=== PATIENT | female | born 1930 | race Caucasian/White ===

== ENCOUNTER 2016-09-21 16:58 | Inpatient (IN) | payer MEDICARE ==
[~2016-09-21] VITALS: Ht 154.9 cm; Wt 75.4 kg
[2016-09-21 17:49] VITALS: BP 145/79
[2016-09-21] MEDS ORDERED: DOCU100C5 PO (17:58)
[2016-09-21] MEDS ORDERED: LORA1TAB PO ×2 (17:58→18:05)
[2016-09-21] MEDS ORDERED: DULO30CA2 PO (18:05)
[2016-09-21] MEDS ORDERED: RIVA1PAT3 TD (18:05)
[2016-09-21] MEDS ORDERED: OLAN5TAB9 PO (18:05)
[2016-09-21] MEDS ORDERED: CYCL1DRO EACHEYE (18:30)
[2016-09-21] MEDS ORDERED: POLY1DRO OU (18:30)
[2016-09-21] MEDS ORDERED: TRAM50TA PO (18:30)
[2016-09-21] MEDS ORDERED: BISA10SU2 RC (18:30)
[2016-09-21] MEDS ORDERED: RANI150C PO (18:30)
[2016-09-21] MEDS ORDERED: FLUT9.9S NS (18:30)
[2016-09-21] MEDS ORDERED: SALI10002 PO (18:30)
[2016-09-21] MEDS ORDERED: CALC625T44 PO (18:30)
[2016-09-21] MEDS ORDERED: FURO20TA3 PO (18:30)
[2016-09-21] MEDS ORDERED: IPRA3AMP NEB (18:30)
[2016-09-21] MEDS ORDERED: GUAI100L12 PO (18:30)
[2016-09-21] MEDS ORDERED: ACET500T68 PO (18:30)
[2016-09-21] MEDS ORDERED: NYST1000 PO (18:30)
[2016-09-21] MEDS ORDERED: CELE200C PO (18:30)
[2016-09-21] MEDS ORDERED: POLY17PO3 PO (18:30)
[2016-09-21] MEDS ORDERED: BISA5TAB4 PO (18:30)
[2016-09-21] MEDS ORDERED: MAGNESIUM HYDROXIDE 2,400 MG/30 ML ORAL.SUSP. PO PRN (20:45)
[2016-09-21] MEDS ORDERED: ACETAMINOPHEN 325 MG TABLET PO PRN (20:45)
[2016-09-21] MEDS ORDERED: METHYL SALICYLATE/MENTHOL TOPICAL OINTMENT 29GM TUBE. TP PRN (20:45)
[2016-09-21] MEDS ORDERED: MAG HYDROX/AL HYDROX/SIMETH 30 ML ORAL.SUSP PO PRN (20:45)
[2016-09-21] MEDS ORDERED: LORAZEPAM 1 MG TABLET. PO PRN (20:45)
[2016-09-21] MEDS ORDERED: NYSTATIN 100,000 UNITS/ML ORAL SUSPENSION 60ML BOTTLE. PO SCH (21:00)
[2016-09-21] MEDS: CELECOXIB 200 MG CAPSULE PO SCH (21:00)
[2016-09-21] MEDS: CYCLOSPORINE 0.05% OPTH DROPERETTE. OU SCH (21:00)
[2016-09-21] MEDS ORDERED: TRAMADOL 50 MG TABLET. PO PRN (21:00)
[2016-09-21] MEDS ORDERED: BISACODYL TAB 5 MG TABLET.DR. PO PRN (21:00)
[2016-09-21] MEDS: POLYVINYL ALCOHOL/POVIDONE/PF OPHTH SOLUTION DROPERETTE. OU SCH (21:00)
[2016-09-21] MEDS: DOCUSATE SODIUM 100 MG CAPSULE PO SCH (21:00)
[2016-09-21] MEDS ORDERED: [UNRECOGNIZED DRUG - REMARK] NS SCH (21:00)
[2016-09-21] MEDS ORDERED: BISACODYL 10 MG SUPP.RECT RC PRN (21:00)
[2016-09-21] MEDS ORDERED: GUAIFENESIN 300 MG/15 ML LIQUID. PO PRN (21:00)
[2016-09-21] MEDS ORDERED: NON FORMULARY ITEM (Ranitidine Hcl 150 MG) PO SCH (21:00)
[2016-09-21] MEDS: LORAZEPAM 1 MG TABLET. PO SCH (21:47)
[2016-09-21] MEDS ORDERED: ALBUTEROL SULFATE 2.5 MG/3 ML NEBU. NEB PRN (22:00)
[2016-09-21] MEDS ORDERED: OLAN2.5T5 PO (23:15)
[2016-09-21] MEDS ORDERED: RIVA1PAT5 TD (23:15)
--- NOTE | 2016-09-22 04:12 | EKG ---
[address] [address] Test Date: 2016-09-21 Test Time: 22:20:45 Pat Name: SALBADOR HAQ Department: Room: [facility] 1 Gender: F [employer]: SAM : 1930 Requested By: CRISTINO JI Order Number: [id number] Reading MD: Measurements Intervals [place] Rate: 64 P: 59 [place]: 232 QRS: 2 QRSD: 76 T: 68 QT: 410 QTc: 427 Interpretive Statements SINUS RHYTHM PROLONGED [place] INTERVAL QRS(T) CONTOUR ABNORMALITY CONSISTENT WITH INFERIOR INFARCT PROBABLY OLD T ABNORMALITY IN HIGH LATERAL LEADS RI6.01 Unconfirmed report No previous ECG available for comparison
[2016-09-22 06:27] VITALS: BP 136/73
[2016-09-22 08:21] LABS: BASO % 1 % (0-3); EOS # 0.1 x10^3/uL (0.0-0.7); EOS % 2 % (0-3); HEMATOCRIT 40.4 % (36.0-47.0); HEMOGLOBIN 13.6 g/dL (12.0-15.5); LYMPH # 1.3 x10^3/uL (1.0-4.8); LYMPH % 29 % (24-48); MEAN CORPUSCULAR HEMOGLOBIN 32 pg (25-35); MEAN CORPUSCULAR HGB CONC 34 g/dL (31-37); MEAN CORPUSCULAR VOLUME 94 fL (79-100); MONO # 0.4 x10^3/uL (0.0-1.1); MONO % 9 % (0-9); NEUT # 2.8 x10^3uL (1.8-7.7); NEUT % 60 % (31-73); PLATELET COUNT 233 x10^3/uL (140-400); RED BLOOD COUNT 4.29 x10^6/uL (3.50-5.40); RED CELL DISTRIBUTION WIDTH 13.4 % (11.5-14.5); WHITE BLOOD COUNT 4.6 x10^3/uL (4.0-11.0)
[2016-09-22 08:37] LABS: ALBUMIN 3.9 g/dL (3.4-5.0); ALBUMIN/GLOBULIN RATIO 1.1 (1.0-1.7); CALCIUM 9.4 mg/dL (8.5-10.1); CREATININE 0.8 mg/dL (0.6-1.0); MAGNESIUM 2.1 mg/dL (1.8-2.4); POTASSIUM 3.9 mmol/L (3.5-5.1); TOTAL BILIRUBIN 0.7 mg/dL (0.2-1.0); TOTAL PROTEIN 7.4 g/dL (6.4-8.2)
--- NOTE | 2016-09-22 08:37 | PDOC ---
Exam Rudolph Demential Exam: Rudolph Note: Please also refer to the separate dictated note~for this date of service dictated separately.~Patient seen individually. Discussed the patient with Nursing staff reviewed the chart.~Reviewed interim history and current functioning. Reviewed vital signs,~Labs/ Radiology~and current medications noted below. Continue current treatment with the changes noted in the dictated addendum note Assessment: Vital Signs: Vital Signs Date Time Temp Pulse Resp B/P Pulse Ox O2 Delivery O2 Flow Rate FiO2 09/22/16 06:27 98.2 69 18 136/73 98 I&O Intake and Output 09/22/16 07:00 Intake Total 360 ml Balance 360 ml Intake Oral 360 ml Labs: Laboratory Tests Test 09/22/16 07:58 White Blood Count 4.6x10^3/uL (4.0-11.0) Red Blood Count 4.29x10^6/uL (3.50-5.40) Hemoglobin 13.6g/dL (12.0-15.5) Hematocrit 40.4% (36.0-47.0) Mean Corpuscular Volume 94fL (79-100) Mean Corpuscular Hemoglobin 32pg (25-35) Mean Corpuscular Hemoglobin Concent 34g/dL (31-37) Red Cell Distribution Width 13.4% (11.5-14.5) Platelet Count 233x10^3/uL (140-400) Neutrophils (%) (Auto) 60% (31-73) Lymphocytes (%) (Auto) 29% (24-48) Monocytes (%) (Auto) 9% (0-9) Eosinophils (%) (Auto) 2% (0-3) Basophils (%) (Auto) 1% (0-3) Neutrophils # (Auto) 2.8x10^3uL (1.8-7.7) Lymphocytes # (Auto) 1.3x10^3/uL (1.0-4.8) Monocytes # (Auto) 0.4x10^3/uL (0.0-1.1) Eosinophils # (Auto) 0.1x10^3/uL (0.0-0.7) Basophils # (Auto) 0.0x10^3/uL (0.0-0.2) Current Medications: Meds: Current Medications Acetaminophen (Tylenol) 650 mg PRN Q6HRS PRN PO MILD PAIN / TEMP; Start at 20:45 Multi-Ingredient Ointment (Analgesic [place]) 1 alejandra PRN QID PRN TP MUSCLE PAIN; Start 09/21/16 at 20:45 Al Hydroxide/Mg Hydroxide (Mylanta Plus Xs) 15 ml PRN AFTMEALHC PRN PO DYSPEPSIA; Start 09/21/16 at 20:45 Magnesium Hydroxide (Milk Of Magnesia) 2,400 mg PRN QHS PRN PO CONSTIPATION; Start 09/21/16 at 20:45 Duloxetine HCl (Cymbalta) 30 mg DAILY PO ; Start 09/22/16 at 09:00 Lorazepam (Ativan) 1 mg PRN DAILY PRN PO ANXIETY; Start 09/21/16 at 20:45 Lorazepam (Ativan) 1 mg TID PO Last administered on 09/21/16t 21:47; Start at 21:00 Olanzapine (Zyprexa) 2.5 mg DAILY PO ; Start 09/22/16 at 09:00; Stop 09/22/16 at 09:00; Status DC Rivastigmine (Exelon) 1 patch DAILY TD ; Start 09/22/16 at 09:00; Stop 09/22/16 at 09:00; Status DC Bisacodyl (Dulcolax Tab) 10 mg PRN DAILY PRN PO CONSTIPATION; Start 09/21/16 at 21:00 Bisacodyl (Dulcolax Supp) 10 mg PRN DAILY PRN RC CONSTIPATION; Start 09/21/16 at 21:00 Calcium Polycarbophil (Fibercon) 625 mg DAILY PO ; Start 09/22/16 at 09:00 Celecoxib (Celebrex) 200 mg BID PO ; Start 09/21/16 at 21:00 Cyclosporine (Restasis) 1 drop BID OU ; Start 09/21/16 at 21:00 Docusate Sodium (Colace) 100 mg BID PO ; Start 09/21/16 at 21:00 Furosemide (Lasix) 20 mg Q3DAYS PO ; Start 09/24/16 at 09:00 Guaifenesin (Robitussin) 100 mg PRN Q6HRS PRN PO COUGH; Start 09/21/16 at 21:00 Albuterol Sulfate (Ventolin) 2.5 mg PRN Q4HRS PRN NEB SHORTNESS OF BREATH; Start 09/21/16 at 22:00 Nystatin (Mycostatin) 1 ml TID PO ; Start 09/21/16 at 21:00; Stop 09/21/16 at 23: 18; Status DC Polyethylene Glycol (miraLAX) 17 gm DAILY PO ; Start 09/22/16 at 09:00 Artificial Tears (Refresh Classic) 1 drop BID OU ; Start 09/21/16 at 21:00 Saliva Substitute (Biotene Dry Mouth) 1 alejandra DAILY PO ; Start 09/22/16 at 09:00 Tramadol HCl (Ultram) 50 mg PRN QID PRN PO MODERATE PAIN; Start 09/21/16 at 21: 00; Stop 09/21/16 at 23:18; Status DC Non-Formulary Medication 1 sprays BID NS ; Start 09/21/16 at 21:00; Stop 09/21/16 at 21:48; Status DC Non-Formulary Medication 150 mg BID PO ; Start 09/21/16 at 21:00; Stop 09/21/16 at 21:48; Status DC Fluticasone Propionate (Flonase) 2 spray DAILY NS ; Start 09/22/16 at 09:00 Famotidine (Pepcid) 20 mg BID PO ; Start 09/21/16 at 22:00 Nystatin (Mycostatin) 5 ml TID PO ; Start 09/22/16 at 09:00; Stop 09/26/16 at 08: 59 Olanzapine (Zyprexa) 2.5 mg DAILY PO ; Start 09/22/16 at 09:00 Rivastigmine (Exelon 13.3mg) 1 patch DAILY TD ; Start 09/22/16 at 09:00 Active Scripts Active Reported Olanzapine 2.5 Mg Tablet 2.5 Mg PO DAILY EXELON 13.3mg/24hr (Rivastigmine) 1 Each Patch.td24 1 Patch TD DAILY Nystatin 100,000 Unit/1 Ml Oral.susp 5 Ml PO TID 4 Days Stop Date 09/25/16 Furosemide 20 Mg Tablet 20 Mg PO Q3DAYS Bisacodyl 5 Mg Tablet.dr 10 Mg PO PRN DAILY PRN Tramadol Hcl (Tramadol HCl) 50 Mg Tablet 50 Mg PO PRN BID PRN Biotene (Saliva Substitution Combo No.9) 1,000 Ml Mouthwash 30 Ml PO DAILY Guaifenesin 100 Mg/5 Ml Liquid 100 Mg PO PRN Q6HRS PRN Duoneb 0.5-3(2.5) Mg/3 Ml (Albuterol/Ipratropium) 3 Ml Ampul.neb 3 Ml NEB PRN Q4HRS PRN Ranitidine Hcl 150 Mg Capsule 150 Mg PO BID Refresh Classic Eye Drops (Polyvinyl Alcohol/Povidone/Pf) 1 Each Droperette 1 Drop OU BID Flonase Allergy Relief (Fluticasone Propionate) 9.9 Ml [place].susp 1 Sprays NS BID Celebrex (Celecoxib) 200 Mg Capsule 200 Mg PO BID Bisacodyl 10 Mg Supp.rect 10 Mg RC PRN DAILY PRN Acetaminophen 500 Mg Tablet 500 Mg PO PRN Q4HRS PRN Restasis (Cyclosporine) 1 Each Droperette 1 Drop EACHEYE BID Polyethylene Glycol 3350 17 Gm Powd.pack 17 Gm PO DAILY Fiber-Tabs (Calcium Polycarbophil) 625 Mg Tablet 625 Mg PO DAILY Cymbalta (Duloxetine Hcl) 30 Mg Capsule.dr 30 Mg PO DAILY 14 Days Stop Date 10/05/16 Lorazepam 1 Mg Tablet 1 Mg PO TID 12 Days Stop Date 10/03/16 Lorazepam 1 Mg Tablet 1 Mg PO DAILY PRN Docusate Sodium 100 Mg Capsule 100 Mg PO BID CRISTINO JI MD Sep 22, 2016 08:37
[2016-09-22] MEDS: POLYVINYL ALCOHOL/POVIDONE/PF OPHTH SOLUTION DROPERETTE. OU SCH ×2 (08:49→19:39)
[2016-09-22] MEDS: DOCUSATE SODIUM 100 MG CAPSULE PO SCH ×2 (08:49→19:39)
[2016-09-22] MEDS: CYCLOSPORINE 0.05% OPTH DROPERETTE. OU SCH ×2 (08:49→20:06)
[2016-09-22] MEDS: FAMOTIDINE 20 MG TABLET PO SCH ×2 (08:49→19:39)
[2016-09-22] MEDS: CELECOXIB 200 MG CAPSULE PO SCH ×2 (08:49→19:39)
[2016-09-22] MEDS: LORAZEPAM 1 MG TABLET. PO SCH ×2 (08:50→14:46)
[2016-09-22] MEDS: SALIVA STIMULANT AGENT MOUTHWASH 237ML BOTTLE. PO SCH (08:55)
[2016-09-22] MEDS: FLUTICASONE 50MCG/NASAL SPRAY 16GM BOTTLE. NS SCH (08:55)
[2016-09-22] MEDS: DULOXETINE HCL 30 MG CAPSULE.DR. PO SCH (08:56)
[2016-09-22] MEDS: POLYETHYLENE GLYCOL 3350 17 GM PACKET. PO SCH (08:56)
[2016-09-22] MEDS: OLANZAPINE 2.5 MG TABLET PO SCH (08:56)
[2016-09-22] MEDS: NYSTATIN 100,000 UNITS/ML ORAL SUSPENSION 60ML BOTTLE. PO SCH ×3 (08:56→19:39)
[2016-09-22] MEDS: CALCIUM POLYCARBOPHIL 625 MG TABLET PO SCH (08:56)
[2016-09-22] MEDS: RIVASTIGMINE 13.3MG PATCH. TD SCH (08:56)
[2016-09-22] MEDS ORDERED: RIVASTIGMINE 9.5MG PATCH. TD SCH (09:00)
[2016-09-22] MEDS ORDERED: OLANZAPINE 5 MG TABLET. PO SCH (09:00)
[2016-09-22 10:37] LABS: THYROID STIM HORMONE (TSH) 1.354 uIU/mL (0.358-3.740)
[2016-09-22 10:38] LABS: IRON,SERUM 97 ug/dL (50-170)
[2016-09-22 13:09] LABS: T3 TOTAL 124 ng/dL (71-180); THYROXINE 8.4 ug/dL (4.5-12.0)
[2016-09-22 15:36] VITALS: BP 103/57
[2016-09-22] MEDS: CIPROFLOXACIN HCL 250 MG TABLET PO SCH (20:06)
[2016-09-22] MEDS: LORAZEPAM 0.5 MG TABLET PO SCH (20:06)
[2016-09-22 21:08] LABS: VITAMIN D25(OH)TOTAL 24.4 ng/mL (30.0-100.0)
--- NOTE | 2016-09-22 22:49 | HP ---
ADMIT DATE: 09/21/2016 This is a late entry for 09/21/2016. The patient was seen individually evening of 09/21/2016. Discussed with nursing staff, reviewed current and past records, talked with the nursing staff earlier in the day on 09/21/2016 as well for this assessment. IDENTIFYING DATA: The patient is an 86-year-old female referred to us from [facility] Emergency Room, [place], [place] after she presented there from [facility] on account of increasing agitation, past diagnosis of schizoaffective disorder, bipolar type with worsening confusion, auditory and visual hallucinations, paranoia, not sleeping for about 3 days and then she finally slept. She believes people are trying to kill her and that her designated power of staff attorney is the rooney. She has been threatening to kill people. Symptoms worsening for about 1 week at that facility. Behaviors noted to be dangerous to self and others. Having failed outpatient psychiatric interventions, she is referred for inpatient psychiatric stabilization. CHIEF COMPLAINT: "I didn't say any of those things." HISTORY OF PRESENT ILLNESS: Reportedly, the patient has a history of schizoaffective disorder, bipolar type, though she denies she has ever seen a psychiatrist before this. Cognitively, she is reasonably intact. Behaviors have been worsening for the past 7-10 days with increased psychotic symptoms, dangerous behaviors resulting in this referral. The patient does have a history of mood swings and denies active suicidal or homicidal ideation, but dangerous behaviors as noted above. PAST PSYCHIATRIC HISTORY: As above. PAST MEDICAL HISTORY: The patient was seen at the [facility] Emergency Room prior to admission. There is a questionable history of UTI. Culture is pending and UA was repeated. She has a history of Parkinson's disease, frequent falls, polyosteoarthritis, hypertension, generalized anxiety disorder, hyperlipidemia, insomnia. ALLERGIES: PENICILLIN, SULFA, POLYMYXIN B EYEDROPS. CURRENT PSYCHOTROPICS: Exelon patch 13.3 mg a day, Ativan 1 mg 3 times a day that 09/19/2016, Cymbalta 30 mg a day, Zyprexa 2.5 mg daily. FAMILY HISTORY: Noncontributory. SOCIAL HISTORY: No alcohol, drug abuse, physical, sexual or elder abuse history is noted. She is not known to be a perpetrator. MENTAL STATUS EXAMINATION: The patient was seen individually evening of 09/21/2016. She is reasonably oriented. Ambulation impaired, in a wheelchair. No CV, , pulmonary, eye system symptoms on review. MENTAL STATUS EXAM: Reasonably oriented. Speech coherent, a little pressured at times. Abstraction fair, computation impaired, language function intact, attention span short, mood and affect somewhat grandiose at times. VITAL SIGNS: Temperature 97.5, pulse 71, BP 145/79. IMPRESSION: Schizoaffective disorder, bipolar type, mixed with psychotic features, anxiety disorder, unspecified; impulse control disorder, unspecified. Rest diagnoses as above. PLAN: Admit to the Geropsychiatry Unit at [facility]. I will see the patient daily individually from a psychiatric standpoint. Medical followup with Dr. Andrew/Dr. Vance. We will consider tapering the Ativan. Consider changing Zyprexa to Seroquel post baseline assessment, treating the UTI if this is evident. Further changes will be made after initial baseline assessment. MAN Alexandr JI MD DR: ONEL/sarah JOB#: [id number] / [id number]
[2016-09-23 01:08] LABS: HEMOGLOBIN A1C 5.1 % (4.8-5.6)
[2016-09-23 06:28] VITALS: BP 115/78
--- NOTE | 2016-09-23 07:33 | CONS ---
DATE OF CONSULTATION: 09/22/2016 CONSULT FOR MEDICAL MANAGEMENT HISTORY OF PRESENT ILLNESS: The patient is an 86-year-old female patient, a resident at [facility], who apparently seen was at Emergency Room on the account of being agitated, confused. She has also audio and visual hallucinations, paranoid. She apparently has not slept for 3 days and when she awakens, she thinks that she told that people are trying to kill her, specifically her DPOA, all this in the background of schizophrenia and bipolar disorder. PAST MEDICAL HISTORY: Significant for chronic obstructive pulmonary disease, hypertension, hyperlipidemia, osteoarthritis, and osteoporosis. PAST SURGICAL HISTORY: Significant for bilateral total knee arthroplasty. ALLERGIES: She is allergic to PENICILLIN AND SULFA DRUGS and POLYMYXIN B. MEDICATIONS: She is currently on the following medications: Acetaminophen 500 mg every 4 hours, bisacodyl 10 mg suppositories rectally once a day as needed, bisacodyl 10 mg p.o. daily as needed for constipation, calcium polycarbophil 625 mg tablets once a day for constipation, Celebrex 200 mg p.o. b.i.d., Restasis 1 drop to both eyes twice a day, Colace 100 mg twice a day, duloxetine for Cymbalta 30 mg once a day. She is on Flonase 1 spray to each nostril twice a day, furosemide 20 mg every other day, guaifenesin 100 mg every 6 hours, DuoNeb 3 mL by nebulizer every 4 hours as needed, lorazepam 1 mg 3 times a day for anxiety. She is on nystatin 100,000 units per mL, 5 mL t.i.d. for 4 days for oral thrush, olanzapine 2.5 mg daily, polyethylene glycol 17 grams once a day, polyvinyl alcohol or Refresh 1 drop to both eyes twice a day, ranitidine 150 mg twice a day, rivastigmine 13.3 mg per 24 hour patch topically daily, saliva substitution for Biotene 30 mL p.o. daily and tramadol 50 mg p.o. b.i.d. p.r.n. for pain. FAMILY HISTORY: Unremarkable. SOCIAL HISTORY: She is currently residing at a [facility]. She does not smoke, drink alcohol or use any illicit drugs. Her DPOA is a family friend. PHYSICAL EXAMINATION: GENERAL: On examining her, she looked well and was clearly in no apparent respiratory distress, no pallor, jaundice, cyanosis, or thyromegaly. No jugular venous distension. No lower limb edema. VITAL SIGNS: Her heart rate was 75, blood pressure was 103/57, temperature was 97.3, respiratory rate 20, and oxygen saturation was 95%. The rest of clinical examination is unremarkable walk. She apparently is wheelchair bound. She self propel herself. She is a 2-person transfer from bed to wheelchair and vice versa. LABORATORY DATA: Showed a white cell count 4600, hemoglobin 13.6, hematocrit 40, MCV 94 and platelet count 233,000. Her chemistry showed a serum sodium 136, potassium 3.9, chloride 98, bicarbonate 29, anion gap of 9, BUN 11, creatinine 0.8, estimated GFR was 68 mL per minute. Her glucose was 100, calcium was 9.4, magnesium 2.1. Serum iron was 97, total iron binding capacity was 334 and iron saturation was 29. Her total bilirubin, AST, ALT, alkaline phosphatase were normal. Total protein was 7.4, albumin 3.9. Serum triglycerides were 87, cholesterol was 99, LDL was 111, VLDL was 17, HDL cholesterol was 71 and the ratio of cholesterol to high density lipoprotein ratio was 2. Her TSH was 1.35, total T4 was 8.4. Total T3 was 124. Her RPR titer are still pending at the time of this dictation. IMPRESSION: In summary, this is an 86-year-old female patient who was admitted on the account of agitation, confusion, audio and visual hallucinations, paranoid, severe insomnia. All this in the background of schizophrenic disorder with bipolar type. She is here for inpatient psychiatric stabilization. She has multiple medical problems including COPD, hypertension, hyperlipidemia, osteoarthritis, osteoporosis. She is wheelchair bound. She self propel herself, and she is a 2-person assist. Medically, all her vital signs are stable and all her lab works are all within acceptable range. I reviewed all her medications and seem to be appropriate. I will definitely continue on all these medications. Thank you, Dr. Hernandez for allowing me to participate in the care of this patient. JERRY GARCIA MD DR: MARGARITA/sarah JOB#: [id number] / [id number]
[2016-09-23] MEDS: SALIVA STIMULANT AGENT MOUTHWASH 237ML BOTTLE. PO SCH (09:07)
[2016-09-23] MEDS: NYSTATIN 100,000 UNITS/ML ORAL SUSPENSION 60ML BOTTLE. PO SCH ×3 (09:08→21:55)
[2016-09-23] MEDS: DOCUSATE SODIUM 100 MG CAPSULE PO SCH ×2 (09:09→21:51)
[2016-09-23] MEDS: DULOXETINE HCL 30 MG CAPSULE.DR. PO SCH (09:09)
[2016-09-23] MEDS: CALCIUM POLYCARBOPHIL 625 MG TABLET PO SCH (09:09)
[2016-09-23] MEDS: FAMOTIDINE 20 MG TABLET PO SCH ×2 (09:09→21:51)
[2016-09-23] MEDS: CYCLOSPORINE 0.05% OPTH DROPERETTE. OU SCH ×2 (09:10→21:50)
[2016-09-23] MEDS: CELECOXIB 200 MG CAPSULE PO SCH ×2 (09:10→21:51)
[2016-09-23] MEDS: CIPROFLOXACIN HCL 250 MG TABLET PO SCH ×2 (09:10→21:51)
[2016-09-23] MEDS: RIVASTIGMINE 13.3MG PATCH. TD SCH (09:10)
[2016-09-23] MEDS: POLYETHYLENE GLYCOL 3350 17 GM PACKET. PO SCH (09:10)
[2016-09-23] MEDS: OLANZAPINE 2.5 MG TABLET PO SCH (09:10)
[2016-09-23] MEDS: QUEtiapine 25 MG TABLET. PO SCH ×2 (09:16→14:18)
[2016-09-23] MEDS: LORAZEPAM 0.5 MG TABLET PO SCH ×3 (09:17→21:57)
[2016-09-23] MEDS: POLYVINYL ALCOHOL/POVIDONE/PF OPHTH SOLUTION DROPERETTE. OU SCH ×2 (09:18→21:50)
[2016-09-23] MEDS: FLUTICASONE 50MCG/NASAL SPRAY 16GM BOTTLE. NS SCH (09:18)
--- NOTE | 2016-09-23 09:29 | PN ---
DATE: 09/22/2016 PSYCHIATRIC PROGRESS NOTE SUBJECTIVE: The patient was seen on rounds the evening of 09/22/2016. Discussed the patient with the nursing staff, reviewed the chart. This note covers the elements not covered in my initial note. Overall, the patient's UA showed mixed [place], repeat specimen has been sent to culture. She is well oriented per nursing staff, quite delusional about her DPOA per nursing report. She is paranoid a little suspicious as I met with her at length individually. REVIEW OF SYSTEMS: Ambulation impaired, in a wheelchair. No CV, , pulmonary, eye system symptoms on review. MENTAL STATUS EXAM: Reasonably oriented. Speech coherent, rapid at times. Abstraction fair, computation impaired, language function intact, attention span short. Mood and affect somewhat labile. No active suicidal or homicidal ideation. LABORATORY DATA: Reviewed. IMPRESSION: Schizoaffective disorder, bipolar type, mixed with psychotic features, in partial remission; anxiety disorder, unspecified; impulse control disorder, unspecified; probable urinary tract infection. Rest diagnosis unchanged. PLAN: Currently, Ativan is 1 mg t.i.d. and we will gradually taper it. Continue Exelon patch 13.3 mg a day, Cymbalta 30 mg a day. Change the Zyprexa 2.5 mg daily to Seroquel 12.5 mg twice a day plus Zyprexa p.r.n. Adjust further as clinically indicated. CRISTINO JI MD DR: ONEL/sarah JOB#: [id number] / [id number]
[2016-09-23 16:24] VITALS: BP 111/74
[2016-09-23] MEDS ORDERED: FOSFOMYCIN TROMETHAMINE 3 GM PACKET PO ONE (17:45)
[2016-09-24 03:09] LABS: RPR REFLEX Negative (Non Reactive)
[2016-09-24 05:57] VITALS: BP 145/75
[2016-09-24] MEDS: SALIVA STIMULANT AGENT MOUTHWASH 237ML BOTTLE. PO SCH (08:32)
[2016-09-24] MEDS: FLUTICASONE 50MCG/NASAL SPRAY 16GM BOTTLE. NS SCH (08:32)
[2016-09-24] MEDS: POLYVINYL ALCOHOL/POVIDONE/PF OPHTH SOLUTION DROPERETTE. OU SCH ×2 (08:32→19:30)
[2016-09-24] MEDS: CYCLOSPORINE 0.05% OPTH DROPERETTE. OU SCH ×2 (08:32→19:30)
[2016-09-24] MEDS: CELECOXIB 200 MG CAPSULE PO SCH ×2 (08:32→19:30)
[2016-09-24] MEDS: DOCUSATE SODIUM 100 MG CAPSULE PO SCH ×2 (08:34→19:30)
[2016-09-24] MEDS: QUEtiapine 25 MG TABLET. PO SCH ×2 (08:34→14:20)
[2016-09-24] MEDS: CALCIUM POLYCARBOPHIL 625 MG TABLET PO SCH (08:34)
[2016-09-24] MEDS: POLYETHYLENE GLYCOL 3350 17 GM PACKET. PO SCH (08:35)
[2016-09-24] MEDS: OLANZAPINE 2.5 MG TABLET PO SCH (08:35)
[2016-09-24] MEDS: RIVASTIGMINE 13.3MG PATCH. TD SCH (08:35)
[2016-09-24] MEDS: FAMOTIDINE 20 MG TABLET PO SCH ×2 (08:35→19:30)
[2016-09-24] MEDS: CIPROFLOXACIN HCL 250 MG TABLET PO SCH ×2 (08:35→19:30)
[2016-09-24] MEDS: NYSTATIN 100,000 UNITS/ML ORAL SUSPENSION 60ML BOTTLE. PO SCH ×3 (08:35→19:33)
[2016-09-24] MEDS: LORAZEPAM 0.5 MG TABLET PO SCH ×3 (08:38→19:33)
[2016-09-24] MEDS: FUROSEMIDE 20 MG TABLET PO SCH (08:38)
[2016-09-24] MEDS: DULOXETINE HCL 30 MG CAPSULE.DR. PO SCH (08:39)
[2016-09-24 15:50] VITALS: BP 156/63
[2016-09-25 06:11] VITALS: BP 131/72
--- NOTE | 2016-09-25 07:08 | PN ---
DATE: 09/23/2016 This is a late entry for 09/23/2016, covers elements not covered in my initial note. SUBJECTIVE: Per nursing report, the patient was extremely agitated the previous evening when male staff was trying to help her with the shower. She is labile, screaming, well oriented x 4. On 09/23/2016, she has done well, had a shower with female nursing staff. We will avoid male staff helping her during showers to avoid the above. REVIEW OF SYSTEMS: Ambulation impaired, in her wheelchair. No CV, , pulmonary, eye system symptoms on review. MENTAL STATUS EXAM: Reasonably oriented. Speech coherent, abstraction fair, computation impaired, language function intact, attention span short. Mood and affect, lability is improved. LABORATORY DATA: Reviewed. IMPRESSION: History of schizoaffective disorder, bipolar type, with psychotic features; anxiety disorder, unspecified. PLAN: Continue Exelon patch 13.3 mg a day, Cymbalta 30 mg a day, Seroquel 12.5 b.i.d., Ativan is being tapered. Adjust further as clinically indicated. MAN Alexandr JI MD DR: ONEL/sarah JOB#: [id number] / [id number]
--- NOTE | 2016-09-25 08:03 | PDOC ---
Exam Rudolph Demential Exam: Rudolph Note: Please also refer to the separate dictated note~for this date of service dictated separately.~Patient seen individually. Discussed the patient with Nursing staff reviewed the chart.~Reviewed interim history and current functioning. Reviewed vital signs,~Labs/ Radiology~and current medications noted below. Continue current treatment with the changes noted in the dictated addendum note Assessment: Vital Signs: Vital Signs Date Time Temp Pulse Resp B/P Pulse Ox O2 Delivery O2 Flow Rate FiO2 09/25/16 06:11 97.0 87 22 131/72 95 09/23/16 16:24 Room Air I&O Intake and Output 09/25/16 07:00 Intake Total 840 ml Balance 840 ml Intake Oral 840 ml Current Medications: Meds: Current Medications Acetaminophen (Tylenol) 650 mg PRN Q6HRS PRN PO MILD PAIN / TEMP; Start at 20:45 Multi-Ingredient Ointment (Analgesic [employer]) 1 alejandra PRN QID PRN TP MUSCLE PAIN; Start 09/21/16 at 20:45 Al Hydroxide/Mg Hydroxide (Mylanta Plus Xs) 15 ml PRN AFTMEALHC PRN PO DYSPEPSIA; Start 09/21/16 at 20:45 Magnesium Hydroxide (Milk Of Magnesia) 2,400 mg PRN QHS PRN PO CONSTIPATION Last administered on 09/24/16 14:22; Start 09/21/16 at 20:45 Duloxetine HCl (Cymbalta) 30 mg DAILY PO Last administered on 09/24/16 08:39; Start 09/22/16 at 09:00 Lorazepam (Ativan) 1 mg PRN DAILY PRN PO ANXIETY; Start 09/21/16 at 20:45 Lorazepam (Ativan) 1 mg TID PO Last administered on 09/22/16 14:46; Start at 21:00; Stop 09/22/16 at 18:35; Status DC Olanzapine (Zyprexa) 2.5 mg DAILY PO ; Start 09/22/16 at 09:00; Stop 09/22/16 at 09:00; Status DC Rivastigmine (Exelon) 1 patch DAILY TD ; Start 09/22/16 at 09:00; Stop 09/22/16 at 09:00; Status DC Bisacodyl (Dulcolax Tab) 10 mg PRN DAILY PRN PO CONSTIPATION; Start 09/21/16 at 21:00 Bisacodyl (Dulcolax Supp) 10 mg PRN DAILY PRN RC CONSTIPATION; Start 09/21/16 at 21:00 Calcium Polycarbophil (Fibercon) 625 mg DAILY PO Last administered on 09/24/16 08:34; Start 09/22/16 at 09:00 Celecoxib (Celebrex) 200 mg BID PO Last administered on 09/24/16 19:30; Start 09/21/16 at 21:00 Cyclosporine (Restasis) 1 drop BID OU Last administered on 09/24/16 19:30; Start 09/21/16 at 21:00 Docusate Sodium (Colace) 100 mg BID PO Last administered on 09/24/16 19:30; Start 09/21/16 at 21:00 Furosemide (Lasix) 20 mg Q3DAYS PO Last administered on 09/24/16 08:38; Start 09/24/16 at 09:00 Guaifenesin (Robitussin) 100 mg PRN Q6HRS PRN PO COUGH; Start 09/21/16 at 21:00 Albuterol Sulfate (Ventolin) 2.5 mg PRN Q4HRS PRN NEB SHORTNESS OF BREATH; Start 09/21/16 at 22:00 Nystatin (Mycostatin) 1 ml TID PO ; Start 09/21/16 at 21:00; Stop 09/21/16 at 23: 18; Status DC Polyethylene Glycol (miraLAX) 17 gm DAILY PO Last administered on 09/24/16 08: 35; Start 09/22/16 at 09:00 Artificial Tears (Refresh Classic) 1 drop BID OU Last administered on 09/24/16 19:30; Start 09/21/16 at 21:00 Saliva Substitute (Biotene Dry Mouth) 1 alejandra DAILY PO Last administered on 08:32; Start 09/22/16 at 09:00 Tramadol HCl (Ultram) 50 mg PRN QID PRN PO MODERATE PAIN; Start 09/21/16 at 21: 00; Stop 09/21/16 at 23:18; Status DC Non-Formulary Medication 1 sprays BID NS ; Start 09/21/16 at 21:00; Stop 09/21/16 at 21:48; Status DC Non-Formulary Medication 150 mg BID PO ; Start 09/21/16 at 21:00; Stop 09/21/16 at 21:48; Status DC Fluticasone Propionate (Flonase) 2 spray DAILY NS Last administered on 08:32; Start 09/22/16 at 09:00 Famotidine (Pepcid) 20 mg BID PO Last administered on 09/24/16 19:30; Start 09/21/16 at 22:00 Nystatin (Mycostatin) 5 ml TID PO Last administered on 09/24/16 19:33; Start at 09:00; Stop 09/26/16 at 08:59 Olanzapine (Zyprexa) 2.5 mg DAILY PO Last administered on 09/24/16 08:35; Start 09/22/16 at 09:00 Rivastigmine (Exelon 13.3mg) 1 patch DAILY TD Last administered on 09/24/16 08: 35; Start 09/22/16 at 09:00 Ciprofloxacin (Cipro) 250 mg BID PO Last administered on 09/24/16 19:30; Start 09/22/16 at 21:00 Lorazepam (Ativan) 0.75 mg TID PO Last administered on 09/24/16 19:33; Start at 21:00; Stop 09/27/16 at 21:00 Lorazepam (Ativan) 0.5 mg TID PO ; Start 09/28/16 at 09:00; Stop 10/03/16 at 21: 00 Lorazepam (Ativan) 0.25 mg TID PO ; Start 10/04/16 at 09:00 Quetiapine Fumarate (SEROquel) 12.5 mg BID92 PO Last administered on 09/24/16 14:20; Start 09/23/16 at 09:00 Fosfomycin Tromethamine (Monurol) 3 gm 1X ONCE PO ; Start 09/23/16 at 17:45; Stop 09/23/16 at 18:07; Status DC Active Scripts Active Reported Olanzapine 2.5 Mg Tablet 2.5 Mg PO DAILY EXELON 13.3mg/24hr (Rivastigmine) 1 Each Patch.td24 1 Patch TD DAILY Nystatin 100,000 Unit/1 Ml Oral.susp 5 Ml PO TID 4 Days Stop Date 09/25/16 Furosemide 20 Mg Tablet 20 Mg PO Q3DAYS Bisacodyl 5 Mg Tablet.dr 10 Mg PO PRN DAILY PRN Tramadol Hcl (Tramadol HCl) 50 Mg Tablet 50 Mg PO PRN BID PRN Biotene (Saliva Substitution Combo No.9) 1,000 Ml Mouthwash 30 Ml PO DAILY Guaifenesin 100 Mg/5 Ml Liquid 100 Mg PO PRN Q6HRS PRN Duoneb 0.5-3(2.5) Mg/3 Ml (Albuterol/Ipratropium) 3 Ml Ampul.neb 3 Ml NEB PRN Q4HRS PRN Ranitidine Hcl 150 Mg Capsule 150 Mg PO BID Refresh Classic Eye Drops (Polyvinyl Alcohol/Povidone/Pf) 1 Each Droperette 1 Drop OU BID Flonase Allergy Relief (Fluticasone Propionate) 9.9 Ml [place].susp 1 Sprays NS BID Celebrex (Celecoxib) 200 Mg Capsule 200 Mg PO BID Bisacodyl 10 Mg Supp.rect 10 Mg RC PRN DAILY PRN Acetaminophen 500 Mg Tablet 500 Mg PO PRN Q4HRS PRN Restasis (Cyclosporine) 1 Each Droperette 1 Drop EACHEYE BID Polyethylene Glycol 3350 17 Gm Powd.pack 17 Gm PO DAILY Fiber-Tabs (Calcium Polycarbophil) 625 Mg Tablet 625 Mg PO DAILY Cymbalta (Duloxetine Hcl) 30 Mg Capsule.dr 30 Mg PO DAILY 14 Days Stop Date 10/05/16 Lorazepam 1 Mg Tablet 1 Mg PO TID 12 Days Stop Date 10/03/16 Lorazepam 1 Mg Tablet 1 Mg PO DAILY PRN Docusate Sodium 100 Mg Capsule 100 Mg PO BID Diagnosis: Problems: (1) Anxiety disorder (2) Bipolar affective, mixed, sev w/ psych (3) Impulse control disorder (4) Schizoaffective disorder, chronic condition with acute exacerbation CRISTINO JI MD Sep 25, 2016 08:03
[2016-09-25] MEDS: SALIVA STIMULANT AGENT MOUTHWASH 237ML BOTTLE. PO SCH (08:48)
[2016-09-25] MEDS: FLUTICASONE 50MCG/NASAL SPRAY 16GM BOTTLE. NS SCH (08:48)
[2016-09-25] MEDS: POLYETHYLENE GLYCOL 3350 17 GM PACKET. PO SCH (08:49)
[2016-09-25] MEDS: NYSTATIN 100,000 UNITS/ML ORAL SUSPENSION 60ML BOTTLE. PO SCH ×3 (08:49→20:41)
[2016-09-25] MEDS: RIVASTIGMINE 13.3MG PATCH. TD SCH (08:49)
[2016-09-25] MEDS: CELECOXIB 200 MG CAPSULE PO SCH ×2 (08:50→20:39)
[2016-09-25] MEDS: POLYVINYL ALCOHOL/POVIDONE/PF OPHTH SOLUTION DROPERETTE. OU SCH ×2 (08:50→20:39)
[2016-09-25] MEDS: DOCUSATE SODIUM 100 MG CAPSULE PO SCH ×2 (08:50→20:39)
[2016-09-25] MEDS: CYCLOSPORINE 0.05% OPTH DROPERETTE. OU SCH ×2 (08:50→20:39)
[2016-09-25] MEDS: CIPROFLOXACIN HCL 250 MG TABLET PO SCH ×2 (08:50→20:39)
[2016-09-25] MEDS: CALCIUM POLYCARBOPHIL 625 MG TABLET PO SCH (08:51)
[2016-09-25] MEDS: FAMOTIDINE 20 MG TABLET PO SCH ×2 (08:51→20:39)
[2016-09-25] MEDS: OLANZAPINE 2.5 MG TABLET PO SCH (08:51)
[2016-09-25] MEDS: DULOXETINE HCL 30 MG CAPSULE.DR. PO SCH (08:51)
[2016-09-25] MEDS: QUEtiapine 25 MG TABLET. PO SCH ×2 (08:51→14:09)
[2016-09-25] MEDS: LORAZEPAM 0.5 MG TABLET PO SCH ×3 (08:53→20:39)
[2016-09-25 16:17] VITALS: BP 120/71
--- NOTE | 2016-09-25 21:40 | PN ---
DATE: 09/24/2016 PSYCHIATRIC PROGRESS NOTE This note covers elements not covered in my initial note of 09/24/2016. SUBJECTIVE: Per nursing report, the patient at times has made statements that someone was going to torture her. Nursing staff; however, feel she was watching a television program and a movie where there was some of this as part of the different scenes and the patient seems to incorporate this. On close questioning, she is a little suspicious, but not delusional as above. REVIEW OF SYSTEMS: Ambulation impaired, in her wheelchair. No CV, , pulmonary, eye system symptoms on review. MENTAL STATUS EXAM: Reasonably oriented. Speech coherent, abstraction fair, computation impaired, language function intact, attention span short. Mood and affect, somewhat anxious, at times labile. No suicidal or homicidal ideation. LABORATORY DATA: Reviewed. IMPRESSION: Schizoaffective disorder, bipolar type, with psychotic features versus bipolar 1 disorder, unspecified; psychotic disorder, unspecified; anxiety disorder, unspecified. PLAN: Maintain Exelon patch 13.3 mg a day, Cymbalta 30 mg a day, Ativan is being tapered, Seroquel 12.5 mg b.i.d. If psychotic symptoms are evident, we may change Seroquel to Risperdal or increase the Seroquel. MAN Alexandr JI MD DR: ONEL/sarah JOB#: [id number] / [id number]
[2016-09-26 05:58] VITALS: BP 115/66
[2016-09-26] MEDS: CYCLOSPORINE 0.05% OPTH DROPERETTE. OU SCH ×2 (07:48→19:58)
[2016-09-26] MEDS: POLYVINYL ALCOHOL/POVIDONE/PF OPHTH SOLUTION DROPERETTE. OU SCH ×2 (07:48→19:58)
[2016-09-26] MEDS: RIVASTIGMINE 13.3MG PATCH. TD SCH (07:48)
[2016-09-26] MEDS: DULOXETINE HCL 30 MG CAPSULE.DR. PO SCH (07:48)
[2016-09-26] MEDS: FAMOTIDINE 20 MG TABLET PO SCH ×2 (07:49→19:58)
[2016-09-26] MEDS: CELECOXIB 200 MG CAPSULE PO SCH ×2 (07:49→19:58)
[2016-09-26] MEDS: CIPROFLOXACIN HCL 250 MG TABLET PO SCH ×2 (07:49→19:57)
[2016-09-26] MEDS: OLANZAPINE 2.5 MG TABLET PO SCH (07:49)
[2016-09-26] MEDS: DOCUSATE SODIUM 100 MG CAPSULE PO SCH ×2 (07:49→19:58)
[2016-09-26] MEDS: POLYETHYLENE GLYCOL 3350 17 GM PACKET. PO SCH (07:49)
[2016-09-26] MEDS: QUEtiapine 25 MG TABLET. PO SCH ×4 (07:49→19:58)
[2016-09-26] MEDS: CALCIUM POLYCARBOPHIL 625 MG TABLET PO SCH (07:49)
[2016-09-26] MEDS: SALIVA STIMULANT AGENT MOUTHWASH 237ML BOTTLE. PO SCH (07:50)
[2016-09-26] MEDS: FLUTICASONE 50MCG/NASAL SPRAY 16GM BOTTLE. NS SCH (07:51)
[2016-09-26] MEDS: LORAZEPAM 0.5 MG TABLET PO SCH ×3 (07:56→20:00)
[2016-09-26 16:12] VITALS: BP 118/52
[2016-09-26] MEDS: CHOLECALCIFEROL (VITAMIN D3) 1,000 UNIT TABLET PO SCH (16:35)
--- NOTE | 2016-09-27 05:34 | PN ---
DATE: 09/25/2016 This is a late entry for 09/25/2016 and covers elements not covered in my initial note. SUBJECTIVE: The patient remains somewhat anxious, repetitive about discharge plans and I processed this with her. Per the nursing report, the patient otherwise has been cooperative, somewhat anxious, obsessive. REVIEW OF SYSTEMS: Ambulation impaired, in a wheelchair. No CV, , pulmonary, eye system symptoms on review. MENTAL STATUS EXAM: Oriented reasonably. Speech coherent, abstraction fair, computation impaired, language function intact, attention span short. Mood and affect, intermittently somewhat anxious, labile. DIAGNOSES: Mentioned in my initial note. PLAN: Continue current psychotropics mentioned in my initial note. Adjust further as clinically indicated. MAN Alexandr JI MD DR: ONEL/sarah JOB#: [id number] / [id number]
[2016-09-27 06:31] VITALS: BP 153/78
[2016-09-27] MEDS: RIVASTIGMINE 13.3MG PATCH. TD SCH (07:39)
[2016-09-27] MEDS: CELECOXIB 200 MG CAPSULE PO SCH ×2 (07:40→19:58)
[2016-09-27] MEDS: POLYVINYL ALCOHOL/POVIDONE/PF OPHTH SOLUTION DROPERETTE. OU SCH ×2 (07:40→19:58)
[2016-09-27] MEDS: CALCIUM POLYCARBOPHIL 625 MG TABLET PO SCH (07:40)
[2016-09-27] MEDS: DULOXETINE HCL 30 MG CAPSULE.DR. PO SCH (07:40)
[2016-09-27] MEDS: QUEtiapine 25 MG TABLET. PO SCH ×4 (07:40→19:58)
[2016-09-27] MEDS: FAMOTIDINE 20 MG TABLET PO SCH ×2 (07:40→19:58)
[2016-09-27] MEDS: FUROSEMIDE 20 MG TABLET PO SCH (07:40)
[2016-09-27] MEDS: DOCUSATE SODIUM 100 MG CAPSULE PO SCH ×2 (07:40→19:58)
[2016-09-27] MEDS: CIPROFLOXACIN HCL 250 MG TABLET PO SCH ×2 (07:40→19:58)
[2016-09-27] MEDS: SALIVA STIMULANT AGENT MOUTHWASH 237ML BOTTLE. PO SCH (07:41)
[2016-09-27] MEDS: POLYETHYLENE GLYCOL 3350 17 GM PACKET. PO SCH (07:41)
[2016-09-27] MEDS: FLUTICASONE 50MCG/NASAL SPRAY 16GM BOTTLE. NS SCH (07:41)
[2016-09-27] MEDS: LORAZEPAM 0.5 MG TABLET PO SCH ×3 (07:43→20:02)
[2016-09-27] MEDS: CYCLOSPORINE 0.05% OPTH DROPERETTE. OU SCH ×2 (07:44→19:58)
[2016-09-27 08:22] LABS: BASO % 1 % (0-3); EOS # 0.2 x10^3/uL (0.0-0.7); EOS % 5 % (0-3); HEMATOCRIT 40.5 % (36.0-47.0); HEMOGLOBIN 13.3 g/dL (12.0-15.5); LYMPH # 1.5 x10^3/uL (1.0-4.8); LYMPH % 42 % (24-48); MEAN CORPUSCULAR HEMOGLOBIN 32 pg (25-35); MEAN CORPUSCULAR HGB CONC 33 g/dL (31-37); MEAN CORPUSCULAR VOLUME 97 fL (79-100); MONO # 0.3 x10^3/uL (0.0-1.1); MONO % 9 % (0-9); NEUT # 1.5 x10^3uL (1.8-7.7); NEUT % 43 % (31-73); PLATELET COUNT 203 x10^3/uL (140-400); RED BLOOD COUNT 4.19 x10^6/uL (3.50-5.40); RED CELL DISTRIBUTION WIDTH 13.7 % (11.5-14.5); WHITE BLOOD COUNT 3.5 x10^3/uL (4.0-11.0)
[2016-09-27 08:42] LABS: ALBUMIN 3.4 g/dL (3.4-5.0); CALCIUM 8.9 mg/dL (8.5-10.1); GFR 52.6; MAGNESIUM 2.4 mg/dL (1.8-2.4); POTASSIUM 4.3 mmol/L (3.5-5.1); TOTAL BILIRUBIN 0.3 mg/dL (0.2-1.0); TOTAL PROTEIN 6.8 g/dL (6.4-8.2)
[2016-09-27 15:25] VITALS: BP 102/63
[2016-09-27] MEDS: CHOLECALCIFEROL (VITAMIN D3) 1,000 UNIT TABLET PO SCH (17:03)
--- NOTE | 2016-09-27 20:46 | PDOC ---
Exam Rudolph Demential Exam: Rudolph Note: Please also refer to the separate dictated note~for this date of service dictated separately.~Patient seen individually. Discussed the patient with Nursing staff reviewed the chart.~Reviewed interim history and current functioning. Reviewed vital signs,~Labs/ Radiology~and current medications noted below. Continue current treatment with the changes noted in the dictated addendum note Assessment: Vital Signs: Vital Signs Date Time Temp Pulse Resp B/P Pulse Ox O2 Delivery O2 Flow Rate FiO2 09/27/16 15:25 97.9 77 20 102/63 97 09/27/16 06:31 Room Air I&O Intake and Output 09/27/16 07:00 Intake Total 600 ml Balance 600 ml Intake Oral 600 ml Labs: Laboratory Tests Test 09/27/16 07:45 White Blood Count 3.5x10^3/uL (4.0-11.0) L Red Blood Count 4.19x10^6/uL (3.50-5.40) Hemoglobin 13.3g/dL (12.0-15.5) Hematocrit 40.5% (36.0-47.0) Mean Corpuscular Volume 97fL (79-100) Mean Corpuscular Hemoglobin 32pg (25-35) Mean Corpuscular Hemoglobin Concent 33g/dL (31-37) Red Cell Distribution Width 13.7% (11.5-14.5) Platelet Count 203x10^3/uL (140-400) Neutrophils (%) (Auto) 43% (31-73) Lymphocytes (%) (Auto) 42% (24-48) Monocytes (%) (Auto) 9% (0-9) Eosinophils (%) (Auto) 5% (0-3) H Basophils (%) (Auto) 1% (0-3) Neutrophils # (Auto) 1.5x10^3uL (1.8-7.7) L Lymphocytes # (Auto) 1.5x10^3/uL (1.0-4.8) Monocytes # (Auto) 0.3x10^3/uL (0.0-1.1) Eosinophils # (Auto) 0.2x10^3/uL (0.0-0.7) Basophils # (Auto) 0.0x10^3/uL (0.0-0.2) Sodium Level 144mmol/L (136-145) Potassium Level 4.3mmol/L (3.5-5.1) Chloride Level 105mmol/L (98-107) Carbon Dioxide Level 32mmol/L (21-32) Anion Gap 7 (6-14) Blood Urea Nitrogen 18mg/dL (7-20) Creatinine 1.0mg/dL (0.6-1.0) Estimated GFR (Cockcroft-Gault) 52.6 BUN/Creatinine Ratio 18 (6-20) Glucose Level 97mg/dL (70-99) Calcium Level 8.9mg/dL (8.5-10.1) Magnesium Level 2.4mg/dL (1.8-2.4) Total Bilirubin 0.3mg/dL (0.2-1.0) Aspartate Amino Transferase (AST) 20U/L (15-37) Alanine Aminotransferase (ALT) 19U/L (14-59) Alkaline Phosphatase 92U/L (46-116) Total Protein 6.8g/dL (6.4-8.2) Albumin 3.4g/dL (3.4-5.0) Albumin/Globulin Ratio 1.0 (1.0-1.7) Current Medications: Meds: Current Medications Acetaminophen (Tylenol) 650 mg PRN Q6HRS PRN PO MILD PAIN / TEMP Last administered on 09/26/16 08:20; Start 09/21/16 at 20:45 Multi-Ingredient Ointment (Analgesic [place]) 1 alejandra PRN QID PRN TP MUSCLE PAIN; Start 09/21/16 at 20:45 Al Hydroxide/Mg Hydroxide (Mylanta Plus Xs) 15 ml PRN AFTMEALHC PRN PO DYSPEPSIA; Start 09/21/16 at 20:45 Magnesium Hydroxide (Milk Of Magnesia) 2,400 mg PRN QHS PRN PO CONSTIPATION Last administered on 09/24/16 14:22; Start 09/21/16 at 20:45 Duloxetine HCl (Cymbalta) 30 mg DAILY PO Last administered on 09/27/16 07:40; Start 09/22/16 at 09:00 Lorazepam (Ativan) 1 mg PRN DAILY PRN PO ANXIETY; Start 09/21/16 at 20:45 Lorazepam (Ativan) 1 mg TID PO Last administered on 09/22/16 14:46; Start at 21:00; Stop 09/22/16 at 18:35; Status DC Olanzapine (Zyprexa) 2.5 mg DAILY PO ; Start 09/22/16 at 09:00; Stop 09/22/16 at 09:00; Status DC Rivastigmine (Exelon) 1 patch DAILY TD ; Start 09/22/16 at 09:00; Stop 09/22/16 at 09:00; Status DC Bisacodyl (Dulcolax Tab) 10 mg PRN DAILY PRN PO CONSTIPATION; Start 09/21/16 at 21:00 Bisacodyl (Dulcolax Supp) 10 mg PRN DAILY PRN RC CONSTIPATION; Start 09/21/16 at 21:00 Calcium Polycarbophil (Fibercon) 625 mg DAILY PO Last administered on 07:40; Start 09/22/16 at 09:00 Celecoxib (Celebrex) 200 mg BID PO Last administered on 09/27/16 19:58; Start 09/21/16 at 21:00 Cyclosporine (Restasis) 1 drop BID OU Last administered on 09/27/16 19:58; Start 09/21/16 at 21:00 Docusate Sodium (Colace) 100 mg BID PO Last administered on 09/27/16 19:58; Start 09/21/16 at 21:00 Furosemide (Lasix) 20 mg Q3DAYS PO Last administered on 09/27/16 07:40; Start 09/24/16 at 09:00 Guaifenesin (Robitussin) 100 mg PRN Q6HRS PRN PO COUGH; Start 09/21/16 at 21:00 Albuterol Sulfate (Ventolin) 2.5 mg PRN Q4HRS PRN NEB SHORTNESS OF BREATH; Start 09/21/16 at 22:00 Nystatin (Mycostatin) 1 ml TID PO ; Start 09/21/16 at 21:00; Stop 09/21/16 at 23: 18; Status DC Polyethylene Glycol (miraLAX) 17 gm DAILY PO Last administered on 09/27/16 07: 41; Start 09/22/16 at 09:00 Artificial Tears (Refresh Classic) 1 drop BID OU Last administered on 19:58; Start 09/21/16 at 21:00 Saliva Substitute (Biotene Dry Mouth) 1 alejandra DAILY PO Last administered on 07:41; Start 09/22/16 at 09:00 Tramadol HCl (Ultram) 50 mg PRN QID PRN PO MODERATE PAIN; Start 09/21/16 at 21: 00; Stop 09/21/16 at 23:18; Status DC Non-Formulary Medication 1 sprays BID NS ; Start 09/21/16 at 21:00; Stop 09/21/16 at 21:48; Status DC Non-Formulary Medication 150 mg BID PO ; Start 09/21/16 at 21:00; Stop 09/21/16 at 21:48; Status DC Fluticasone Propionate (Flonase) 2 spray DAILY NS Last administered on 07:41; Start 09/22/16 at 09:00 Famotidine (Pepcid) 20 mg BID PO Last administered on 09/27/16 19:58; Start at 22:00 Nystatin (Mycostatin) 5 ml TID PO Last administered on 09/25/16 20:41; Start at 09:00; Stop 09/26/16 at 08:59; Status DC Olanzapine (Zyprexa) 2.5 mg DAILY PO Last administered on 09/26/16 07:49; Start 09/22/16 at 09:00; Stop 09/26/16 at 10:15; Status DC Rivastigmine (Exelon 13.3mg) 1 patch DAILY TD Last administered on 09/27/16 07 :39; Start 09/22/16 at 09:00 Ciprofloxacin (Cipro) 250 mg BID PO Last administered on 09/27/16 19:58; Start 09/22/16 at 21:00 Lorazepam (Ativan) 0.75 mg TID PO Last administered on 09/27/16 20:02; Start 09/22/16 at 21:00; Stop 09/27/16 at 21:00 Lorazepam (Ativan) 0.5 mg TID PO ; Start 09/28/16 at 09:00; Stop 10/03/16 at 21: 00 Lorazepam (Ativan) 0.25 mg TID PO ; Start 10/04/16 at 09:00 Quetiapine Fumarate (SEROquel) 12.5 mg BID92 PO Last administered on 09/26/16 07:49; Start 09/23/16 at 09:00; Stop 09/26/16 at 10:15; Status DC Fosfomycin Tromethamine (Monurol) 3 gm 1X ONCE PO ; Start 09/23/16 at 17:45; Stop 09/23/16 at 18:07; Status DC Quetiapine Fumarate (SEROquel) 12.5 mg QID PO Last administered on 09/27/16 19 :58; Start 09/26/16 at 13:00 Vitamin D (Vitamin D3) 2,000 unit DAILYBFRSUP PO Last administered on 17:03; Start 09/26/16 at 17:00 Active Scripts Active Reported Olanzapine 2.5 Mg Tablet 2.5 Mg PO DAILY EXELON 13.3mg/24hr (Rivastigmine) 1 Each Patch.td24 1 Patch TD DAILY Nystatin 100,000 Unit/1 Ml Oral.susp 5 Ml PO TID 4 Days Stop Date 09/25/16 Furosemide 20 Mg Tablet 20 Mg PO Q3DAYS Bisacodyl 5 Mg Tablet.dr 10 Mg PO PRN DAILY PRN Tramadol Hcl (Tramadol HCl) 50 Mg Tablet 50 Mg PO PRN BID PRN Biotene (Saliva Substitution Combo No.9) 1,000 Ml Mouthwash 30 Ml PO DAILY Guaifenesin 100 Mg/5 Ml Liquid 100 Mg PO PRN Q6HRS PRN Duoneb 0.5-3(2.5) Mg/3 Ml (Albuterol/Ipratropium) 3 Ml Ampul.neb 3 Ml NEB PRN Q4HRS PRN Ranitidine Hcl 150 Mg Capsule 150 Mg PO BID Refresh Classic Eye Drops (Polyvinyl Alcohol/Povidone/Pf) 1 Each Droperette 1 Drop OU BID Flonase Allergy Relief (Fluticasone Propionate) 9.9 Ml [place].susp 1 Sprays NS BID Celebrex (Celecoxib) 200 Mg Capsule 200 Mg PO BID Bisacodyl 10 Mg Supp.rect 10 Mg RC PRN DAILY PRN Acetaminophen 500 Mg Tablet 500 Mg PO PRN Q4HRS PRN Restasis (Cyclosporine) 1 Each Droperette 1 Drop EACHEYE BID Polyethylene Glycol 3350 17 Gm Powd.pack 17 Gm PO DAILY Fiber-Tabs (Calcium Polycarbophil) 625 Mg Tablet 625 Mg PO DAILY Cymbalta (Duloxetine Hcl) 30 Mg Capsule.dr 30 Mg PO DAILY 14 Days Stop Date 10/05/16 Lorazepam 1 Mg Tablet 1 Mg PO TID 12 Days Stop Date 10/03/16 Lorazepam 1 Mg Tablet 1 Mg PO DAILY PRN Docusate Sodium 100 Mg Capsule 100 Mg PO BID Diagnosis: Problems: (1) Schizoaffective disorder, chronic condition with acute exacerbation (2) Impulse control disorder (3) Bipolar affective, mixed, sev w/ psych (4) Anxiety disorder CRISTINO JI MD Sep 27, 2016 20:46
[2016-09-28 05:44] VITALS: BP 136/76
[2016-09-28] MEDS: DOCUSATE SODIUM 100 MG CAPSULE PO SCH ×2 (08:18→19:24)
[2016-09-28] MEDS: POLYETHYLENE GLYCOL 3350 17 GM PACKET. PO SCH (08:18)
[2016-09-28] MEDS: DULOXETINE HCL 30 MG CAPSULE.DR. PO SCH (08:18)
[2016-09-28] MEDS: CELECOXIB 200 MG CAPSULE PO SCH ×2 (08:18→19:24)
[2016-09-28] MEDS: RIVASTIGMINE 13.3MG PATCH. TD SCH (08:18)
[2016-09-28] MEDS: CIPROFLOXACIN HCL 250 MG TABLET PO SCH ×2 (08:18→19:25)
[2016-09-28] MEDS: POLYVINYL ALCOHOL/POVIDONE/PF OPHTH SOLUTION DROPERETTE. OU SCH ×2 (08:18→19:25)
[2016-09-28] MEDS: FAMOTIDINE 20 MG TABLET PO SCH ×2 (08:18→19:24)
[2016-09-28] MEDS: SALIVA STIMULANT AGENT MOUTHWASH 237ML BOTTLE. PO SCH (08:18)
[2016-09-28] MEDS: CYCLOSPORINE 0.05% OPTH DROPERETTE. OU SCH ×2 (08:18→19:25)
[2016-09-28] MEDS: CALCIUM POLYCARBOPHIL 625 MG TABLET PO SCH (08:18)
[2016-09-28] MEDS: QUEtiapine 25 MG TABLET. PO SCH ×4 (08:18→19:25)
[2016-09-28] MEDS: FLUTICASONE 50MCG/NASAL SPRAY 16GM BOTTLE. NS SCH (08:19)
[2016-09-28] MEDS: LORAZEPAM 0.5 MG TABLET PO SCH ×3 (08:24→19:24)
[2016-09-28 15:15] VITALS: BP 106/65
[2016-09-28] MEDS: CHOLECALCIFEROL (VITAMIN D3) 1,000 UNIT TABLET PO SCH (17:27)
--- NOTE | 2016-09-28 17:37 | PN ---
DATE: 09/26/2016 PSYCHIATRIC PROGRESS NOTE This is a late entry 09/26/2016. SUBJECTIVE: Temperature 97.7, BP 115/66, pulse 75. The patient was staffed at lengthy treatment team meeting with the entire team and the patient's friend who is her DPOA and the friend's attended the conference. Reportedly, the friend's is the vocational rehabilitation administrator of the [facility] the patient resides at and patient . We reviewed carefully her past history, but this is not evident for bipolar disorder. The patient is obsessive, repetitive wanting to get back to [facility]. No clear family history of bipolar disorder. Her primary care physician, Dr. Parry has been treating her on Ativan and her DPOA indicated Dr. Parry felt the patient may have bipolar disorder. The patient gets confused, thinks she is here for rehab. Vitamin D was started. REVIEW OF SYSTEMS: Ambulation impaired in a wheelchair. No CV, , pulmonary, eye system symptoms on review. MENTAL STATUS EXAM: Reasonably oriented. Speech coherent, abstraction fair, computation impaired, language function intact. Mood and affect, lability is improved. LABORATORY DATA: Reviewed. 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 PLAN: Stop Zyprexa 2.5 mg daily, increase Seroquel from 12.5 mg twice a day to 12.5 mg 4 times a day. Continue Cymbalta 30 mg a day, Exelon patch 13.3 mg a day, Ativan is being tapered. Adjust further as clinically indicated. MAN Alexandr JI MD DR: ONEL/sarah JOB#: [id number] / [id number]
--- NOTE | 2016-09-28 18:19 | PDOC ---
Exam Rudolph Demential Exam: Rudolph Note: Please also refer to the separate dictated note~for this date of service dictated separately.~Patient seen individually. Discussed the patient with Nursing staff reviewed the chart.~Reviewed interim history and current functioning. Reviewed vital signs,~Labs/ Radiology~and current medications noted below. Continue current treatment with the changes noted in the dictated addendum note Assessment: Vital Signs: Vital Signs Date Time Temp Pulse Resp B/P Pulse Ox O2 Delivery O2 Flow Rate FiO2 09/28/16 15:15 97.6 82 20 106/65 94 Room Air I&O Intake and Output 09/28/16 07:00 Intake Total 1080 ml Balance 1080 ml Intake Oral 1080 ml Current Medications: Meds: Current Medications Acetaminophen (Tylenol) 650 mg PRN Q6HRS PRN PO MILD PAIN / TEMP Last administered on 09/26/16 08:20; Start 09/21/16 at 20:45 Multi-Ingredient Ointment (Analgesic [place]) 1 alejandra PRN QID PRN TP MUSCLE PAIN; Start 09/21/16 at 20:45 Al Hydroxide/Mg Hydroxide (Mylanta Plus Xs) 15 ml PRN AFTMEALHC PRN PO DYSPEPSIA; Start 09/21/16 at 20:45 Magnesium Hydroxide (Milk Of Magnesia) 2,400 mg PRN QHS PRN PO CONSTIPATION Last administered on 09/24/16 14:22; Start 09/21/16 at 20:45 Duloxetine HCl (Cymbalta) 30 mg DAILY PO Last administered on 09/28/16 08:18; Start 09/22/16 at 09:00 Lorazepam (Ativan) 1 mg PRN DAILY PRN PO ANXIETY; Start 09/21/16 at 20:45 Lorazepam (Ativan) 1 mg TID PO Last administered on 09/22/16 14:46; Start at 21:00; Stop 09/22/16 at 18:35; Status DC Olanzapine (Zyprexa) 2.5 mg DAILY PO ; Start 09/22/16 at 09:00; Stop 09/22/16 at 09:00; Status DC Rivastigmine (Exelon) 1 patch DAILY TD ; Start 09/22/16 at 09:00; Stop 09/22/16 at 09:00; Status DC Bisacodyl (Dulcolax Tab) 10 mg PRN DAILY PRN PO CONSTIPATION; Start 09/21/16 at 21:00 Bisacodyl (Dulcolax Supp) 10 mg PRN DAILY PRN RC CONSTIPATION; Start 09/21/16 at 21:00 Calcium Polycarbophil (Fibercon) 625 mg DAILY PO Last administered on 08:18; Start 09/22/16 at 09:00 Celecoxib (Celebrex) 200 mg BID PO Last administered on 09/28/16 08:18; Start 09/21/16 at 21:00 Cyclosporine (Restasis) 1 drop BID OU Last administered on 09/28/16 08:18; Start 09/21/16 at 21:00 Docusate Sodium (Colace) 100 mg BID PO Last administered on 09/28/16 08:18; Start 09/21/16 at 21:00 Furosemide (Lasix) 20 mg Q3DAYS PO Last administered on 09/27/16 07:40; Start 09/24/16 at 09:00 Guaifenesin (Robitussin) 100 mg PRN Q6HRS PRN PO COUGH; Start 09/21/16 at 21:00 Albuterol Sulfate (Ventolin) 2.5 mg PRN Q4HRS PRN NEB SHORTNESS OF BREATH; Start 09/21/16 at 22:00 Nystatin (Mycostatin) 1 ml TID PO ; Start 09/21/16 at 21:00; Stop 09/21/16 at 23: 18; Status DC Polyethylene Glycol (miraLAX) 17 gm DAILY PO Last administered on 09/28/16 08: 18; Start 09/22/16 at 09:00 Artificial Tears (Refresh Classic) 1 drop BID OU Last administered on 08:18; Start 09/21/16 at 21:00 Saliva Substitute (Biotene Dry Mouth) 1 alejandra DAILY PO Last administered on 08:18; Start 09/22/16 at 09:00 Tramadol HCl (Ultram) 50 mg PRN QID PRN PO MODERATE PAIN; Start 09/21/16 at 21: 00; Stop 09/21/16 at 23:18; Status DC Non-Formulary Medication 1 sprays BID NS ; Start 09/21/16 at 21:00; Stop 09/21/16 at 21:48; Status DC Non-Formulary Medication 150 mg BID PO ; Start 09/21/16 at 21:00; Stop 09/21/16 at 21:48; Status DC Fluticasone Propionate (Flonase) 2 spray DAILY NS Last administered on 08:19; Start 09/22/16 at 09:00 Famotidine (Pepcid) 20 mg BID PO Last administered on 09/28/16 08:18; Start at 22:00 Nystatin (Mycostatin) 5 ml TID PO Last administered on 09/25/16 20:41; Start at 09:00; Stop 09/26/16 at 08:59; Status DC Olanzapine (Zyprexa) 2.5 mg DAILY PO Last administered on 09/26/16 07:49; Start 09/22/16 at 09:00; Stop 09/26/16 at 10:15; Status DC Rivastigmine (Exelon 13.3mg) 1 patch DAILY TD Last administered on 09/28/16 08 :18; Start 09/22/16 at 09:00 Ciprofloxacin (Cipro) 250 mg BID PO Last administered on 09/28/16 08:18; Start 09/22/16 at 21:00 Lorazepam (Ativan) 0.75 mg TID PO Last administered on 09/27/16 20:02; Start 09/22/16 at 21:00; Stop 09/27/16 at 21:00; Status DC Lorazepam (Ativan) 0.5 mg TID PO Last administered on 09/28/16 13:34; Start at 09:00; Stop 10/03/16 at 21:00 Lorazepam (Ativan) 0.25 mg TID PO ; Start 10/04/16 at 09:00 Quetiapine Fumarate (SEROquel) 12.5 mg BID92 PO Last administered on 09/26/16 07:49; Start 09/23/16 at 09:00; Stop 09/26/16 at 10:15; Status DC Fosfomycin Tromethamine (Monurol) 3 gm 1X ONCE PO ; Start 09/23/16 at 17:45; Stop 09/23/16 at 18:07; Status DC Quetiapine Fumarate (SEROquel) 12.5 mg QID PO Last administered on 09/28/16t 17 :27; Start 09/26/16 at 13:00 Vitamin D (Vitamin D3) 2,000 unit DAILYBFRSUP PO Last administered on t 17:27; Start 09/26/16 at 17:00 Active Scripts Active Reported Olanzapine 2.5 Mg Tablet 2.5 Mg PO DAILY EXELON 13.3mg/24hr (Rivastigmine) 1 Each Patch.td24 1 Patch TD DAILY Nystatin 100,000 Unit/1 Ml Oral.susp 5 Ml PO TID 4 Days Stop Date 09/25/16 Furosemide 20 Mg Tablet 20 Mg PO Q3DAYS Bisacodyl 5 Mg Tablet.dr 10 Mg PO PRN DAILY PRN Tramadol Hcl (Tramadol HCl) 50 Mg Tablet 50 Mg PO PRN BID PRN Biotene (Saliva Substitution Combo No.9) 1,000 Ml Mouthwash 30 Ml PO DAILY Guaifenesin 100 Mg/5 Ml Liquid 100 Mg PO PRN Q6HRS PRN Duoneb 0.5-3(2.5) Mg/3 Ml (Albuterol/Ipratropium) 3 Ml Ampul.neb 3 Ml NEB PRN Q4HRS PRN Ranitidine Hcl 150 Mg Capsule 150 Mg PO BID Refresh Classic Eye Drops (Polyvinyl Alcohol/Povidone/Pf) 1 Each Droperette 1 Drop OU BID Flonase Allergy Relief (Fluticasone Propionate) 9.9 Ml [place].susp 1 Sprays NS BID Celebrex (Celecoxib) 200 Mg Capsule 200 Mg PO BID Bisacodyl 10 Mg Supp.rect 10 Mg RC PRN DAILY PRN Acetaminophen 500 Mg Tablet 500 Mg PO PRN Q4HRS PRN Restasis (Cyclosporine) 1 Each Droperette 1 Drop EACHEYE BID Polyethylene Glycol 3350 17 Gm Powd.pack 17 Gm PO DAILY Fiber-Tabs (Calcium Polycarbophil) 625 Mg Tablet 625 Mg PO DAILY Cymbalta (Duloxetine Hcl) 30 Mg Capsule.dr 30 Mg PO DAILY 14 Days Stop Date 10/05/16 Lorazepam 1 Mg Tablet 1 Mg PO TID 12 Days Stop Date 10/03/16 Lorazepam 1 Mg Tablet 1 Mg PO DAILY PRN Docusate Sodium 100 Mg Capsule 100 Mg PO BID Diagnosis: Problems: (1) Schizoaffective disorder, chronic condition with acute exacerbation (2) Impulse control disorder (3) Bipolar affective, mixed, sev w/ psych (4) Anxiety disorder CRISTINO JI MD Sep 28, 2016 18:19
[2016-09-29 05:48] VITALS: BP 150/73
[2016-09-29] MEDS: QUEtiapine 25 MG TABLET. PO SCH ×4 (07:38→20:10)
[2016-09-29] MEDS: POLYETHYLENE GLYCOL 3350 17 GM PACKET. PO SCH (07:38)
[2016-09-29] MEDS: SALIVA STIMULANT AGENT MOUTHWASH 237ML BOTTLE. PO SCH (07:38)
[2016-09-29] MEDS: FLUTICASONE 50MCG/NASAL SPRAY 16GM BOTTLE. NS SCH (07:38)
[2016-09-29] MEDS: RIVASTIGMINE 13.3MG PATCH. TD SCH (07:38)
[2016-09-29] MEDS: DOCUSATE SODIUM 100 MG CAPSULE PO SCH ×2 (07:39→20:10)
[2016-09-29] MEDS: CIPROFLOXACIN HCL 250 MG TABLET PO SCH ×2 (07:39→20:10)
[2016-09-29] MEDS: CYCLOSPORINE 0.05% OPTH DROPERETTE. OU SCH ×2 (07:39→20:09)
[2016-09-29] MEDS: POLYVINYL ALCOHOL/POVIDONE/PF OPHTH SOLUTION DROPERETTE. OU SCH ×2 (07:39→20:10)
[2016-09-29] MEDS: FAMOTIDINE 20 MG TABLET PO SCH ×2 (07:39→20:13)
[2016-09-29] MEDS: DULOXETINE HCL 30 MG CAPSULE.DR. PO SCH (07:39)
[2016-09-29] MEDS: CALCIUM POLYCARBOPHIL 625 MG TABLET PO SCH (07:39)
[2016-09-29] MEDS: CELECOXIB 200 MG CAPSULE PO SCH ×2 (07:39→20:13)
[2016-09-29] MEDS: LORAZEPAM 0.5 MG TABLET PO SCH ×3 (07:40→20:10)
--- NOTE | 2016-09-29 09:35 | PDOC ---
Exam Rudolph Demential Exam: Rudolph Note: Please also refer to the separate dictated note~for this date of service dictated separately.~Patient seen individually. Discussed the patient with Nursing staff reviewed the chart.~Reviewed interim history and current functioning. Reviewed vital signs,~Labs/ Radiology~and current medications noted below. Continue current treatment with the changes noted in the dictated addendum note Assessment: Vital Signs: Vital Signs Date Time Temp Pulse Resp B/P Pulse Ox O2 Delivery O2 Flow Rate FiO2 09/29/16 05:48 98.4 82 22 150/73 96 09/28/16 15:15 Room Air I&O Intake and Output 09/29/16 07:00 Intake Total 1200 ml Balance 1200 ml Intake Oral 1200 ml # Voids 2 # Bowel Movements 2 Current Medications: Meds: Current Medications Acetaminophen (Tylenol) 650 mg PRN Q6HRS PRN PO MILD PAIN / TEMP Last administered on 09/26/16 08:20; Start 09/21/16 at 20:45 Multi-Ingredient Ointment (Analgesic [place]) 1 alejandra PRN QID PRN TP MUSCLE PAIN; Start 09/21/16 at 20:45 Al Hydroxide/Mg Hydroxide (Mylanta Plus Xs) 15 ml PRN AFTMEALHC PRN PO DYSPEPSIA; Start 09/21/16 at 20:45 Magnesium Hydroxide (Milk Of Magnesia) 2,400 mg PRN QHS PRN PO CONSTIPATION Last administered on 09/24/16 14:22; Start 09/21/16 at 20:45 Duloxetine HCl (Cymbalta) 30 mg DAILY PO Last administered on 09/29/16 07:39; Start 09/22/16 at 09:00 Lorazepam (Ativan) 1 mg PRN DAILY PRN PO ANXIETY; Start 09/21/16 at 20:45 Lorazepam (Ativan) 1 mg TID PO Last administered on 09/22/16 14:46; Start at 21:00; Stop 09/22/16 at 18:35; Status DC Olanzapine (Zyprexa) 2.5 mg DAILY PO ; Start 09/22/16 at 09:00; Stop 09/22/16 at 09:00; Status DC Rivastigmine (Exelon) 1 patch DAILY TD ; Start 09/22/16 at 09:00; Stop 09/22/16 at 09:00; Status DC Bisacodyl (Dulcolax Tab) 10 mg PRN DAILY PRN PO CONSTIPATION; Start 09/21/16 at 21:00 Bisacodyl (Dulcolax Supp) 10 mg PRN DAILY PRN RC CONSTIPATION; Start 09/21/16 at 21:00 Calcium Polycarbophil (Fibercon) 625 mg DAILY PO Last administered on 07:39; Start 09/22/16 at 09:00 Celecoxib (Celebrex) 200 mg BID PO Last administered on 09/29/16 07:39; Start 09/21/16 at 21:00 Cyclosporine (Restasis) 1 drop BID OU Last administered on 09/29/16 07:39; Start 09/21/16 at 21:00 Docusate Sodium (Colace) 100 mg BID PO Last administered on 09/29/16 07:39; Start 09/21/16 at 21:00 Furosemide (Lasix) 20 mg Q3DAYS PO Last administered on 09/27/16 07:40; Start 09/24/16 at 09:00 Guaifenesin (Robitussin) 100 mg PRN Q6HRS PRN PO COUGH; Start 09/21/16 at 21:00 Albuterol Sulfate (Ventolin) 2.5 mg PRN Q4HRS PRN NEB SHORTNESS OF BREATH; Start 09/21/16 at 22:00 Nystatin (Mycostatin) 1 ml TID PO ; Start 09/21/16 at 21:00; Stop 09/21/16 at 23: 18; Status DC Polyethylene Glycol (miraLAX) 17 gm DAILY PO Last administered on 09/29/16 07: 38; Start 09/22/16 at 09:00 Artificial Tears (Refresh Classic) 1 drop BID OU Last administered on 07:39; Start 09/21/16 at 21:00 Saliva Substitute (Biotene Dry Mouth) 1 alejandra DAILY PO Last administered on 07:38; Start 09/22/16 at 09:00 Tramadol HCl (Ultram) 50 mg PRN QID PRN PO MODERATE PAIN; Start 09/21/16 at 21: 00; Stop 09/21/16 at 23:18; Status DC Non-Formulary Medication 1 sprays BID NS ; Start 09/21/16 at 21:00; Stop 09/21/16 at 21:48; Status DC Non-Formulary Medication 150 mg BID PO ; Start 09/21/16 at 21:00; Stop 09/21/16 at 21:48; Status DC Fluticasone Propionate (Flonase) 2 spray DAILY NS Last administered on 07:38; Start 09/22/16 at 09:00 Famotidine (Pepcid) 20 mg BID PO Last administered on 09/29/16 07:39; Start at 22:00 Nystatin (Mycostatin) 5 ml TID PO Last administered on 09/25/16 20:41; Start at 09:00; Stop 09/26/16 at 08:59; Status DC Olanzapine (Zyprexa) 2.5 mg DAILY PO Last administered on 09/26/16 07:49; Start 09/22/16 at 09:00; Stop 09/26/16 at 10:15; Status DC Rivastigmine (Exelon 13.3mg) 1 patch DAILY TD Last administered on 09/29/16 07 :38; Start 09/22/16 at 09:00 Ciprofloxacin (Cipro) 250 mg BID PO Last administered on 09/29/16 07:39; Start 09/22/16 at 21:00 Lorazepam (Ativan) 0.75 mg TID PO Last administered on 09/27/16 20:02; Start 09/22/16 at 21:00; Stop 09/27/16 at 21:00; Status DC Lorazepam (Ativan) 0.5 mg TID PO Last administered on 09/29/16 07:40; Start at 09:00; Stop 10/03/16 at 21:00 Lorazepam (Ativan) 0.25 mg TID PO ; Start 10/04/16 at 09:00 Quetiapine Fumarate (SEROquel) 12.5 mg BID92 PO Last administered on 09/26/16 07:49; Start 09/23/16 at 09:00; Stop 09/26/16 at 10:15; Status DC Fosfomycin Tromethamine (Monurol) 3 gm 1X ONCE PO ; Start 09/23/16 at 17:45; Stop 09/23/16 at 18:07; Status DC Quetiapine Fumarate (SEROquel) 12.5 mg QID PO Last administered on 09/29/16 07 :38; Start 09/26/16 at 13:00 Vitamin D (Vitamin D3) 2,000 unit DAILYBFRSUP PO Last administered on 17:27; Start 09/26/16 at 17:00 Active Scripts Active Reported Olanzapine 2.5 Mg Tablet 2.5 Mg PO DAILY EXELON 13.3mg/24hr (Rivastigmine) 1 Each Patch.td24 1 Patch TD DAILY Nystatin 100,000 Unit/1 Ml Oral.susp 5 Ml PO TID 4 Days Stop Date 09/25/16 Furosemide 20 Mg Tablet 20 Mg PO Q3DAYS Bisacodyl 5 Mg Tablet.dr 10 Mg PO PRN DAILY PRN Tramadol Hcl (Tramadol HCl) 50 Mg Tablet 50 Mg PO PRN BID PRN Biotene (Saliva Substitution Combo No.9) 1,000 Ml Mouthwash 30 Ml PO DAILY Guaifenesin 100 Mg/5 Ml Liquid 100 Mg PO PRN Q6HRS PRN Duoneb 0.5-3(2.5) Mg/3 Ml (Albuterol/Ipratropium) 3 Ml Ampul.neb 3 Ml NEB PRN Q4HRS PRN Ranitidine Hcl 150 Mg Capsule 150 Mg PO BID Refresh Classic Eye Drops (Polyvinyl Alcohol/Povidone/Pf) 1 Each [place]perette 1 Drop OU BID Flonase Allergy Relief (Fluticasone Propionate) 9.9 Ml [place].susp 1 Sprays NS BID Celebrex (Celecoxib) 200 Mg Capsule 200 Mg PO BID Bisacodyl 10 Mg Supp.rect 10 Mg RC PRN DAILY PRN Acetaminophen 500 Mg Tablet 500 Mg PO PRN Q4HRS PRN Restasis (Cyclosporine) 1 Each [place] 1 Drop EACHEYE BID Polyethylene Glycol 3350 17 Gm Powd.pack 17 Gm PO DAILY Fiber-Tabs (Calcium Polycarbophil) 625 Mg Tablet 625 Mg PO DAILY Cymbalta (Duloxetine Hcl) 30 Mg Capsule.dr 30 Mg PO DAILY 14 Days Stop Date 10/05/16 Lorazepam 1 Mg Tablet 1 Mg PO TID 12 Days Stop Date 3/16/17 Lorazepam 1 Mg Tablet 1 Mg PO DAILY PRN Docusate Sodium 100 Mg Capsule 100 Mg PO BID Diagnosis: Problems: (1) Anxiety disorder (2) Bipolar affective, mixed, sev w/ psych (3) Impulse control disorder (4) Schizoaffective disorder, chronic condition with acute exacerbation CRISTINO JI MD Sep 29, 2016 09:35
--- NOTE | 2016-09-29 09:49 | PN ---
DATE: 09/27/2016 This is a late entry for 09/27/2016, covers elements not covered in my initial note. SUBJECTIVE: Per nursing report, the patient was tired in the morning, somewhat drowsy, was cooperative with therapy, was delusional the previous night that someone was stealing things from her. REVIEW OF SYSTEMS: Ambulation impaired, in her wheelchair. No CV, , pulmonary, eye system symptoms on review. MENTAL STATUS EXAM: Reasonably oriented. Speech coherent, abstraction fair, computation impaired, language function intact. Mood and affect showing improvement. LABORATORY DATA: Reviewed. IMPRESSION: Bipolar 1, mixed with psychotic features; anxiety disorder, unspecified; cognitive disorder, unspecified. PLAN: Continue current psychotropics. Adjust further as clinically indicated. MAN Alexandr JI MD DR: ONEL/sarah JOB#: [id number] / [id number]
--- NOTE | 2016-09-29 09:50 | PN ---
DATE: 09/28/2016 SUBJECTIVE: The patient was seen on rounds the evening of 09/28/2016. This note covers elements not covered in my initial note. Per nursing report, the patient has been more cooperative on the unit. Mood is improved, less agitated, and less paranoid. REVIEW OF SYSTEMS: Ambulation impaired, in a wheelchair. No CV, , pulmonary, eye system symptoms on review. MENTAL STATUS EXAM: Reasonably oriented. Speech coherent, abstraction fair, computation impaired, language function intact. Mood and affect, lability is improved. IMPRESSION: Unchanged from initial note. PLAN: Continue Exelon patch, Cymbalta, together with Ativan, which is being tapered; Seroquel 12.5 four times a day. Adjust further as clinically indicated. MAN Alexandr JI MD DR: ONEL/sarah JOB#: [id number] / [id number]
[2016-09-29 16:21] VITALS: BP 114/68
[2016-09-29] MEDS: CHOLECALCIFEROL (VITAMIN D3) 1,000 UNIT TABLET PO SCH (17:22)
[2016-09-30] MEDS: OLANZAPINE ZYDIS 5 MG TAB.RAPDIS PO PRN (05:51)
[2016-09-30 06:51] VITALS: BP 115/75
[2016-09-30] MEDS: SALIVA STIMULANT AGENT MOUTHWASH 237ML BOTTLE. PO SCH (09:00)
[2016-09-30] MEDS: FLUTICASONE 50MCG/NASAL SPRAY 16GM BOTTLE. NS SCH (09:00)
[2016-09-30] MEDS: CYCLOSPORINE 0.05% OPTH DROPERETTE. OU SCH ×2 (10:37→19:50)
[2016-09-30] MEDS: POLYVINYL ALCOHOL/POVIDONE/PF OPHTH SOLUTION DROPERETTE. OU SCH ×2 (10:37→19:50)
[2016-09-30] MEDS: CALCIUM POLYCARBOPHIL 625 MG TABLET PO SCH (10:37)
[2016-09-30] MEDS: RIVASTIGMINE 13.3MG PATCH. TD SCH (10:37)
[2016-09-30] MEDS: CELECOXIB 200 MG CAPSULE PO SCH ×2 (10:37→19:50)
[2016-09-30] MEDS: POLYETHYLENE GLYCOL 3350 17 GM PACKET. PO SCH (10:37)
[2016-09-30] MEDS: DOCUSATE SODIUM 100 MG CAPSULE PO SCH ×2 (10:38→19:50)
[2016-09-30] MEDS: LORAZEPAM 0.5 MG TABLET PO SCH ×3 (10:38→19:51)
[2016-09-30] MEDS: CIPROFLOXACIN HCL 250 MG TABLET PO SCH (10:38)
[2016-09-30] MEDS: FAMOTIDINE 20 MG TABLET PO SCH ×2 (10:39→19:50)
[2016-09-30] MEDS: DULOXETINE HCL 30 MG CAPSULE.DR. PO SCH (10:39)
[2016-09-30] MEDS: FUROSEMIDE 20 MG TABLET PO SCH (10:39)
[2016-09-30] MEDS: QUEtiapine 25 MG TABLET. PO SCH ×4 (10:39→19:50)
[2016-09-30 16:38] VITALS: BP 109/72
[2016-09-30] MEDS: CHOLECALCIFEROL (VITAMIN D3) 1,000 UNIT TABLET PO SCH (17:00)
--- NOTE | 2016-09-30 21:23 | PDOC ---
Exam Rudolph Demential Exam: Rudolph Note: Please also refer to the separate dictated note~for this date of service dictated separately.~Patient seen individually. Discussed the patient with Nursing staff reviewed the chart.~Reviewed interim history and current functioning. Reviewed vital signs,~Labs/ Radiology~and current medications noted below. Continue current treatment with the changes noted in the dictated addendum note Assessment: Vital Signs: Vital Signs Date Time Temp Pulse Resp B/P Pulse Ox O2 Delivery O2 Flow Rate FiO2 09/30/16 16:38 97.8 76 18 109/72 95 Room Air I&O Intake and Output 09/30/16 07:00 Intake Total 1205 ml Balance 1205 ml Intake Oral 1205 ml # Voids 1 # Bowel Movements 1 Current Medications: Meds: Current Medications Acetaminophen (Tylenol) 650 mg PRN Q6HRS PRN PO MILD PAIN / TEMP Last administered on 09/26/16 08:20; Start 09/21/16 at 20:45 Multi-Ingredient Ointment (Analgesic [place]) 1 alejandra PRN QID PRN TP MUSCLE PAIN; Start 09/21/16 at 20:45 Al Hydroxide/Mg Hydroxide (Mylanta Plus Xs) 15 ml PRN AFTMEALHC PRN PO DYSPEPSIA; Start 09/21/16 at 20:45 Magnesium Hydroxide (Milk Of Magnesia) 2,400 mg PRN QHS PRN PO CONSTIPATION Last administered on 09/24/16 14:22; Start 09/21/16 at 20:45 Duloxetine HCl (Cymbalta) 30 mg DAILY PO Last administered on 09/30/16 10:39; Start 09/22/16 at 09:00 Lorazepam (Ativan) 1 mg PRN DAILY PRN PO ANXIETY Last administered on 23:20; Start 09/21/16 at 20:45 Lorazepam (Ativan) 1 mg TID PO Last administered on 09/22/16 14:46; Start at 21:00; Stop 09/22/16 at 18:35; Status DC Olanzapine (Zyprexa) 2.5 mg DAILY PO ; Start 09/22/16 at 09:00; Stop 09/22/16 at 09:00; Status DC Rivastigmine (Exelon) 1 patch DAILY TD ; Start 09/22/16 at 09:00; Stop 09/22/16 at 09:00; Status DC Bisacodyl (Dulcolax Tab) 10 mg PRN DAILY PRN PO CONSTIPATION; Start 09/21/16 at 21:00 Bisacodyl (Dulcolax Supp) 10 mg PRN DAILY PRN RC CONSTIPATION; Start 09/21/16 at 21:00 Calcium Polycarbophil (Fibercon) 625 mg DAILY PO Last administered on 10:37; Start 09/22/16 at 09:00 Celecoxib (Celebrex) 200 mg BID PO Last administered on 09/30/16 19:50; Start 09/21/16 at 21:00 Cyclosporine (Restasis) 1 drop BID OU Last administered on 09/30/16 19:50; Start 09/21/16 at 21:00 Docusate Sodium (Colace) 100 mg BID PO Last administered on 09/30/16 19:50; Start 09/21/16 at 21:00 Furosemide (Lasix) 20 mg Q3DAYS PO Last administered on 09/30/16 10:39; Start 09/24/16 at 09:00 Guaifenesin (Robitussin) 100 mg PRN Q6HRS PRN PO COUGH; Start 09/21/16 at 21:00 Albuterol Sulfate (Ventolin) 2.5 mg PRN Q4HRS PRN NEB SHORTNESS OF BREATH; Start 09/21/16 at 22:00 Nystatin (Mycostatin) 1 ml TID PO ; Start 09/21/16 at 21:00; Stop 09/21/16 at 23: 18; Status DC Polyethylene Glycol (miraLAX) 17 gm DAILY PO Last administered on 09/30/16 10: 37; Start 09/22/16 at 09:00 Artificial Tears (Refresh Classic) 1 drop BID OU Last administered on 19:50; Start 09/21/16 at 21:00 Saliva Substitute (Biotene Dry Mouth) 1 alejandra DAILY PO Last administered on 09:00; Start 09/22/16 at 09:00 Tramadol HCl (Ultram) 50 mg PRN QID PRN PO MODERATE PAIN; Start 09/21/16 at 21: 00; Stop 09/21/16 at 23:18; Status DC Non-Formulary Medication 1 sprays BID NS ; Start 09/21/16 at 21:00; Stop 09/21/16 at 21:48; Status DC Non-Formulary Medication 150 mg BID PO ; Start 09/21/16 at 21:00; Stop 09/21/16 at 21:48; Status DC Fluticasone Propionate (Flonase) 2 spray DAILY NS Last administered on 09:00; Start 09/22/16 at 09:00 Famotidine (Pepcid) 20 mg BID PO Last administered on 09/30/16 19:50; Start at 22:00 Nystatin (Mycostatin) 5 ml TID PO Last administered on 09/25/16 20:41; Start at 09:00; Stop 09/26/16 at 08:59; Status DC Olanzapine (Zyprexa) 2.5 mg DAILY PO Last administered on 09/26/16 07:49; Start 09/22/16 at 09:00; Stop 09/26/16 at 10:15; Status DC Rivastigmine (Exelon 13.3mg) 1 patch DAILY TD Last administered on 09/30/16 10 :37; Start 09/22/16 at 09:00 Ciprofloxacin (Cipro) 250 mg BID PO Last administered on 09/30/16 10:38; Start 09/22/16 at 21:00; Stop 09/30/16 at 14:45; Status DC Lorazepam (Ativan) 0.75 mg TID PO Last administered on 09/27/16 20:02; Start 09/22/16 at 21:00; Stop 09/27/16 at 21:00; Status DC Lorazepam (Ativan) 0.5 mg TID PO Last administered on 09/30/16 19:51; Start at 09:00; Stop 10/03/16 at 21:00 Lorazepam (Ativan) 0.25 mg TID PO ; Start 10/04/16 at 09:00 Quetiapine Fumarate (SEROquel) 12.5 mg BID92 PO Last administered on 09/26/16 07:49; Start 09/23/16 at 09:00; Stop 09/26/16 at 10:15; Status DC Fosfomycin Tromethamine (Monurol) 3 gm 1X ONCE PO ; Start 09/23/16 at 17:45; Stop 09/23/16 at 18:07; Status DC Quetiapine Fumarate (SEROquel) 12.5 mg QID PO Last administered on 09/30/16 19 :50; Start 09/26/16 at 13:00 Vitamin D (Vitamin D3) 2,000 unit DAILYBFRSUP PO Last administered on 17:00; Start 09/26/16 at 17:00 Olanzapine (Zyprexa Zydis) 2.5 mg PRN Q2HR PRN PO AGITATION Last administered on 09/30/16 05:51; Start 09/30/16 at 05:45 Active Scripts Active Reported Olanzapine 2.5 Mg Tablet 2.5 Mg PO DAILY EXELON 13.3mg/24hr (Rivastigmine) 1 Each Patch.td24 1 Patch TD DAILY Nystatin 100,000 Unit/1 Ml Oral.susp 5 Ml PO TID 4 Days Stop Date 09/25/16 Furosemide 20 Mg Tablet 20 Mg PO Q3DAYS Bisacodyl 5 Mg Tablet.dr 10 Mg PO PRN DAILY PRN Tramadol Hcl (Tramadol HCl) 50 Mg Tablet 50 Mg PO PRN BID PRN Biotene (Saliva Substitution Combo No.9) 1,000 Ml Mouthwash 30 Ml PO DAILY Guaifenesin 100 Mg/5 Ml Liquid 100 Mg PO PRN Q6HRS PRN Duoneb 0.5-3(2.5) Mg/3 Ml (Albuterol/Ipratropium) 3 Ml Ampul.neb 3 Ml NEB PRN Q4HRS PRN Ranitidine Hcl 150 Mg Capsule 150 Mg PO BID Refresh Classic Eye Drops (Polyvinyl Alcohol/Povidone/Pf) 1 Each Droperette 1 Drop OU BID Flonase Allergy Relief (Fluticasone Propionate) 9.9 Ml [place].susp 1 Sprays NS BID Celebrex (Celecoxib) 200 Mg Capsule 200 Mg PO BID Bisacodyl 10 Mg Supp.rect 10 Mg RC PRN DAILY PRN Acetaminophen 500 Mg Tablet 500 Mg PO PRN Q4HRS PRN Restasis (Cyclosporine) 1 Each Droperette 1 Drop EACHEYE BID Polyethylene Glycol 3350 17 Gm Powd.pack 17 Gm PO DAILY Fiber-Tabs (Calcium Polycarbophil) 625 Mg Tablet 625 Mg PO DAILY Cymbalta (Duloxetine Hcl) 30 Mg Capsule.dr 30 Mg PO DAILY 14 Days Stop Date 10/05/16 Lorazepam 1 Mg Tablet 1 Mg PO TID 12 Days Stop Date 10/03/16 Lorazepam 1 Mg Tablet 1 Mg PO DAILY PRN Docusate Sodium 100 Mg Capsule 100 Mg PO BID Diagnosis: Problems: (1) Anxiety disorder (2) Bipolar affective, mixed, sev w/ psych (3) Impulse control disorder (4) Schizoaffective disorder, chronic condition with acute exacerbation CRISTINO JI MD Sep 30, 2016 21:23
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
[2016-10-01 05:49] VITALS: BP 103/59
[2016-10-01] MEDS: POLYVINYL ALCOHOL/POVIDONE/PF OPHTH SOLUTION DROPERETTE. OU SCH ×2 (09:00→19:28)
[2016-10-01] MEDS: RIVASTIGMINE 13.3MG PATCH. TD SCH (09:08)
[2016-10-01] MEDS: DULOXETINE HCL 30 MG CAPSULE.DR. PO SCH (09:08)
[2016-10-01] MEDS: QUEtiapine 25 MG TABLET. PO SCH ×4 (09:09→19:29)
[2016-10-01] MEDS: FAMOTIDINE 20 MG TABLET PO SCH ×2 (09:09→19:29)
[2016-10-01] MEDS: CELECOXIB 200 MG CAPSULE PO SCH ×2 (09:09→19:28)
[2016-10-01] MEDS: CALCIUM POLYCARBOPHIL 625 MG TABLET PO SCH (09:09)
[2016-10-01] MEDS: DOCUSATE SODIUM 100 MG CAPSULE PO SCH ×2 (09:10→19:28)
[2016-10-01] MEDS: LORAZEPAM 0.5 MG TABLET PO SCH ×3 (09:10→19:34)
[2016-10-01] MEDS: POLYETHYLENE GLYCOL 3350 17 GM PACKET. PO SCH (09:11)
[2016-10-01] MEDS: CYCLOSPORINE 0.05% OPTH DROPERETTE. OU SCH ×2 (09:11→19:35)
[2016-10-01] MEDS: FLUTICASONE 50MCG/NASAL SPRAY 16GM BOTTLE. NS SCH (09:12)
[2016-10-01] MEDS: SALIVA STIMULANT AGENT MOUTHWASH 237ML BOTTLE. PO SCH (09:12)
[2016-10-01 15:49] VITALS: BP 112/72
[2016-10-01] MEDS: CHOLECALCIFEROL (VITAMIN D3) 1,000 UNIT TABLET PO SCH (16:38)
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
--- NOTE | 2016-10-01 21:09 | PDOC ---
Exam Rudolph Demential Exam: Rudolph Note: Please also refer to the separate dictated note~for this date of service dictated separately.~Patient seen individually. Discussed the patient with Nursing staff reviewed the chart.~Reviewed interim history and current functioning. Reviewed vital signs,~Labs/ Radiology~and current medications noted below. Continue current treatment with the changes noted in the dictated addendum note Assessment: Vital Signs: Vital Signs Date Time Temp Pulse Resp B/P Pulse Ox O2 Delivery O2 Flow Rate FiO2 10/01/16 15:49 97.8 68 20 112/72 98 10/01/16 05:49 Nasal Cannula 2.0 I&O Intake and Output 10/01/16 07:00 Intake Total 1020 ml Balance 1020 ml Intake Oral 1020 ml # Bowel Movements 1 Current Medications: Meds: Current Medications Acetaminophen (Tylenol) 650 mg PRN Q6HRS PRN PO MILD PAIN / TEMP Last administered on 09/26/16 08:20; Start 09/21/16 at 20:45 Multi-Ingredient Ointment (Analgesic [place]) 1 alejandra PRN QID PRN TP MUSCLE PAIN; Start 09/21/16 at 20:45 Al Hydroxide/Mg Hydroxide (Mylanta Plus Xs) 15 ml PRN AFTMEALHC PRN PO DYSPEPSIA; Start 09/21/16 at 20:45 Magnesium Hydroxide (Milk Of Magnesia) 2,400 mg PRN QHS PRN PO CONSTIPATION Last administered on 09/24/16 14:22; Start 09/21/16 at 20:45 Duloxetine HCl (Cymbalta) 30 mg DAILY PO Last administered on 10/01/16 09:08; Start 09/22/16 at 09:00 Lorazepam (Ativan) 1 mg PRN DAILY PRN PO ANXIETY Last administered on 23:20; Start 09/21/16 at 20:45 Lorazepam (Ativan) 1 mg TID PO Last administered on 09/22/16 14:46; Start at 21:00; Stop 09/22/16 at 18:35; Status DC Olanzapine (Zyprexa) 2.5 mg DAILY PO ; Start 09/22/16 at 09:00; Stop 09/22/16 at 09:00; Status DC Rivastigmine (Exelon) 1 patch DAILY TD ; Start 09/22/16 at 09:00; Stop 09/22/16 at 09:00; Status DC Bisacodyl (Dulcolax Tab) 10 mg PRN DAILY PRN PO CONSTIPATION; Start 09/21/16 at 21:00 Bisacodyl (Dulcolax Supp) 10 mg PRN DAILY PRN RC CONSTIPATION; Start 09/21/16 at 21:00 Calcium Polycarbophil (Fibercon) 625 mg DAILY PO Last administered on 09:09; Start 09/22/16 at 09:00 Celecoxib (Celebrex) 200 mg BID PO Last administered on 10/01/16 19:28; Start 09/21/16 at 21:00 Cyclosporine (Restasis) 1 drop BID OU Last administered on 10/01/16 19:35; Start 09/21/16 at 21:00 Docusate Sodium (Colace) 100 mg BID PO Last administered on 10/01/16 19:28; Start 09/21/16 at 21:00 Furosemide (Lasix) 20 mg Q3DAYS PO Last administered on 09/30/16 10:39; Start 09/24/16 at 09:00 Guaifenesin (Robitussin) 100 mg PRN Q6HRS PRN PO COUGH; Start 09/21/16 at 21:00 Albuterol Sulfate (Ventolin) 2.5 mg PRN Q4HRS PRN NEB SHORTNESS OF BREATH; Start 09/21/16 at 22:00 Nystatin (Mycostatin) 1 ml TID PO ; Start 09/21/16 at 21:00; Stop 09/21/16 at 23: 18; Status DC Polyethylene Glycol (miraLAX) 17 gm DAILY PO Last administered on 10/01/16 09: 11; Start 09/22/16 at 09:00 Artificial Tears (Refresh Classic) 1 drop BID OU Last administered on 19:28; Start 09/21/16 at 21:00 Saliva Substitute (Biotene Dry Mouth) 1 alejandra DAILY PO Last administered on 09:12; Start 09/22/16 at 09:00 Tramadol HCl (Ultram) 50 mg PRN QID PRN PO MODERATE PAIN; Start 09/21/16 at 21: 00; Stop 09/21/16 at 23:18; Status DC Non-Formulary Medication 1 sprays BID NS ; Start 09/21/16 at 21:00; Stop 09/21/16 at 21:48; Status DC Non-Formulary Medication 150 mg BID PO ; Start 09/21/16 at 21:00; Stop 09/21/16 at 21:48; Status DC Fluticasone Propionate (Flonase) 2 spray DAILY NS Last administered on 09:12; Start 09/22/16 at 09:00 Famotidine (Pepcid) 20 mg BID PO Last administered on 10/01/16 19:29; Start at 22:00 Nystatin (Mycostatin) 5 ml TID PO Last administered on 09/25/16 20:41; Start at 09:00; Stop 09/26/16 at 08:59; Status DC Olanzapine (Zyprexa) 2.5 mg DAILY PO Last administered on 09/26/16 07:49; Start 09/22/16 at 09:00; Stop 09/26/16 at 10:15; Status DC Rivastigmine (Exelon 13.3mg) 1 patch DAILY TD Last administered on 10/01/16 09 :08; Start 09/22/16 at 09:00 Ciprofloxacin (Cipro) 250 mg BID PO Last administered on 09/30/16 10:38; Start 09/22/16 at 21:00; Stop 09/30/16 at 14:45; Status DC Lorazepam (Ativan) 0.75 mg TID PO Last administered on 09/27/16 20:02; Start 09/22/16 at 21:00; Stop 09/27/16 at 21:00; Status DC Lorazepam (Ativan) 0.5 mg TID PO Last administered on 10/01/16 19:34; Start at 09:00; Stop 10/03/16 at 21:00 Lorazepam (Ativan) 0.25 mg TID PO ; Start 10/04/16 at 09:00 Quetiapine Fumarate (SEROquel) 12.5 mg BID92 PO Last administered on 09/26/16 07:49; Start 09/23/16 at 09:00; Stop 09/26/16 at 10:15; Status DC Fosfomycin Tromethamine (Monurol) 3 gm 1X ONCE PO ; Start 09/23/16 at 17:45; Stop 09/23/16 at 18:07; Status DC Quetiapine Fumarate (SEROquel) 12.5 mg QID PO Last administered on 10/01/16 19 :29; Start 09/26/16 at 13:00 Vitamin D (Vitamin D3) 2,000 unit DAILYBFRSUP PO Last administered on 16:38; Start 09/26/16 at 17:00 Olanzapine (Zyprexa Zydis) 2.5 mg PRN Q2HR PRN PO AGITATION Last administered on 09/30/16 05:51; Start 09/30/16 at 05:45 Active Scripts Active Reported Olanzapine 2.5 Mg Tablet 2.5 Mg PO DAILY EXELON 13.3mg/24hr (Rivastigmine) 1 Each Patch.td24 1 Patch TD DAILY Nystatin 100,000 Unit/1 Ml Oral.susp 5 Ml PO TID 4 Days Stop Date 09/25/16 Furosemide 20 Mg Tablet 20 Mg PO Q3DAYS Bisacodyl 5 Mg Tablet.dr 10 Mg PO PRN DAILY PRN Tramadol Hcl (Tramadol HCl) 50 Mg Tablet 50 Mg PO PRN BID PRN Biotene (Saliva Substitution Combo No.9) 1,000 Ml Mouthwash 30 Ml PO DAILY Guaifenesin 100 Mg/5 Ml Liquid 100 Mg PO PRN Q6HRS PRN Duoneb 0.5-3(2.5) Mg/3 Ml (Albuterol/Ipratropium) 3 Ml Ampul.neb 3 Ml NEB PRN Q4HRS PRN Ranitidine Hcl 150 Mg Capsule 150 Mg PO BID Refresh Classic Eye Drops (Polyvinyl Alcohol/Povidone/Pf) 1 Each Droperette 1 Drop OU BID Flonase Allergy Relief (Fluticasone Propionate) 9.9 Ml [place].susp 1 Sprays NS BID Celebrex (Celecoxib) 200 Mg Capsule 200 Mg PO BID Bisacodyl 10 Mg Supp.rect 10 Mg RC PRN DAILY PRN Acetaminophen 500 Mg Tablet 500 Mg PO PRN Q4HRS PRN Restasis (Cyclosporine) 1 Each Droperette 1 Drop EACHEYE BID Polyethylene Glycol 3350 17 Gm Powd.pack 17 Gm PO DAILY Fiber-Tabs (Calcium Polycarbophil) 625 Mg Tablet 625 Mg PO DAILY Cymbalta (Duloxetine Hcl) 30 Mg Capsule.dr 30 Mg PO DAILY 14 Days Stop Date 10/05/16 Lorazepam 1 Mg Tablet 1 Mg PO TID 12 Days Stop Date 10/03/16 Lorazepam 1 Mg Tablet 1 Mg PO DAILY PRN Docusate Sodium 100 Mg Capsule 100 Mg PO BID Diagnosis: Problems: (1) Anxiety disorder (2) Bipolar affective, mixed, sev w/ psych (3) Impulse control disorder (4) Schizoaffective disorder, chronic condition with acute exacerbation CRISTINO JI MD Oct 01, 2016 21:09
[2016-10-02 05:54] VITALS: BP 105/65
[2016-10-02] MEDS: POLYETHYLENE GLYCOL 3350 17 GM PACKET. PO SCH (09:52)
[2016-10-02] MEDS: FLUTICASONE 50MCG/NASAL SPRAY 16GM BOTTLE. NS SCH (09:52)
[2016-10-02] MEDS: POLYVINYL ALCOHOL/POVIDONE/PF OPHTH SOLUTION DROPERETTE. OU SCH ×2 (09:52→19:40)
[2016-10-02] MEDS: CYCLOSPORINE 0.05% OPTH DROPERETTE. OU SCH ×2 (09:52→19:40)
[2016-10-02] MEDS: DOCUSATE SODIUM 100 MG CAPSULE PO SCH ×2 (09:53→19:39)
[2016-10-02] MEDS: CALCIUM POLYCARBOPHIL 625 MG TABLET PO SCH (09:53)
[2016-10-02] MEDS: QUEtiapine 25 MG TABLET. PO SCH ×4 (09:53→19:39)
[2016-10-02] MEDS: RIVASTIGMINE 13.3MG PATCH. TD SCH (09:53)
[2016-10-02] MEDS: FAMOTIDINE 20 MG TABLET PO SCH ×2 (09:53→19:40)
[2016-10-02] MEDS: DULOXETINE HCL 30 MG CAPSULE.DR. PO SCH (09:54)
[2016-10-02] MEDS: LORAZEPAM 0.5 MG TABLET PO SCH ×3 (09:54→19:42)
[2016-10-02] MEDS: SALIVA STIMULANT AGENT MOUTHWASH 237ML BOTTLE. PO SCH (09:55)
[2016-10-02] MEDS: CELECOXIB 200 MG CAPSULE PO SCH ×2 (09:55→19:39)
[2016-10-02 15:43] VITALS: BP 117/71
[2016-10-02] MEDS: CHOLECALCIFEROL (VITAMIN D3) 1,000 UNIT TABLET PO SCH (17:05)
--- NOTE | 2016-10-02 22:03 | PDOC ---
Exam Rudolph Demential Exam: Rudolph Note: Please also refer to the separate dictated note~for this date of service dictated separately.~Patient seen individually. Discussed the patient with Nursing staff reviewed the chart.~Reviewed interim history and current functioning. Reviewed vital signs,~Labs/ Radiology~and current medications noted below. Continue current treatment with the changes noted in the dictated addendum note Assessment: Vital Signs: Vital Signs Date Time Temp Pulse Resp B/P Pulse Ox O2 Delivery O2 Flow Rate FiO2 10/02/16 15:43 97.3 73 20 117/71 97 Room Air 10/01/16 05:49 2.0 I&O Intake and Output 10/02/16 07:00 Intake Total 960 ml Balance 960 ml Intake Oral 960 ml # Bowel Movements 2 Current Medications: Meds: Current Medications Acetaminophen (Tylenol) 650 mg PRN Q6HRS PRN PO MILD PAIN / TEMP Last administered on 09/26/16 08:20; Start 09/21/16 at 20:45 Multi-Ingredient Ointment (Analgesic [place]) 1 alejandra PRN QID PRN TP MUSCLE PAIN; Start 09/21/16 at 20:45 Al Hydroxide/Mg Hydroxide (Mylanta Plus Xs) 15 ml PRN AFTMEALHC PRN PO DYSPEPSIA; Start 09/21/16 at 20:45 Magnesium Hydroxide (Milk Of Magnesia) 2,400 mg PRN QHS PRN PO CONSTIPATION Last administered on 09/24/16 14:22; Start 09/21/16 at 20:45 Duloxetine HCl (Cymbalta) 30 mg DAILY PO Last administered on 10/02/16 09:54; Start 09/22/16 at 09:00 Lorazepam (Ativan) 1 mg PRN DAILY PRN PO ANXIETY Last administered on 23:20; Start 09/21/16 at 20:45 Lorazepam (Ativan) 1 mg TID PO Last administered on 09/22/16 14:46; Start at 21:00; Stop 09/22/16 at 18:35; Status DC Olanzapine (Zyprexa) 2.5 mg DAILY PO ; Start 09/22/16 at 09:00; Stop 09/22/16 at 09:00; Status DC Rivastigmine (Exelon) 1 patch DAILY TD ; Start 09/22/16 at 09:00; Stop 09/22/16 at 09:00; Status DC Bisacodyl (Dulcolax Tab) 10 mg PRN DAILY PRN PO CONSTIPATION; Start 09/21/16 at 21:00 Bisacodyl (Dulcolax Supp) 10 mg PRN DAILY PRN RC CONSTIPATION; Start 09/21/16 at 21:00 Calcium Polycarbophil (Fibercon) 625 mg DAILY PO Last administered on 09:53; Start 09/22/16 at 09:00 Celecoxib (Celebrex) 200 mg BID PO Last administered on 10/02/16 19:39; Start 09/21/16 at 21:00 Cyclosporine (Restasis) 1 drop BID OU Last administered on 10/02/16 19:40; Start 09/21/16 at 21:00 Docusate Sodium (Colace) 100 mg BID PO Last administered on 10/02/16 19:39; Start 09/21/16 at 21:00 Furosemide (Lasix) 20 mg Q3DAYS PO Last administered on 09/30/16 10:39; Start 09/24/16 at 09:00 Guaifenesin (Robitussin) 100 mg PRN Q6HRS PRN PO COUGH; Start 09/21/16 at 21:00 Albuterol Sulfate (Ventolin) 2.5 mg PRN Q4HRS PRN NEB SHORTNESS OF BREATH; Start 09/21/16 at 22:00 Nystatin (Mycostatin) 1 ml TID PO ; Start 09/21/16 at 21:00; Stop 09/21/16 at 23: 18; Status DC Polyethylene Glycol (miraLAX) 17 gm DAILY PO Last administered on 10/02/16 09: 52; Start 09/22/16 at 09:00 Artificial Tears (Refresh Classic) 1 drop BID OU Last administered on 19:40; Start 09/21/16 at 21:00 Saliva Substitute (Biotene Dry Mouth) 1 alejandra DAILY PO Last administered on 09:55; Start 09/22/16 at 09:00 Tramadol HCl (Ultram) 50 mg PRN QID PRN PO MODERATE PAIN; Start 09/21/16 at 21: 00; Stop 09/21/16 at 23:18; Status DC Non-Formulary Medication 1 sprays BID NS ; Start 09/21/16 at 21:00; Stop 09/21/16 at 21:48; Status DC Non-Formulary Medication 150 mg BID PO ; Start 09/21/16 at 21:00; Stop 09/21/16 at 21:48; Status DC Fluticasone Propionate (Flonase) 2 spray DAILY NS Last administered on 09:52; Start 09/22/16 at 09:00 Famotidine (Pepcid) 20 mg BID PO Last administered on 10/02/16 19:40; Start at 22:00 Nystatin (Mycostatin) 5 ml TID PO Last administered on 09/25/16 20:41; Start at 09:00; Stop 09/26/16 at 08:59; Status DC Olanzapine (Zyprexa) 2.5 mg DAILY PO Last administered on 09/26/16 07:49; Start 09/22/16 at 09:00; Stop 09/26/16 at 10:15; Status DC Rivastigmine (Exelon 13.3mg) 1 patch DAILY TD Last administered on 10/02/16 09 :53; Start 09/22/16 at 09:00 Ciprofloxacin (Cipro) 250 mg BID PO Last administered on 09/30/16 10:38; Start 09/22/16 at 21:00; Stop 09/30/16 at 14:45; Status DC Lorazepam (Ativan) 0.75 mg TID PO Last administered on 09/27/16 20:02; Start 09/22/16 at 21:00; Stop 09/27/16 at 21:00; Status DC Lorazepam (Ativan) 0.5 mg TID PO Last administered on 10/02/16 19:42; Start at 09:00; Stop 10/03/16 at 21:00 Lorazepam (Ativan) 0.25 mg TID PO ; Start 10/04/16 at 09:00 Quetiapine Fumarate (SEROquel) 12.5 mg BID92 PO Last administered on 09/26/16 07:49; Start 09/23/16 at 09:00; Stop 09/26/16 at 10:15; Status DC Fosfomycin Tromethamine (Monurol) 3 gm 1X ONCE PO ; Start 09/23/16 at 17:45; Stop 09/23/16 at 18:07; Status DC Quetiapine Fumarate (SEROquel) 12.5 mg QID PO Last administered on 10/02/16 19 :39; Start 09/26/16 at 13:00 Vitamin D (Vitamin D3) 2,000 unit DAILYBFRSUP PO Last administered on 17:05; Start 09/26/16 at 17:00 Olanzapine (Zyprexa Zydis) 2.5 mg PRN Q2HR PRN PO AGITATION Last administered on 09/30/16 05:51; Start 09/30/16 at 05:45 Active Scripts Active Reported Olanzapine 2.5 Mg Tablet 2.5 Mg PO DAILY EXELON 13.3mg/24hr (Rivastigmine) 1 Each Patch.td24 1 Patch TD DAILY Nystatin 100,000 Unit/1 Ml Oral.susp 5 Ml PO TID 4 Days Stop Date 09/25/16 Furosemide 20 Mg Tablet 20 Mg PO Q3DAYS Bisacodyl 5 Mg Tablet.dr 10 Mg PO PRN DAILY PRN Tramadol Hcl (Tramadol HCl) 50 Mg Tablet 50 Mg PO PRN BID PRN Biotene (Saliva Substitution Combo No.9) 1,000 Ml Mouthwash 30 Ml PO DAILY Guaifenesin 100 Mg/5 Ml Liquid 100 Mg PO PRN Q6HRS PRN Duoneb 0.5-3(2.5) Mg/3 Ml (Albuterol/Ipratropium) 3 Ml Ampul.neb 3 Ml NEB PRN Q4HRS PRN Ranitidine Hcl 150 Mg Capsule 150 Mg PO BID Refresh Classic Eye Drops (Polyvinyl Alcohol/Povidone/Pf) 1 Each Droperette 1 Drop OU BID Flonase Allergy Relief (Fluticasone Propionate) 9.9 Ml [place].susp 1 Sprays NS BID Celebrex (Celecoxib) 200 Mg Capsule 200 Mg PO BID Bisacodyl 10 Mg Supp.rect 10 Mg RC PRN DAILY PRN Acetaminophen 500 Mg Tablet 500 Mg PO PRN Q4HRS PRN Restasis (Cyclosporine) 1 Each Droperette 1 Drop EACHEYE BID Polyethylene Glycol 3350 17 Gm Powd.pack 17 Gm PO DAILY Fiber-Tabs (Calcium Polycarbophil) 625 Mg Tablet 625 Mg PO DAILY Cymbalta (Duloxetine Hcl) 30 Mg Capsule.dr 30 Mg PO DAILY 14 Days Stop Date 10/05/16 Lorazepam 1 Mg Tablet 1 Mg PO TID 12 Days Stop Date 10/03/16 Lorazepam 1 Mg Tablet 1 Mg PO DAILY PRN Docusate Sodium 100 Mg Capsule 100 Mg PO BID Diagnosis: Problems: (1) Schizoaffective disorder, chronic condition with acute exacerbation (2) Impulse control disorder (3) Bipolar affective, mixed, sev w/ psych (4) Anxiety disorder CRISTINO JI MD Oct 02, 2016 22:03
--- NOTE | 2016-10-02 23:11 | PN ---
DATE: 10/01/2016 This late entry 10/01/2016 covers elements not covered in my initial note. SUBJECTIVE: Per nursing report, the patient has done better during the day on 10/01/2016. She remains somewhat anxious, a little labile, but redirectable. REVIEW OF SYSTEMS: Ambulation impaired, in a wheelchair. No CV, , pulmonary, eye system symptoms on review. MENTAL STATUS EXAM: Oriented to herself and situation. Speech coherent, little pressured at times. Abstraction fair, computation impaired, language function intact. Mood and affect, lability is improved. LABORATORY DATA: Reviewed. IMPRESSION: Schizoaffective disorder, bipolar type versus bipolar 1 disorder, unspecified; anxiety disorder, unspecified. History of major depressive disorder with psychotic features. PLAN: Continue current psychotropics mentioned in my initial note. May need to increase Seroquel if mood lability resurfaces. MAN Alexandr JI MD DR: ONEL/sarah JOB#: [id number] / [id number]
[2016-10-03 05:39] VITALS: BP 128/90
[2016-10-03] MEDS: CALCIUM POLYCARBOPHIL 625 MG TABLET PO SCH (08:27)
[2016-10-03] MEDS: CYCLOSPORINE 0.05% OPTH DROPERETTE. OU SCH ×2 (08:27→19:35)
[2016-10-03] MEDS: FAMOTIDINE 20 MG TABLET PO SCH ×2 (08:27→19:35)
[2016-10-03] MEDS: FUROSEMIDE 20 MG TABLET PO SCH (08:27)
[2016-10-03] MEDS: POLYVINYL ALCOHOL/POVIDONE/PF OPHTH SOLUTION DROPERETTE. OU SCH ×2 (08:27→19:35)
[2016-10-03] MEDS: CELECOXIB 200 MG CAPSULE PO SCH ×2 (08:27→19:35)
[2016-10-03] MEDS: DOCUSATE SODIUM 100 MG CAPSULE PO SCH ×2 (08:27→19:35)
[2016-10-03] MEDS: POLYETHYLENE GLYCOL 3350 17 GM PACKET. PO SCH (08:27)
[2016-10-03] MEDS: DULOXETINE HCL 30 MG CAPSULE.DR. PO SCH (08:27)
[2016-10-03] MEDS: FLUTICASONE 50MCG/NASAL SPRAY 16GM BOTTLE. NS SCH (08:28)
[2016-10-03] MEDS: RIVASTIGMINE 13.3MG PATCH. TD SCH (08:28)
[2016-10-03] MEDS: SALIVA STIMULANT AGENT MOUTHWASH 237ML BOTTLE. PO SCH (08:30)
[2016-10-03] MEDS: LORAZEPAM 0.5 MG TABLET PO SCH ×3 (08:30→19:35)
[2016-10-03] MEDS: QUEtiapine 25 MG TABLET. PO SCH ×4 (08:30→19:35)
[2016-10-03 15:37] VITALS: BP 117/74
[2016-10-03] MEDS: CHOLECALCIFEROL (VITAMIN D3) 1,000 UNIT TABLET PO SCH (17:39)
--- NOTE | 2016-10-03 21:09 | PDOC ---
Exam Rudolph Demential Exam: Rudolph Note: Please also refer to the separate dictated note~for this date of service dictated separately.~Patient seen individually. Discussed the patient with Nursing staff reviewed the chart.~Reviewed interim history and current functioning. Reviewed vital signs,~Labs/ Radiology~and current medications noted below. Continue current treatment with the changes noted in the dictated addendum note Assessment: Vital Signs: Vital Signs Date Time Temp Pulse Resp B/P Pulse Ox O2 Delivery O2 Flow Rate FiO2 10/03/16 15:37 97.9 78 20 117/74 94 10/02/16 15:43 Room Air 10/01/16 05:49 2.0 I&O Intake and Output 10/03/16 07:00 Intake Total 1080 ml Balance 1080 ml Intake Oral 1080 ml # Bowel Movements 1 Current Medications: Meds: Current Medications Acetaminophen (Tylenol) 650 mg PRN Q6HRS PRN PO MILD PAIN / TEMP Last administered on 09/26/16 08:20; Start 09/21/16 at 20:45 Multi-Ingredient Ointment (Analgesic [place]) 1 alejandra PRN QID PRN TP MUSCLE PAIN; Start 09/21/16 at 20:45 Al Hydroxide/Mg Hydroxide (Mylanta Plus Xs) 15 ml PRN AFTMEALHC PRN PO DYSPEPSIA; Start 09/21/16 at 20:45 Magnesium Hydroxide (Milk Of Magnesia) 2,400 mg PRN QHS PRN PO CONSTIPATION Last administered on 09/24/16 14:22; Start 09/21/16 at 20:45 Duloxetine HCl (Cymbalta) 30 mg DAILY PO Last administered on 10/03/16 08:27; Start 09/22/16 at 09:00 Lorazepam (Ativan) 1 mg PRN DAILY PRN PO ANXIETY Last administered on 23:20; Start 09/21/16 at 20:45 Lorazepam (Ativan) 1 mg TID PO Last administered on 09/22/16 14:46; Start at 21:00; Stop 09/22/16 at 18:35; Status DC Olanzapine (Zyprexa) 2.5 mg DAILY PO ; Start 09/22/16 at 09:00; Stop 09/22/16 at 09:00; Status DC Rivastigmine (Exelon) 1 patch DAILY TD ; Start 09/22/16 at 09:00; Stop 09/22/16 at 09:00; Status DC Bisacodyl (Dulcolax Tab) 10 mg PRN DAILY PRN PO CONSTIPATION; Start 09/21/16 at 21:00 Bisacodyl (Dulcolax Supp) 10 mg PRN DAILY PRN RC CONSTIPATION; Start 09/21/16 at 21:00 Calcium Polycarbophil (Fibercon) 625 mg DAILY PO Last administered on 08:27; Start 09/22/16 at 09:00 Celecoxib (Celebrex) 200 mg BID PO Last administered on 10/03/16 19:35; Start 09/21/16 at 21:00 Cyclosporine (Restasis) 1 drop BID OU Last administered on 10/03/16 19:35; Start 09/21/16 at 21:00 Docusate Sodium (Colace) 100 mg BID PO Last administered on 10/03/16 19:35; Start 09/21/16 at 21:00 Furosemide (Lasix) 20 mg Q3DAYS PO Last administered on 10/03/16 08:27; Start 09/24/16 at 09:00 Guaifenesin (Robitussin) 100 mg PRN Q6HRS PRN PO COUGH; Start 09/21/16 at 21:00 Albuterol Sulfate (Ventolin) 2.5 mg PRN Q4HRS PRN NEB SHORTNESS OF BREATH; Start 09/21/16 at 22:00 Nystatin (Mycostatin) 1 ml TID PO ; Start 09/21/16 at 21:00; Stop 09/21/16 at 23: 18; Status DC Polyethylene Glycol (miraLAX) 17 gm DAILY PO Last administered on 10/03/16 08: 27; Start 09/22/16 at 09:00 Artificial Tears (Refresh Classic) 1 drop BID OU Last administered on 19:35; Start 09/21/16 at 21:00 Saliva Substitute (Biotene Dry Mouth) 1 alejandra DAILY PO Last administered on 08:30; Start 09/22/16 at 09:00 Tramadol HCl (Ultram) 50 mg PRN QID PRN PO MODERATE PAIN; Start 09/21/16 at 21: 00; Stop 09/21/16 at 23:18; Status DC Non-Formulary Medication 1 sprays BID NS ; Start 09/21/16 at 21:00; Stop 09/21/16 at 21:48; Status DC Non-Formulary Medication 150 mg BID PO ; Start 09/21/16 at 21:00; Stop 09/21/16 at 21:48; Status DC Fluticasone Propionate (Flonase) 2 spray DAILY NS Last administered on 08:28; Start 09/22/16 at 09:00 Famotidine (Pepcid) 20 mg BID PO Last administered on 10/03/16 19:35; Start at 22:00 Nystatin (Mycostatin) 5 ml TID PO Last administered on 09/25/16 20:41; Start at 09:00; Stop 09/26/16 at 08:59; Status DC Olanzapine (Zyprexa) 2.5 mg DAILY PO Last administered on 09/26/16 07:49; Start 09/22/16 at 09:00; Stop 09/26/16 at 10:15; Status DC Rivastigmine (Exelon 13.3mg) 1 patch DAILY TD Last administered on 10/03/16 08 :28; Start 09/22/16 at 09:00 Ciprofloxacin (Cipro) 250 mg BID PO Last administered on 09/30/16 10:38; Start 09/22/16 at 21:00; Stop 09/30/16 at 14:45; Status DC Lorazepam (Ativan) 0.75 mg TID PO Last administered on 09/27/16 20:02; Start 09/22/16 at 21:00; Stop 09/27/16 at 21:00; Status DC Lorazepam (Ativan) 0.5 mg TID PO Last administered on 10/03/16 19:35; Start at 09:00; Stop 10/03/16 at 21:00; Status DC Lorazepam (Ativan) 0.25 mg TID PO ; Start 10/04/16 at 09:00 Quetiapine Fumarate (SEROquel) 12.5 mg BID92 PO Last administered on 09/26/16 07:49; Start 09/23/16 at 09:00; Stop 09/26/16 at 10:15; Status DC Fosfomycin Tromethamine (Monurol) 3 gm 1X ONCE PO ; Start 09/23/16 at 17:45; Stop 09/23/16 at 18:07; Status DC Quetiapine Fumarate (SEROquel) 12.5 mg QID PO Last administered on 10/03/16 19 :35; Start 09/26/16 at 13:00 Vitamin D (Vitamin D3) 2,000 unit DAILYBFRSUP PO Last administered on 17:39; Start 09/26/16 at 17:00 Olanzapine (Zyprexa Zydis) 2.5 mg PRN Q2HR PRN PO AGITATION Last administered on 09/30/16 05:51; Start 09/30/16 at 05:45 Active Scripts Active Reported Olanzapine 2.5 Mg Tablet 2.5 Mg PO DAILY EXELON 13.3mg/24hr (Rivastigmine) 1 Each Patch.td24 1 Patch TD DAILY Nystatin 100,000 Unit/1 Ml Oral.susp 5 Ml PO TID 4 Days Stop Date 09/25/16 Furosemide 20 Mg Tablet 20 Mg PO Q3DAYS Bisacodyl 5 Mg Tablet.dr 10 Mg PO PRN DAILY PRN Tramadol Hcl (Tramadol HCl) 50 Mg Tablet 50 Mg PO PRN BID PRN Biotene (Saliva Substitution Combo No.9) 1,000 Ml Mouthwash 30 Ml PO DAILY Guaifenesin 100 Mg/5 Ml Liquid 100 Mg PO PRN Q6HRS PRN Duoneb 0.5-3(2.5) Mg/3 Ml (Albuterol/Ipratropium) 3 Ml Ampul.neb 3 Ml NEB PRN Q4HRS PRN Ranitidine Hcl 150 Mg Capsule 150 Mg PO BID Refresh Classic Eye Drops (Polyvinyl Alcohol/Povidone/Pf) 1 Each Droperette 1 Drop OU BID Flonase Allergy Relief (Fluticasone Propionate) 9.9 Ml [place].susp 1 Sprays NS BID Celebrex (Celecoxib) 200 Mg Capsule 200 Mg PO BID Bisacodyl 10 Mg Supp.rect 10 Mg RC PRN DAILY PRN Acetaminophen 500 Mg Tablet 500 Mg PO PRN Q4HRS PRN Restasis (Cyclosporine) 1 Each Droperette 1 Drop EACHEYE BID Polyethylene Glycol 3350 17 Gm Powd.pack 17 Gm PO DAILY Fiber-Tabs (Calcium Polycarbophil) 625 Mg Tablet 625 Mg PO DAILY Cymbalta (Duloxetine Hcl) 30 Mg Capsule.dr 30 Mg PO DAILY 14 Days Stop Date 10/05/16 Lorazepam 1 Mg Tablet 1 Mg PO TID 12 Days Stop Date 10/03/16 Lorazepam 1 Mg Tablet 1 Mg PO DAILY PRN Docusate Sodium 100 Mg Capsule 100 Mg PO BID Diagnosis: Problems: (1) Anxiety disorder (2) Bipolar affective, mixed, sev w/ psych (3) Impulse control disorder (4) Schizoaffective disorder, chronic condition with acute exacerbation CRISTINO JI MD Oct 03, 2016 21:09
[2016-10-04 06:04] VITALS: BP 115/71
[2016-10-04 07:10] LABS: BASO % 1 % (0-3); EOS # 0.1 x10^3/uL (0.0-0.7); EOS % 4 % (0-3); HEMATOCRIT 37.2 % (36.0-47.0); HEMOGLOBIN 13.1 g/dL (12.0-15.5); LYMPH # 1.5 x10^3/uL (1.0-4.8); LYMPH % 39 % (24-48); MEAN CORPUSCULAR HEMOGLOBIN 34 pg (25-35); MEAN CORPUSCULAR HGB CONC 35 g/dL (31-37); MEAN CORPUSCULAR VOLUME 96 fL (79-100); MONO # 0.4 x10^3/uL (0.0-1.1); MONO % 9 % (0-9); NEUT # 1.9 x10^3uL (1.8-7.7); NEUT % 48 % (31-73); PLATELET COUNT 207 x10^3/uL (140-400); RED CELL DISTRIBUTION WIDTH 13.5 % (11.5-14.5); WHITE BLOOD COUNT 3.9 x10^3/uL (4.0-11.0)
[2016-10-04 07:17] LABS: ALBUMIN 3.4 g/dL (3.4-5.0); ALBUMIN/GLOBULIN RATIO 1.1 (1.0-1.7); GFR 52.6; MAGNESIUM 2.2 mg/dL (1.8-2.4); POTASSIUM 3.9 mmol/L (3.5-5.1); TOTAL BILIRUBIN 0.4 mg/dL (0.2-1.0); TOTAL PROTEIN 6.6 g/dL (6.4-8.2)
[2016-10-04] MEDS: DOCUSATE SODIUM 100 MG CAPSULE PO SCH ×2 (09:02→20:26)
[2016-10-04] MEDS: RIVASTIGMINE 13.3MG PATCH. TD SCH (09:02)
[2016-10-04] MEDS: DULOXETINE HCL 30 MG CAPSULE.DR. PO SCH (09:02)
[2016-10-04] MEDS: POLYVINYL ALCOHOL/POVIDONE/PF OPHTH SOLUTION DROPERETTE. OU SCH ×2 (09:02→20:27)
[2016-10-04] MEDS: CYCLOSPORINE 0.05% OPTH DROPERETTE. OU SCH ×2 (09:02→20:28)
[2016-10-04] MEDS: CALCIUM POLYCARBOPHIL 625 MG TABLET PO SCH (09:02)
[2016-10-04] MEDS: POLYETHYLENE GLYCOL 3350 17 GM PACKET. PO SCH (09:02)
[2016-10-04] MEDS: LORAZEPAM 0.5 MG TABLET PO SCH ×3 (09:03→20:28)
[2016-10-04] MEDS: CELECOXIB 200 MG CAPSULE PO SCH ×2 (09:03→20:27)
[2016-10-04] MEDS: FAMOTIDINE 20 MG TABLET PO SCH ×2 (09:03→20:26)
[2016-10-04] MEDS: QUEtiapine 25 MG TABLET. PO SCH ×4 (09:04→20:26)
[2016-10-04] MEDS: FLUTICASONE 50MCG/NASAL SPRAY 16GM BOTTLE. NS SCH (09:04)
[2016-10-04] MEDS: SALIVA STIMULANT AGENT MOUTHWASH 237ML BOTTLE. PO SCH (09:07)
--- NOTE | 2016-10-04 10:12 | PN ---
DATE: 10/02/2016 PSYCHIATRIC PROGRESS NOTE This is a late entry of 10/02/2016 covers elements not covered in my initial note. SUBJECTIVE: Per nursing report, the patient is oriented to herself and to the hospital. She at times, demanding compliant, but pleasant. REVIEW OF SYSTEMS: Ambulation impaired in her wheelchair. No CV, , pulmonary, eye system symptoms on review. She is somewhat obsessive about discharge plans wanting to be home and states she will find home help to help her. No CV, , pulmonary, eye system symptoms on review. MENTAL STATUS EXAM: Oriented to herself and situation. Speech coherent. She has a rather folksy mannerism to her speech, very pleasant. Abstraction fair, computation impaired, language function intact, attention span short, mood and affect, lability is improved. LABORATORY DATA: Reviewed. IMPRESSION: Schizoaffective disorder bipolar type, mixed with psychotic features, bipolar 1 disorder mixed with psychotic features; cognitive disorder, unspecified; anxiety disorder, unspecified. PLAN: Continue current psychotropics mentioned in my initial note. Adjust further as clinically indicated. MAN Alexandr JI MD DR: ONEL/sarah JOB#: [id number] / [id number]
--- NOTE | 2016-10-04 10:14 | PN ---
DATE: 10/03/2016 PSYCHIATRIC PROGRESS NOTE This is a late entry 10/03/2016, covers elements not covered in my initial note. SUBJECTIVE: Met with the patient at length evening of 10/03/2016 and staffed at treatment team meeting with the entire team morning of 10/03/2016 with Sidney, her DPOA attending. Reviewed the patient's history, possibility of her needing a level 2 placement competed appropriate state forms for this. She is sleeping about 5 to 6 hours a night. REVIEW OF SYSTEMS: Ambulation impaired, in a wheelchair. No CV, , pulmonary, eye system symptoms on review. MENTAL STATUS EXAM: Oriented to herself and situation. Speech is coherent . Abstraction fair, computation impaired, language function intact, attention span short. Mood and affect anxious, but improved. LABORATORY DATA: Reviewed. IMPRESSION: Bipolar 1 disorder, mixed with psychotic features, in partial remission. Cognitive disorder, unspecified. PLAN: Continue current psychotropics mentioned in my initial note. Adjust further as clinically indicated. MAN Alexandr JI MD DR: ONEL/sarah JOB#: [id number] / [id number]
[2016-10-04 15:45] VITALS: BP 112/62
[2016-10-04] MEDS: CHOLECALCIFEROL (VITAMIN D3) 1,000 UNIT TABLET PO SCH (16:15)
--- NOTE | 2016-10-04 21:13 | PDOC ---
Exam Rudolph Demential Exam: Rudolph Note: Please also refer to the separate dictated note~for this date of service dictated separately.~Patient seen individually. Discussed the patient with Nursing staff reviewed the chart.~Reviewed interim history and current functioning. Reviewed vital signs,~Labs/ Radiology~and current medications noted below. Continue current treatment with the changes noted in the dictated addendum note Assessment: Vital Signs: Vital Signs Date Time Temp Pulse Resp B/P Pulse Ox O2 Delivery O2 Flow Rate FiO2 10/04/16 15:45 97.8 67 18 112/62 96 10/02/16 15:43 Room Air 10/01/16 05:49 2.0 I&O Intake and Output 10/04/16 07:00 Intake Total 1200 ml Balance 1200 ml Intake Oral 1200 ml Labs: Laboratory Tests Test 10/04/16 06:30 White Blood Count 3.9x10^3/uL (4.0-11.0) L Red Blood Count 3.90x10^6/uL (3.50-5.40) Hemoglobin 13.1g/dL (12.0-15.5) Hematocrit 37.2% (36.0-47.0) Mean Corpuscular Volume 96fL (79-100) Mean Corpuscular Hemoglobin 34pg (25-35) Mean Corpuscular Hemoglobin Concent 35g/dL (31-37) Red Cell Distribution Width 13.5% (11.5-14.5) Platelet Count 207x10^3/uL (140-400) Neutrophils (%) (Auto) 48% (31-73) Lymphocytes (%) (Auto) 39% (24-48) Monocytes (%) (Auto) 9% (0-9) Eosinophils (%) (Auto) 4% (0-3) H Basophils (%) (Auto) 1% (0-3) Neutrophils # (Auto) 1.9x10^3uL (1.8-7.7) Lymphocytes # (Auto) 1.5x10^3/uL (1.0-4.8) Monocytes # (Auto) 0.4x10^3/uL (0.0-1.1) Eosinophils # (Auto) 0.1x10^3/uL (0.0-0.7) Basophils # (Auto) 0.0x10^3/uL (0.0-0.2) Sodium Level 140mmol/L (136-145) Potassium Level 3.9mmol/L (3.5-5.1) Chloride Level 105mmol/L (98-107) Carbon Dioxide Level 29mmol/L (21-32) Anion Gap 6 (6-14) Blood Urea Nitrogen 22mg/dL (7-20) H Creatinine 1.0mg/dL (0.6-1.0) Estimated GFR (Cockcroft-Gault) 52.6 BUN/Creatinine Ratio 22 (6-20) H Glucose Level 91mg/dL (70-99) Calcium Level 9.0mg/dL (8.5-10.1) Magnesium Level 2.2mg/dL (1.8-2.4) Total Bilirubin 0.4mg/dL (0.2-1.0) Aspartate Amino Transferase (AST) 18U/L (15-37) Alanine Aminotransferase (ALT) 18U/L (14-59) Alkaline Phosphatase 88U/L (46-116) Total Protein 6.6g/dL (6.4-8.2) Albumin 3.4g/dL (3.4-5.0) Albumin/Globulin Ratio 1.1 (1.0-1.7) Current Medications: Meds: Current Medications Acetaminophen (Tylenol) 650 mg PRN Q6HRS PRN PO MILD PAIN / TEMP Last administered on 09/26/16 08:20; Start 09/21/16 at 20:45 Multi-Ingredient Ointment (Analgesic [place]) 1 alejandra PRN QID PRN TP MUSCLE PAIN; Start 09/21/16 at 20:45 Al Hydroxide/Mg Hydroxide (Mylanta Plus Xs) 15 ml PRN AFTMEALHC PRN PO DYSPEPSIA; Start 09/21/16 at 20:45 Magnesium Hydroxide (Milk Of Magnesia) 2,400 mg PRN QHS PRN PO CONSTIPATION Last administered on 09/24/16 14:22; Start 09/21/16 at 20:45 Duloxetine HCl (Cymbalta) 30 mg DAILY PO Last administered on 10/04/16 09:02; Start 09/22/16 at 09:00 Lorazepam (Ativan) 1 mg PRN DAILY PRN PO ANXIETY Last administered on 23:20; Start 09/21/16 at 20:45 Lorazepam (Ativan) 1 mg TID PO Last administered on 09/22/16 14:46; Start at 21:00; Stop 09/22/16 at 18:35; Status DC Olanzapine (Zyprexa) 2.5 mg DAILY PO ; Start 09/22/16 at 09:00; Stop 09/22/16 at 09:00; Status DC Rivastigmine (Exelon) 1 patch DAILY TD ; Start 09/22/16 at 09:00; Stop 09/22/16 at 09:00; Status DC Bisacodyl (Dulcolax Tab) 10 mg PRN DAILY PRN PO CONSTIPATION; Start 09/21/16 at 21:00 Bisacodyl (Dulcolax Supp) 10 mg PRN DAILY PRN RC CONSTIPATION; Start 09/21/16 at 21:00 Calcium Polycarbophil (Fibercon) 625 mg DAILY PO Last administered on 09:02; Start 09/22/16 at 09:00 Celecoxib (Celebrex) 200 mg BID PO Last administered on 10/04/16 20:27; Start 09/21/16 at 21:00 Cyclosporine (Restasis) 1 drop BID OU Last administered on 10/04/16 20:28; Start 09/21/16 at 21:00 Docusate Sodium (Colace) 100 mg BID PO Last administered on 10/04/16 20:26; Start 09/21/16 at 21:00 Furosemide (Lasix) 20 mg Q3DAYS PO Last administered on 10/03/16 08:27; Start 09/24/16 at 09:00 Guaifenesin (Robitussin) 100 mg PRN Q6HRS PRN PO COUGH; Start 09/21/16 at 21:00 Albuterol Sulfate (Ventolin) 2.5 mg PRN Q4HRS PRN NEB SHORTNESS OF BREATH; Start 09/21/16 at 22:00 Nystatin (Mycostatin) 1 ml TID PO ; Start 09/21/16 at 21:00; Stop 09/21/16 at 23: 18; Status DC Polyethylene Glycol (miraLAX) 17 gm DAILY PO Last administered on 10/04/16 09: 02; Start 09/22/16 at 09:00 Artificial Tears (Refresh Classic) 1 drop BID OU Last administered on 20:27; Start 09/21/16 at 21:00 Saliva Substitute (Biotene Dry Mouth) 1 alejandra DAILY PO Last administered on 09:07; Start 09/22/16 at 09:00 Tramadol HCl (Ultram) 50 mg PRN QID PRN PO MODERATE PAIN; Start 09/21/16 at 21: 00; Stop 09/21/16 at 23:18; Status DC Non-Formulary Medication 1 sprays BID NS ; Start 09/21/16 at 21:00; Stop 09/21/16 at 21:48; Status DC Non-Formulary Medication 150 mg BID PO ; Start 09/21/16 at 21:00; Stop 09/21/16 at 21:48; Status DC Fluticasone Propionate (Flonase) 2 spray DAILY NS Last administered on 09:04; Start 09/22/16 at 09:00 Famotidine (Pepcid) 20 mg BID PO Last administered on 10/04/16 20:26; Start at 22:00 Nystatin (Mycostatin) 5 ml TID PO Last administered on 09/25/16 20:41; Start at 09:00; Stop 09/26/16 at 08:59; Status DC Olanzapine (Zyprexa) 2.5 mg DAILY PO Last administered on 09/26/16 07:49; Start 09/22/16 at 09:00; Stop 09/26/16 at 10:15; Status DC Rivastigmine (Exelon 13.3mg) 1 patch DAILY TD Last administered on 10/04/16 09 :02; Start 09/22/16 at 09:00 Ciprofloxacin (Cipro) 250 mg BID PO Last administered on 09/30/16 10:38; Start 09/22/16 at 21:00; Stop 09/30/16 at 14:45; Status DC Lorazepam (Ativan) 0.75 mg TID PO Last administered on 09/27/16 20:02; Start 09/22/16 at 21:00; Stop 09/27/16 at 21:00; Status DC Lorazepam (Ativan) 0.5 mg TID PO Last administered on 10/03/16 19:35; Start at 09:00; Stop 10/03/16 at 21:00; Status DC Lorazepam (Ativan) 0.25 mg TID PO Last administered on 10/04/16 20:28; Start 10/04/16 at 09:00 Quetiapine Fumarate (SEROquel) 12.5 mg BID92 PO Last administered on 09/26/16 07:49; Start 09/23/16 at 09:00; Stop 09/26/16 at 10:15; Status DC Fosfomycin Tromethamine (Monurol) 3 gm 1X ONCE PO ; Start 09/23/16 at 17:45; Stop 09/23/16 at 18:07; Status DC Quetiapine Fumarate (SEROquel) 12.5 mg QID PO Last administered on 10/04/16 20 :26; Start 09/26/16 at 13:00 Vitamin D (Vitamin D3) 2,000 unit DAILYBFRSUP PO Last administered on 16:15; Start 09/26/16 at 17:00 Olanzapine (Zyprexa Zydis) 2.5 mg PRN Q2HR PRN PO AGITATION Last administered on 09/30/16 05:51; Start 09/30/16 at 05:45 Active Scripts Active Reported Olanzapine 2.5 Mg Tablet 2.5 Mg PO DAILY EXELON 13.3mg/24hr (Rivastigmine) 1 Each Patch.td24 1 Patch TD DAILY Nystatin 100,000 Unit/1 Ml Oral.susp 5 Ml PO TID 4 Days Stop Date 09/25/16 Furosemide 20 Mg Tablet 20 Mg PO Q3DAYS Bisacodyl 5 Mg Tablet.dr 10 Mg PO PRN DAILY PRN Tramadol Hcl (Tramadol HCl) 50 Mg Tablet 50 Mg PO PRN BID PRN Biotene (Saliva Substitution Combo No.9) 1,000 Ml Mouthwash 30 Ml PO DAILY Guaifenesin 100 Mg/5 Ml Liquid 100 Mg PO PRN Q6HRS PRN Duoneb 0.5-3(2.5) Mg/3 Ml (Albuterol/Ipratropium) 3 Ml Ampul.neb 3 Ml NEB PRN Q4HRS PRN Ranitidine Hcl 150 Mg Capsule 150 Mg PO BID Refresh Classic Eye Drops (Polyvinyl Alcohol/Povidone/Pf) 1 Each Droperette 1 Drop OU BID Flonase Allergy Relief (Fluticasone Propionate) 9.9 Ml [place].susp 1 Sprays NS BID Celebrex (Celecoxib) 200 Mg Capsule 200 Mg PO BID Bisacodyl 10 Mg Supp.rect 10 Mg RC PRN DAILY PRN Acetaminophen 500 Mg Tablet 500 Mg PO PRN Q4HRS PRN Restasis (Cyclosporine) 1 Each Droperette 1 Drop EACHEYE BID Polyethylene Glycol 3350 17 Gm Powd.pack 17 Gm PO DAILY Fiber-Tabs (Calcium Polycarbophil) 625 Mg Tablet 625 Mg PO DAILY Cymbalta (Duloxetine Hcl) 30 Mg Capsule.dr 30 Mg PO DAILY 14 Days Stop Date 10/05/16 Lorazepam 1 Mg Tablet 1 Mg PO TID 12 Days Stop Date 10/03/16 Lorazepam 1 Mg Tablet 1 Mg PO DAILY PRN Docusate Sodium 100 Mg Capsule 100 Mg PO BID Diagnosis: Problems: (1) Anxiety disorder (2) Bipolar affective, mixed, sev w/ psych (3) Impulse control disorder (4) Schizoaffective disorder, chronic condition with acute exacerbation CRISTINO JI MD Oct 04, 2016 21:13
[2016-10-05 06:08] VITALS: BP 130/70
[2016-10-05] MEDS: POLYVINYL ALCOHOL/POVIDONE/PF OPHTH SOLUTION DROPERETTE. OU SCH ×2 (09:08→19:42)
[2016-10-05] MEDS: FLUTICASONE 50MCG/NASAL SPRAY 16GM BOTTLE. NS SCH (09:08)
[2016-10-05] MEDS: CYCLOSPORINE 0.05% OPTH DROPERETTE. OU SCH ×2 (09:08→19:42)
[2016-10-05] MEDS: RIVASTIGMINE 13.3MG PATCH. TD SCH (09:08)
[2016-10-05] MEDS: SALIVA STIMULANT AGENT MOUTHWASH 237ML BOTTLE. PO SCH (09:08)
[2016-10-05] MEDS: POLYETHYLENE GLYCOL 3350 17 GM PACKET. PO SCH (09:08)
[2016-10-05] MEDS: FAMOTIDINE 20 MG TABLET PO SCH ×2 (09:09→19:42)
[2016-10-05] MEDS: CALCIUM POLYCARBOPHIL 625 MG TABLET PO SCH (09:09)
[2016-10-05] MEDS: QUEtiapine 25 MG TABLET. PO SCH ×4 (09:09→19:42)
[2016-10-05] MEDS: DULOXETINE HCL 30 MG CAPSULE.DR. PO SCH (09:10)
[2016-10-05] MEDS: DOCUSATE SODIUM 100 MG CAPSULE PO SCH ×2 (09:10→19:42)
[2016-10-05] MEDS: CELECOXIB 200 MG CAPSULE PO SCH ×2 (09:10→19:42)
[2016-10-05] MEDS: LORAZEPAM 0.5 MG TABLET PO SCH ×3 (09:12→19:43)
--- NOTE | 2016-10-05 09:51 | PDOC ---
Exam Rudolph Demential Exam: Rudolph Note: Please also refer to the separate dictated note~for this date of service dictated separately.~Patient seen individually. Discussed the patient with Nursing staff reviewed the chart.~Reviewed interim history and current functioning. Reviewed vital signs,~Labs/ Radiology~and current medications noted below. Continue current treatment with the changes noted in the dictated addendum note Assessment: Vital Signs: Vital Signs Date Time Temp Pulse Resp B/P Pulse Ox O2 Delivery O2 Flow Rate FiO2 10/05/16 06:08 98.2 76 16 130/70 97 10/02/16 15:43 Room Air 10/01/16 05:49 2.0 I&O Intake and Output 10/05/16 07:00 Intake Total 960 ml Balance 960 ml Intake Oral 960 ml Current Medications: Meds: Current Medications Acetaminophen (Tylenol) 650 mg PRN Q6HRS PRN PO MILD PAIN / TEMP Last administered on 09/26/16 08:20; Start 09/21/16 at 20:45 Multi-Ingredient Ointment (Analgesic [place]) 1 alejandra PRN QID PRN TP MUSCLE PAIN; Start 09/21/16 at 20:45 Al Hydroxide/Mg Hydroxide (Mylanta Plus Xs) 15 ml PRN AFTMEALHC PRN PO DYSPEPSIA; Start 09/21/16 at 20:45 Magnesium Hydroxide (Milk Of Magnesia) 2,400 mg PRN QHS PRN PO CONSTIPATION Last administered on 09/24/16 14:22; Start 09/21/16 at 20:45 Duloxetine HCl (Cymbalta) 30 mg DAILY PO Last administered on 10/05/16 09:10; Start 09/22/16 at 09:00 Lorazepam (Ativan) 1 mg PRN DAILY PRN PO ANXIETY Last administered on 23:20; Start 09/21/16 at 20:45 Lorazepam (Ativan) 1 mg TID PO Last administered on 09/22/16 14:46; Start at 21:00; Stop 09/22/16 at 18:35; Status DC Olanzapine (Zyprexa) 2.5 mg DAILY PO ; Start 09/22/16 at 09:00; Stop 09/22/16 at 09:00; Status DC Rivastigmine (Exelon) 1 patch DAILY TD ; Start 09/22/16 at 09:00; Stop 09/22/16 at 09:00; Status DC Bisacodyl (Dulcolax Tab) 10 mg PRN DAILY PRN PO CONSTIPATION; Start 09/21/16 at 21:00 Bisacodyl (Dulcolax Supp) 10 mg PRN DAILY PRN RC CONSTIPATION; Start 09/21/16 at 21:00 Calcium Polycarbophil (Fibercon) 625 mg DAILY PO Last administered on 09:09; Start 09/22/16 at 09:00 Celecoxib (Celebrex) 200 mg BID PO Last administered on 10/05/16 09:10; Start 09/21/16 at 21:00 Cyclosporine (Restasis) 1 drop BID OU Last administered on 10/05/16 09:08; Start 09/21/16 at 21:00 Docusate Sodium (Colace) 100 mg BID PO Last administered on 10/05/16 09:10; Start 09/21/16 at 21:00 Furosemide (Lasix) 20 mg Q3DAYS PO Last administered on 10/03/16 08:27; Start 09/24/16 at 09:00 Guaifenesin (Robitussin) 100 mg PRN Q6HRS PRN PO COUGH; Start 09/21/16 at 21:00 Albuterol Sulfate (Ventolin) 2.5 mg PRN Q4HRS PRN NEB SHORTNESS OF BREATH; Start 09/21/16 at 22:00 Nystatin (Mycostatin) 1 ml TID PO ; Start 09/21/16 at 21:00; Stop 09/21/16 at 23: 18; Status DC Polyethylene Glycol (miraLAX) 17 gm DAILY PO Last administered on 10/05/16 09: 08; Start 09/22/16 at 09:00 Artificial Tears (Refresh Classic) 1 drop BID OU Last administered on 09:08; Start 09/21/16 at 21:00 Saliva Substitute (Biotene Dry Mouth) 1 alejandra DAILY PO Last administered on 09:08; Start 09/22/16 at 09:00 Tramadol HCl (Ultram) 50 mg PRN QID PRN PO MODERATE PAIN; Start 09/21/16 at 21: 00; Stop 09/21/16 at 23:18; Status DC Non-Formulary Medication 1 sprays BID NS ; Start 09/21/16 at 21:00; Stop 09/21/16 at 21:48; Status DC Non-Formulary Medication 150 mg BID PO ; Start 09/21/16 at 21:00; Stop 09/21/16 at 21:48; Status DC Fluticasone Propionate (Flonase) 2 spray DAILY NS Last administered on 09:08; Start 09/22/16 at 09:00 Famotidine (Pepcid) 20 mg BID PO Last administered on 10/05/16 09:09; Start at 22:00 Nystatin (Mycostatin) 5 ml TID PO Last administered on 09/25/16 20:41; Start at 09:00; Stop 09/26/16 at 08:59; Status DC Olanzapine (Zyprexa) 2.5 mg DAILY PO Last administered on 09/26/16 07:49; Start 09/22/16 at 09:00; Stop 09/26/16 at 10:15; Status DC Rivastigmine (Exelon 13.3mg) 1 patch DAILY TD Last administered on 10/05/16 09 :08; Start 09/22/16 at 09:00 Ciprofloxacin (Cipro) 250 mg BID PO Last administered on 09/30/16 10:38; Start 09/22/16 at 21:00; Stop 09/30/16 at 14:45; Status DC Lorazepam (Ativan) 0.75 mg TID PO Last administered on 09/27/16 20:02; Start 09/22/16 at 21:00; Stop 09/27/16 at 21:00; Status DC Lorazepam (Ativan) 0.5 mg TID PO Last administered on 10/03/16 19:35; Start at 09:00; Stop 10/03/16 at 21:00; Status DC Lorazepam (Ativan) 0.25 mg TID PO Last administered on 10/05/16 09:12; Start 10/04/16 at 09:00 Quetiapine Fumarate (SEROquel) 12.5 mg BID92 PO Last administered on 09/26/16 07:49; Start 09/23/16 at 09:00; Stop 09/26/16 at 10:15; Status DC Fosfomycin Tromethamine (Monurol) 3 gm 1X ONCE PO ; Start 09/23/16 at 17:45; Stop 09/23/16 at 18:07; Status DC Quetiapine Fumarate (SEROquel) 12.5 mg QID PO Last administered on 10/05/16 09 :09; Start 09/26/16 at 13:00 Vitamin D (Vitamin D3) 2,000 unit DAILYBFRSUP PO Last administered on 16:15; Start 09/26/16 at 17:00 Olanzapine (Zyprexa Zydis) 2.5 mg PRN Q2HR PRN PO AGITATION Last administered on 09/30/16 05:51; Start 09/30/16 at 05:45 Active Scripts Active Reported Olanzapine 2.5 Mg Tablet 2.5 Mg PO DAILY EXELON 13.3mg/24hr (Rivastigmine) 1 Each Patch.td24 1 Patch TD DAILY Nystatin 100,000 Unit/1 Ml Oral.susp 5 Ml PO TID 4 Days Stop Date 09/25/16 Furosemide 20 Mg Tablet 20 Mg PO Q3DAYS Bisacodyl 5 Mg Tablet.dr 10 Mg PO PRN DAILY PRN Tramadol Hcl (Tramadol HCl) 50 Mg Tablet 50 Mg PO PRN BID PRN Biotene (Saliva Substitution Combo No.9) 1,000 Ml Mouthwash 30 Ml PO DAILY Guaifenesin 100 Mg/5 Ml Liquid 100 Mg PO PRN Q6HRS PRN Duoneb 0.5-3(2.5) Mg/3 Ml (Albuterol/Ipratropium) 3 Ml Ampul.neb 3 Ml NEB PRN Q4HRS PRN Ranitidine Hcl 150 Mg Capsule 150 Mg PO BID Refresh Classic Eye Drops (Polyvinyl Alcohol/Povidone/Pf) 1 Each Droperette 1 Drop OU BID Flonase Allergy Relief (Fluticasone Propionate) 9.9 Ml Onward.susp 1 Sprays NS BID Celebrex (Celecoxib) 200 Mg Capsule 200 Mg PO BID Bisacodyl 10 Mg Supp.rect 10 Mg RC PRN DAILY PRN Acetaminophen 500 Mg Tablet 500 Mg PO PRN Q4HRS PRN Restasis (Cyclosporine) 1 Each Droperette 1 Drop EACHEYE BID Polyethylene Glycol 3350 17 Gm Powd.pack 17 Gm PO DAILY Fiber-Tabs (Calcium Polycarbophil) 625 Mg Tablet 625 Mg PO DAILY Cymbalta (Duloxetine Hcl) 30 Mg Capsule.dr 30 Mg PO DAILY 14 Days Stop Date 10/05/16 Lorazepam 1 Mg Tablet 1 Mg PO TID 12 Days Stop Date 10/03/16 Lorazepam 1 Mg Tablet 1 Mg PO DAILY PRN Docusate Sodium 100 Mg Capsule 100 Mg PO BID Diagnosis: Problems: (1) Anxiety disorder (2) Bipolar affective, mixed, sev w/ psych (3) Impulse control disorder (4) Schizoaffective disorder, chronic condition with acute exacerbation CRISTINO JI MD Oct 05, 2016 09:51
[2016-10-05 16:12] VITALS: BP 183/63
[2016-10-05] MEDS: CHOLECALCIFEROL (VITAMIN D3) 1,000 UNIT TABLET PO SCH (17:02)
--- NOTE | 2016-10-05 17:50 | RAD ---
PROCEDURE Bilateral lower extremity venous Doppler HISTORY [id number] sarika leg edema r>l TECHNIQUE Real-time imaging with compression, color flow imaging, and spectral Doppler with augmentation were utilized for evaluation. COMPARISON None FINDINGS The common femoral and femoral veins are compressible in both lower extremities. There is flow with color imaging in the common femoral veins. There is normal antegrade flow with augmentation. There is flow in the greater saphenous veins with color imaging. Deep femoral veins also had flow with color imaging. There is flow with color imaging and normal antegrade flow with augmentation in the femoral vein. The popliteal veins are compressible in both lower extremities and have flow with color imaging. There is flow in the calf veins with color imaging. IMPRESSION Negative for acute deep venous thrombosis. Electronically signed by: Jorge Hilton MD (Oct 05, 2016 17:48:56)
[2016-10-05] MEDS ORDERED: ENOXAPARIN ** NOTE DOSE ** SYRINGE SQ SCH (21:00)
[2016-10-06] MEDS: OLANZAPINE ZYDIS 5 MG TAB.RAPDIS PO PRN (00:50)
[2016-10-06 06:46] VITALS: BP 135/76
--- NOTE | 2016-10-06 08:18 | PN ---
DATE: 10/04/2016 This is a late entry for 10/04/2016 and covers elements not covered in my initial note of 10/04/2016. SUBJECTIVE: Overall, the patient has been doing better on the unit. She was busy in activity therapy and pleated go glover and was very pleased with this. She slept 6-3/4 hours. REVIEW OF SYSTEMS: Ambulation impaired, in her wheelchair. No CV, , pulmonary, eye, ENT system symptoms on review. MENTAL STATUS EXAM: Oriented to herself and situation. Speech has some latency, coherent. Abstraction fair, computation impaired, language function intact. Mood and affect most of the time is improved. However, as I met with her the evening of 10/04/2016, she seemed a little delusional, was talking that she was going to be the night of 10/04/2016, little suspicious, but redirectable. LABORATORY DATA: Reviewed. IMPRESSION: Unchanged from initial note. PLAN: Continue current psychotropics, but we may need to increase Cymbalta depending on her progress. CRISTINO JI MD DR: ONEL/sarah JOB#: [id number] / [id number]
--- NOTE | 2016-10-06 08:23 | PN ---
DATE: 10/05/2016 PSYCHIATRIC PROGRESS NOTE This late entry 10/05/2016 covers elements not covered in my initial note. Overall, the patient is compliant with her medications and shower. She has not voiced any more suicidal ideation like she did the evening of 10/04/2016. REVIEW OF SYSTEMS: Ambulation impaired, in a wheelchair. No CV, , pulmonary, eye system symptoms on review. MENTAL STATUS EXAM: Oriented to herself and situation. Speech has some latency, coherent. Abstraction fair, computation impaired, language function intact, attention span short. Mood and affect appears improved at times, somewhat dysphoric and she has a very folksy mannerism to her speech as I met with her the evening of 10/05/2016. LABORATORY DATA: Reviewed. IMPRESSION: Unchanged from initial note. PLAN: Continue current psychotropics. We will increase the Cymbalta to 60 mg a day. Adjust further as clinically indicated. CRISTINO JI MD DR: ONEL/sarah JOB#: [id number] / [id number]
[2016-10-06] MEDS: POLYETHYLENE GLYCOL 3350 17 GM PACKET. PO SCH (09:18)
[2016-10-06] MEDS: RIVASTIGMINE 13.3MG PATCH. TD SCH (09:18)
[2016-10-06] MEDS: CYCLOSPORINE 0.05% OPTH DROPERETTE. OU SCH ×2 (09:18→19:33)
[2016-10-06] MEDS: FLUTICASONE 50MCG/NASAL SPRAY 16GM BOTTLE. NS SCH (09:18)
[2016-10-06] MEDS: POLYVINYL ALCOHOL/POVIDONE/PF OPHTH SOLUTION DROPERETTE. OU SCH ×2 (09:18→19:31)
[2016-10-06] MEDS: FUROSEMIDE 20 MG TABLET PO SCH (09:18)
[2016-10-06] MEDS: LORAZEPAM 0.5 MG TABLET PO SCH ×3 (09:19→19:33)
[2016-10-06] MEDS: DOCUSATE SODIUM 100 MG CAPSULE PO SCH ×2 (09:19→19:31)
[2016-10-06] MEDS: CALCIUM POLYCARBOPHIL 625 MG TABLET PO SCH (09:19)
[2016-10-06] MEDS: QUEtiapine 25 MG TABLET. PO SCH ×4 (09:19→19:31)
[2016-10-06] MEDS: DULOXETINE HCL 30 MG CAPSULE.DR. PO SCH (09:19)
[2016-10-06] MEDS: FAMOTIDINE 20 MG TABLET PO SCH ×2 (09:19→19:31)
[2016-10-06] MEDS: CELECOXIB 200 MG CAPSULE PO SCH ×2 (09:19→19:31)
[2016-10-06] MEDS: SALIVA STIMULANT AGENT MOUTHWASH 237ML BOTTLE. PO SCH (09:24)
[2016-10-06] MEDS: CHOLECALCIFEROL (VITAMIN D3) 1,000 UNIT TABLET PO SCH (16:26)
[2016-10-06] MEDS ORDERED: PHENYLEPHRINE/COCOA BUTTER RECTAL SUPP. PR PRN (16:30)
[2016-10-06 16:38] VITALS: BP 114/82
--- NOTE | 2016-10-06 21:08 | PDOC ---
Exam Rudolph Demential Exam: Rudolph Note: Please also refer to the separate dictated note~for this date of service dictated separately.~Patient seen individually. Discussed the patient with Nursing staff reviewed the chart.~Reviewed interim history and current functioning. Reviewed vital signs,~Labs/ Radiology~and current medications noted below. Continue current treatment with the changes noted in the dictated addendum note Assessment: Vital Signs: Vital Signs Date Time Temp Pulse Resp B/P Pulse Ox O2 Delivery O2 Flow Rate FiO2 10/06/16 16:38 97.2 75 20 114/82 97 10/06/16 06:46 Room Air 10/01/16 05:49 2.0 I&O Intake and Output 10/06/16 07:00 Intake Total 960 ml Balance 960 ml Intake Oral 960 ml # Bowel Movements 2 Current Medications: Meds: Current Medications Acetaminophen (Tylenol) 650 mg PRN Q6HRS PRN PO MILD PAIN / TEMP Last administered on 09/26/16 08:20; Start 09/21/16 at 20:45 Multi-Ingredient Ointment (Analgesic Rosie) 1 alejandra PRN QID PRN TP MUSCLE PAIN; Start 09/21/16 at 20:45 Al Hydroxide/Mg Hydroxide (Mylanta Plus Xs) 15 ml PRN AFTMEALHC PRN PO DYSPEPSIA; Start 09/21/16 at 20:45 Magnesium Hydroxide (Milk Of Magnesia) 2,400 mg PRN QHS PRN PO CONSTIPATION Last administered on 09/24/16 14:22; Start 09/21/16 at 20:45 Duloxetine HCl (Cymbalta) 30 mg DAILY PO Last administered on 10/06/16 09:19; Start 09/22/16 at 09:00; Stop 10/06/16 at 09:30; Status DC Lorazepam (Ativan) 1 mg PRN DAILY PRN PO ANXIETY Last administered on 23:20; Start 09/21/16 at 20:45 Lorazepam (Ativan) 1 mg TID PO Last administered on 09/22/16 14:46; Start at 21:00; Stop 09/22/16 at 18:35; Status DC Olanzapine (Zyprexa) 2.5 mg DAILY PO ; Start 09/22/16 at 09:00; Stop 09/22/16 at 09:00; Status DC Rivastigmine (Exelon) 1 patch DAILY TD ; Start 09/22/16 at 09:00; Stop 09/22/16 at 09:00; Status DC Bisacodyl (Dulcolax Tab) 10 mg PRN DAILY PRN PO CONSTIPATION; Start 09/21/16 at 21:00 Bisacodyl (Dulcolax Supp) 10 mg PRN DAILY PRN RC CONSTIPATION; Start 09/21/16 at 21:00 Calcium Polycarbophil (Fibercon) 625 mg DAILY PO Last administered on 09:19; Start 09/22/16 at 09:00 Celecoxib (Celebrex) 200 mg BID PO Last administered on 10/06/16 19:31; Start 09/21/16 at 21:00 Cyclosporine (Restasis) 1 drop BID OU Last administered on 10/06/16 19:33; Start 09/21/16 at 21:00 Docusate Sodium (Colace) 100 mg BID PO Last administered on 10/06/16 19:31; Start 09/21/16 at 21:00 Furosemide (Lasix) 20 mg Q3DAYS PO Last administered on 10/06/16 09:18; Start 09/24/16 at 09:00 Guaifenesin (Robitussin) 100 mg PRN Q6HRS PRN PO COUGH; Start 09/21/16 at 21:00 Albuterol Sulfate (Ventolin) 2.5 mg PRN Q4HRS PRN NEB SHORTNESS OF BREATH; Start 09/21/16 at 22:00 Nystatin (Mycostatin) 1 ml TID PO ; Start 09/21/16 at 21:00; Stop 09/21/16 at 23: 18; Status DC Polyethylene Glycol (miraLAX) 17 gm DAILY PO Last administered on 10/06/16 09: 18; Start 09/22/16 at 09:00 Artificial Tears (Refresh Classic) 1 drop BID OU Last administered on 19:31; Start 09/21/16 at 21:00 Saliva Substitute (Biotene Dry Mouth) 1 alejandra DAILY PO Last administered on 09:24; Start 09/22/16 at 09:00 Tramadol HCl (Ultram) 50 mg PRN QID PRN PO MODERATE PAIN; Start 09/21/16 at 21: 00; Stop 09/21/16 at 23:18; Status DC Non-Formulary Medication 1 sprays BID NS ; Start 09/21/16 at 21:00; Stop 09/21/16 at 21:48; Status DC Non-Formulary Medication 150 mg BID PO ; Start 09/21/16 at 21:00; Stop 09/21/16 at 21:48; Status DC Fluticasone Propionate (Flonase) 2 spray DAILY NS Last administered on 09:18; Start 09/22/16 at 09:00 Famotidine (Pepcid) 20 mg BID PO Last administered on 10/06/16 19:31; Start at 22:00 Nystatin (Mycostatin) 5 ml TID PO Last administered on 09/25/16 20:41; Start at 09:00; Stop 09/26/16 at 08:59; Status DC Olanzapine (Zyprexa) 2.5 mg DAILY PO Last administered on 09/26/16 07:49; Start 09/22/16 at 09:00; Stop 09/26/16 at 10:15; Status DC Rivastigmine (Exelon 13.3mg) 1 patch DAILY TD Last administered on 10/06/16 09 :18; Start 09/22/16 at 09:00 Ciprofloxacin (Cipro) 250 mg BID PO Last administered on 09/30/16 10:38; Start 09/22/16 at 21:00; Stop 09/30/16 at 14:45; Status DC Lorazepam (Ativan) 0.75 mg TID PO Last administered on 09/27/16 20:02; Start 09/22/16 at 21:00; Stop 09/27/16 at 21:00; Status DC Lorazepam (Ativan) 0.5 mg TID PO Last administered on 10/03/16 19:35; Start at 09:00; Stop 10/03/16 at 21:00; Status DC Lorazepam (Ativan) 0.25 mg TID PO Last administered on 10/06/16 19:33; Start 10/04/16 at 09:00 Quetiapine Fumarate (SEROquel) 12.5 mg BID92 PO Last administered on 09/26/16 07:49; Start 09/23/16 at 09:00; Stop 09/26/16 at 10:15; Status DC Fosfomycin Tromethamine (Monurol) 3 gm 1X ONCE PO ; Start 09/23/16 at 17:45; Stop 09/23/16 at 18:07; Status DC Quetiapine Fumarate (SEROquel) 12.5 mg QID PO Last administered on 10/06/16 19 :31; Start 09/26/16 at 13:00 Vitamin D (Vitamin D3) 2,000 unit DAILYBFRSUP PO Last administered on 16:26; Start 09/26/16 at 17:00 Olanzapine (Zyprexa Zydis) 2.5 mg PRN Q2HR PRN PO AGITATION Last administered on 10/06/16 00:50; Start 09/30/16 at 05:45 Enoxaparin Sodium (Lovenox 80mg Syringe) 80 mg Q12HR SQ ; Start 10/05/16 at 21: 00; Stop 10/05/16 at 21:00; Status DC Duloxetine HCl (Cymbalta) 60 mg DAILY PO ; Start 10/07/16 at 09:00; Stop at 09:00; Status DC Duloxetine HCl (Cymbalta) 60 mg DAILY PO ; Start 10/07/16 at 09:00 Phenylephrine/ Shark Liver Oil (Preparation H) 1 supp PRN Q8HRS PRN [place] RECTAL PAIN; Start 10/06/16 at 16:30 Active Scripts Active Reported Olanzapine 2.5 Mg Tablet 2.5 Mg PO DAILY EXELON 13.3mg/24hr (Rivastigmine) 1 Each Patch.td24 1 Patch TD DAILY Nystatin 100,000 Unit/1 Ml Oral.susp 5 Ml PO TID 4 Days Stop Date 09/25/16 Furosemide 20 Mg Tablet 20 Mg PO Q3DAYS Bisacodyl 5 Mg Tablet.dr 10 Mg PO PRN DAILY PRN Tramadol Hcl (Tramadol HCl) 50 Mg Tablet 50 Mg PO PRN BID PRN Biotene (Saliva Substitution Combo No.9) 1,000 Ml Mouthwash 30 Ml PO DAILY Guaifenesin 100 Mg/5 Ml Liquid 100 Mg PO PRN Q6HRS PRN Duoneb 0.5-3(2.5) Mg/3 Ml (Albuterol/Ipratropium) 3 Ml Ampul.neb 3 Ml NEB PRN Q4HRS PRN Ranitidine Hcl 150 Mg Capsule 150 Mg PO BID Refresh Classic Eye Drops (Polyvinyl Alcohol/Povidone/Pf) 1 Each Droperette 1 Drop OU BID Flonase Allergy Relief (Fluticasone Propionate) 9.9 Ml [place].susp 1 Sprays NS BID Celebrex (Celecoxib) 200 Mg Capsule 200 Mg PO BID Bisacodyl 10 Mg Supp.rect 10 Mg RC PRN DAILY PRN Acetaminophen 500 Mg Tablet 500 Mg PO PRN Q4HRS PRN Restasis (Cyclosporine) 1 Each Droperette 1 Drop EACHEYE BID Polyethylene Glycol 3350 17 Gm Powd.pack 17 Gm PO DAILY Fiber-Tabs (Calcium Polycarbophil) 625 Mg Tablet 625 Mg PO DAILY Cymbalta (Duloxetine Hcl) 30 Mg Capsule.dr 30 Mg PO DAILY 14 Days Stop Date 10/05/16 Lorazepam 1 Mg Tablet 1 Mg PO TID 12 Days Stop Date 10/03/16 Lorazepam 1 Mg Tablet 1 Mg PO DAILY PRN Docusate Sodium 100 Mg Capsule 100 Mg PO BID Diagnosis: Problems: (1) Anxiety disorder (2) Bipolar affective, mixed, sev w/ psych (3) Impulse control disorder (4) Schizoaffective disorder, chronic condition with acute exacerbation CRISTINO JI MD Oct 06, 2016 21:07
[2016-10-07 05:52] VITALS: BP 118/70
[2016-10-07] MEDS ORDERED: DULOXETINE HCL 30 MG CAPSULE.DR. PO SCH (09:00)
[2016-10-07] MEDS: CELECOXIB 200 MG CAPSULE PO SCH ×2 (09:23→19:28)
[2016-10-07] MEDS: POLYVINYL ALCOHOL/POVIDONE/PF OPHTH SOLUTION DROPERETTE. OU SCH ×2 (09:23→19:30)
[2016-10-07] MEDS: FLUTICASONE 50MCG/NASAL SPRAY 16GM BOTTLE. NS SCH (09:23)
[2016-10-07] MEDS: CYCLOSPORINE 0.05% OPTH DROPERETTE. OU SCH ×2 (09:23→19:26)
[2016-10-07] MEDS: CALCIUM POLYCARBOPHIL 625 MG TABLET PO SCH (09:24)
[2016-10-07] MEDS: FAMOTIDINE 20 MG TABLET PO SCH ×2 (09:24→19:26)
[2016-10-07] MEDS: DOCUSATE SODIUM 100 MG CAPSULE PO SCH ×2 (09:24→19:26)
[2016-10-07] MEDS: QUEtiapine 25 MG TABLET. PO SCH ×4 (09:24→19:27)
[2016-10-07] MEDS: SALIVA STIMULANT AGENT MOUTHWASH 237ML BOTTLE. PO SCH (09:25)
[2016-10-07] MEDS: POLYETHYLENE GLYCOL 3350 17 GM PACKET. PO SCH (09:25)
[2016-10-07] MEDS: RIVASTIGMINE 13.3MG PATCH. TD SCH (09:25)
[2016-10-07] MEDS: DULOXETINE HCL 60 MG CAPSULE.DR. PO SCH (09:26)
[2016-10-07] MEDS: LORAZEPAM 0.5 MG TABLET PO SCH ×3 (09:27→19:26)
[2016-10-07] MEDS: CHOLECALCIFEROL (VITAMIN D3) 1,000 UNIT TABLET PO SCH (16:56)
[2016-10-07 16:59] VITALS: BP 100/61
--- NOTE | 2016-10-07 19:16 | PDOC ---
Exam Rudolph Demential Exam: Rudolph Note: Please also refer to the separate dictated note~for this date of service dictated separately.~Patient seen individually. Discussed the patient with Nursing staff reviewed the chart.~Reviewed interim history and current functioning. Reviewed vital signs,~Labs/ Radiology~and current medications noted below. Continue current treatment with the changes noted in the dictated addendum note Assessment: Vital Signs: Vital Signs Date Time Temp Pulse Resp B/P Pulse Ox O2 Delivery O2 Flow Rate FiO2 10/07/16 16:59 97.0 84 18 100/61 96 10/06/16 06:46 Room Air I&O Intake and Output 10/07/16 07:00 Intake Total 600 ml Balance 600 ml Intake Oral 600 ml # Bowel Movements 2 Current Medications: Meds: Current Medications Acetaminophen (Tylenol) 650 mg PRN Q6HRS PRN PO MILD PAIN / TEMP Last administered on 09/26/16 08:20; Start 09/21/16 at 20:45 Multi-Ingredient Ointment (Analgesic [place]) 1 alejandra PRN QID PRN TP MUSCLE PAIN; Start 09/21/16 at 20:45 Al Hydroxide/Mg Hydroxide (Mylanta Plus Xs) 15 ml PRN AFTMEALHC PRN PO DYSPEPSIA; Start 09/21/16 at 20:45 Magnesium Hydroxide (Milk Of Magnesia) 2,400 mg PRN QHS PRN PO CONSTIPATION Last administered on 09/24/16 14:22; Start 09/21/16 at 20:45 Duloxetine HCl (Cymbalta) 30 mg DAILY PO Last administered on 10/06/16 09:19; Start 09/22/16 at 09:00; Stop 10/06/16 at 09:30; Status DC Lorazepam (Ativan) 1 mg PRN DAILY PRN PO ANXIETY Last administered on 23:20; Start 09/21/16 at 20:45 Lorazepam (Ativan) 1 mg TID PO Last administered on 09/22/16 14:46; Start at 21:00; Stop 09/22/16 at 18:35; Status DC Olanzapine (Zyprexa) 2.5 mg DAILY PO ; Start 09/22/16 at 09:00; Stop 09/22/16 at 09:00; Status DC Rivastigmine (Exelon) 1 patch DAILY TD ; Start 09/22/16 at 09:00; Stop 09/22/16 at 09:00; Status DC Bisacodyl (Dulcolax Tab) 10 mg PRN DAILY PRN PO CONSTIPATION; Start 09/21/16 at 21:00 Bisacodyl (Dulcolax Supp) 10 mg PRN DAILY PRN RC CONSTIPATION; Start 09/21/16 at 21:00 Calcium Polycarbophil (Fibercon) 625 mg DAILY PO Last administered on 09:24; Start 09/22/16 at 09:00 Celecoxib (Celebrex) 200 mg BID PO Last administered on 10/07/16 09:23; Start 09/21/16 at 21:00 Cyclosporine (Restasis) 1 drop BID OU Last administered on 10/07/16 09:23; Start 09/21/16 at 21:00 Docusate Sodium (Colace) 100 mg BID PO Last administered on 10/07/16 09:24; Start 09/21/16 at 21:00 Furosemide (Lasix) 20 mg Q3DAYS PO Last administered on 10/06/16 09:18; Start 09/24/16 at 09:00 Guaifenesin (Robitussin) 100 mg PRN Q6HRS PRN PO COUGH; Start 09/21/16 at 21:00 Albuterol Sulfate (Ventolin) 2.5 mg PRN Q4HRS PRN NEB SHORTNESS OF BREATH; Start 09/21/16 at 22:00 Nystatin (Mycostatin) 1 ml TID PO ; Start 09/21/16 at 21:00; Stop 09/21/16 at 23: 18; Status DC Polyethylene Glycol (miraLAX) 17 gm DAILY PO Last administered on 10/07/16 09: 25; Start 09/22/16 at 09:00 Artificial Tears (Refresh Classic) 1 drop BID OU Last administered on 09:23; Start 09/21/16 at 21:00 Saliva Substitute (Biotene Dry Mouth) 1 alejandra DAILY PO Last administered on 09:25; Start 09/22/16 at 09:00 Tramadol HCl (Ultram) 50 mg PRN QID PRN PO MODERATE PAIN; Start 09/21/16 at 21: 00; Stop 09/21/16 at 23:18; Status DC Non-Formulary Medication 1 sprays BID NS ; Start 09/21/16 at 21:00; Stop 09/21/16 at 21:48; Status DC Non-Formulary Medication 150 mg BID PO ; Start 09/21/16 at 21:00; Stop 09/21/16 at 21:48; Status DC Fluticasone Propionate (Flonase) 2 spray DAILY NS Last administered on 09:23; Start 09/22/16 at 09:00 Famotidine (Pepcid) 20 mg BID PO Last administered on 10/07/16 09:24; Start at 22:00 Nystatin (Mycostatin) 5 ml TID PO Last administered on 09/25/16 20:41; Start at 09:00; Stop 09/26/16 at 08:59; Status DC Olanzapine (Zyprexa) 2.5 mg DAILY PO Last administered on 09/26/16 07:49; Start 09/22/16 at 09:00; Stop 09/26/16 at 10:15; Status DC Rivastigmine (Exelon 13.3mg) 1 patch DAILY TD Last administered on 10/07/16 09 :25; Start 09/22/16 at 09:00 Ciprofloxacin (Cipro) 250 mg BID PO Last administered on 09/30/16 10:38; Start 09/22/16 at 21:00; Stop 09/30/16 at 14:45; Status DC Lorazepam (Ativan) 0.75 mg TID PO Last administered on 09/27/16 20:02; Start 09/22/16 at 21:00; Stop 09/27/16 at 21:00; Status DC Lorazepam (Ativan) 0.5 mg TID PO Last administered on 10/03/16 19:35; Start at 09:00; Stop 10/03/16 at 21:00; Status DC Lorazepam (Ativan) 0.25 mg TID PO Last administered on 10/07/16 13:44; Start 10/04/16 at 09:00 Quetiapine Fumarate (SEROquel) 12.5 mg BID92 PO Last administered on 09/26/16 07:49; Start 09/23/16 at 09:00; Stop 09/26/16 at 10:15; Status DC Fosfomycin Tromethamine (Monurol) 3 gm 1X ONCE PO ; Start 09/23/16 at 17:45; Stop 09/23/16 at 18:07; Status DC Quetiapine Fumarate (SEROquel) 12.5 mg QID PO Last administered on 10/07/16 16 :57; Start 09/26/16 at 13:00 Vitamin D (Vitamin D3) 2,000 unit DAILYBFRSUP PO Last administered on 16:56; Start 09/26/16 at 17:00 Olanzapine (Zyprexa Zydis) 2.5 mg PRN Q2HR PRN PO AGITATION Last administered on 10/06/16 00:50; Start 09/30/16 at 05:45 Enoxaparin Sodium (Lovenox 80mg Syringe) 80 mg Q12HR SQ ; Start 10/05/16 at 21: 00; Stop 10/05/16 at 21:00; Status DC Duloxetine HCl (Cymbalta) 60 mg DAILY PO ; Start 10/07/16 at 09:00; Stop at 09:00; Status DC Duloxetine HCl (Cymbalta) 60 mg DAILY PO Last administered on 10/07/16 09:26; Start 10/07/16 at 09:00 Phenylephrine/ Shark Liver Oil (Preparation H) 1 supp PRN Q8HRS PRN [place] RECTAL PAIN; Start 10/06/16 at 16:30 Active Scripts Active Reported Olanzapine 2.5 Mg Tablet 2.5 Mg PO DAILY EXELON 13.3mg/24hr (Rivastigmine) 1 Each Patch.td24 1 Patch TD DAILY Nystatin 100,000 Unit/1 Ml Oral.susp 5 Ml PO TID 4 Days Stop Date 09/25/16 Furosemide 20 Mg Tablet 20 Mg PO Q3DAYS Bisacodyl 5 Mg Tablet.dr 10 Mg PO PRN DAILY PRN Tramadol Hcl (Tramadol HCl) 50 Mg Tablet 50 Mg PO PRN BID PRN Biotene (Saliva Substitution Combo No.9) 1,000 Ml Mouthwash 30 Ml PO DAILY Guaifenesin 100 Mg/5 Ml Liquid 100 Mg PO PRN Q6HRS PRN Duoneb 0.5-3(2.5) Mg/3 Ml (Albuterol/Ipratropium) 3 Ml Ampul.neb 3 Ml NEB PRN Q4HRS PRN Ranitidine Hcl 150 Mg Capsule 150 Mg PO BID Refresh Classic Eye Drops (Polyvinyl Alcohol/Povidone/Pf) 1 Each Droperette 1 Drop OU BID Flonase Allergy Relief (Fluticasone Propionate) 9.9 Ml [place].susp 1 Sprays NS BID Celebrex (Celecoxib) 200 Mg Capsule 200 Mg PO BID Bisacodyl 10 Mg Supp.rect 10 Mg RC PRN DAILY PRN Acetaminophen 500 Mg Tablet 500 Mg PO PRN Q4HRS PRN Restasis (Cyclosporine) 1 Each Droperette 1 Drop EACHEYE BID Polyethylene Glycol 3350 17 Gm Powd.pack 17 Gm PO DAILY Fiber-Tabs (Calcium Polycarbophil) 625 Mg Tablet 625 Mg PO DAILY Cymbalta (Duloxetine Hcl) 30 Mg Capsule.dr 30 Mg PO DAILY 14 Days Stop Date 10/05/16 Lorazepam 1 Mg Tablet 1 Mg PO TID 12 Days Stop Date 10/03/16 Lorazepam 1 Mg Tablet 1 Mg PO DAILY PRN Docusate Sodium 100 Mg Capsule 100 Mg PO BID Diagnosis: Problems: (1) Anxiety disorder (2) Bipolar affective, mixed, sev w/ psych (3) Impulse control disorder (4) Schizoaffective disorder, chronic condition with acute exacerbation CRISTINO JI MD Oct 07, 2016 19:16
--- NOTE | 2016-10-07 22:08 | PN ---
DATE: 10/06/2016 PSYCHIATRIC PROGRESS NOTE This is a late entry for 10/06/2016, covers elements not covered in my initial note. SUBJECTIVE: Per nursing report, the patient remains somewhat withdrawn on the unit, less delusional, drowsy at times. She had her Doppler of her lower extremity, but is negative for venous thromboembolism. REVIEW OF SYSTEMS: Ambulation impaired, in her wheelchair. No CV, , pulmonary, eye system symptoms on review. MENTAL STATUS EXAM: Oriented to herself and situation. Speech is coherent, abstraction fair, computation impaired, language function intact, attention span short. Mood and affect, lability is improved. LABORATORY DATA: Reviewed. IMPRESSION: Bipolar 1 disorder, mixed with psychotic features, in partial remission; cognitive disorder, unspecified; anxiety disorder, unspecified. PLAN: Continue current psychotropics including Seroquel, Cymbalta, and Exelon patch. Taper the Ativan. Adjust further as clinically indicated. CRISTINO JI MD DR: ONEL/sarah JOB#: [id number] / [id number]
[2016-10-07] MEDS: OLANZAPINE ZYDIS 5 MG TAB.RAPDIS PO PRN (22:15)
[2016-10-08 06:11] VITALS: BP 151/67
[2016-10-08] MEDS: POLYETHYLENE GLYCOL 3350 17 GM PACKET. PO SCH (07:50)
[2016-10-08] MEDS: DULOXETINE HCL 60 MG CAPSULE.DR. PO SCH (07:51)
[2016-10-08] MEDS: QUEtiapine 25 MG TABLET. PO SCH ×4 (07:51→19:10)
[2016-10-08] MEDS: POLYVINYL ALCOHOL/POVIDONE/PF OPHTH SOLUTION DROPERETTE. OU SCH ×2 (07:51→19:05)
[2016-10-08] MEDS: RIVASTIGMINE 13.3MG PATCH. TD SCH (07:51)
[2016-10-08] MEDS: CELECOXIB 200 MG CAPSULE PO SCH ×2 (07:51→19:09)
[2016-10-08] MEDS: CALCIUM POLYCARBOPHIL 625 MG TABLET PO SCH (07:51)
[2016-10-08] MEDS: CYCLOSPORINE 0.05% OPTH DROPERETTE. OU SCH ×2 (07:51→19:05)
[2016-10-08] MEDS: DOCUSATE SODIUM 100 MG CAPSULE PO SCH ×2 (07:51→19:10)
[2016-10-08] MEDS: FAMOTIDINE 20 MG TABLET PO SCH ×2 (07:51→19:10)
[2016-10-08] MEDS: SALIVA STIMULANT AGENT MOUTHWASH 237ML BOTTLE. PO SCH (07:53)
[2016-10-08] MEDS: LORAZEPAM 0.5 MG TABLET PO SCH ×3 (07:53→19:08)
[2016-10-08] MEDS: FLUTICASONE 50MCG/NASAL SPRAY 16GM BOTTLE. NS SCH (07:53)
[2016-10-08 15:49] VITALS: BP 115/70
[2016-10-08] MEDS: CHOLECALCIFEROL (VITAMIN D3) 1,000 UNIT TABLET PO SCH (16:41)
--- NOTE | 2016-10-08 20:58 | PDOC ---
Exam Rudolph Demential Exam: Rudolph Note: Please also refer to the separate dictated note~for this date of service dictated separately.~Patient seen individually. Discussed the patient with Nursing staff reviewed the chart.~Reviewed interim history and current functioning. Reviewed vital signs,~Labs/ Radiology~and current medications noted below. Continue current treatment with the changes noted in the dictated addendum note Assessment: Vital Signs: Vital Signs Date Time Temp Pulse Resp B/P Pulse Ox O2 Delivery O2 Flow Rate FiO2 10/08/16 15:49 97.5 83 18 115/70 95 10/06/16 06:46 Room Air I&O Intake and Output 10/08/16 07:00 Intake Total 960 ml Balance 960 ml Intake Oral 960 ml # Bowel Movements 2 Current Medications: Meds: Current Medications Acetaminophen (Tylenol) 650 mg PRN Q6HRS PRN PO MILD PAIN / TEMP Last administered on 09/26/16 08:20; Start 09/21/16 at 20:45 Multi-Ingredient Ointment (Analgesic Fallon) 1 alejandra PRN QID PRN TP MUSCLE PAIN; Start 09/21/16 at 20:45 Al Hydroxide/Mg Hydroxide (Mylanta Plus Xs) 15 ml PRN AFTMEALHC PRN PO DYSPEPSIA; Start 09/21/16 at 20:45 Magnesium Hydroxide (Milk Of Magnesia) 2,400 mg PRN QHS PRN PO CONSTIPATION Last administered on 09/24/16 14:22; Start 09/21/16 at 20:45 Duloxetine HCl (Cymbalta) 30 mg DAILY PO Last administered on 10/06/16 09:19; Start 09/22/16 at 09:00; Stop 10/06/16 at 09:30; Status DC Lorazepam (Ativan) 1 mg PRN DAILY PRN PO ANXIETY Last administered on 23:20; Start 09/21/16 at 20:45 Lorazepam (Ativan) 1 mg TID PO Last administered on 09/22/16 14:46; Start at 21:00; Stop 09/22/16 at 18:35; Status DC Olanzapine (Zyprexa) 2.5 mg DAILY PO ; Start 09/22/16 at 09:00; Stop 09/22/16 at 09:00; Status DC Rivastigmine (Exelon) 1 patch DAILY TD ; Start 09/22/16 at 09:00; Stop 09/22/16 at 09:00; Status DC Bisacodyl (Dulcolax Tab) 10 mg PRN DAILY PRN PO CONSTIPATION; Start 09/21/16 at 21:00 Bisacodyl (Dulcolax Supp) 10 mg PRN DAILY PRN RC CONSTIPATION; Start 09/21/16 at 21:00 Calcium Polycarbophil (Fibercon) 625 mg DAILY PO Last administered on 07:51; Start 09/22/16 at 09:00 Celecoxib (Celebrex) 200 mg BID PO Last administered on 10/08/16 19:09; Start 09/21/16 at 21:00 Cyclosporine (Restasis) 1 drop BID OU Last administered on 10/08/16 19:05; Start 09/21/16 at 21:00 Docusate Sodium (Colace) 100 mg BID PO Last administered on 10/08/16 19:10; Start 09/21/16 at 21:00 Furosemide (Lasix) 20 mg Q3DAYS PO Last administered on 10/06/16 09:18; Start 09/24/16 at 09:00 Guaifenesin (Robitussin) 100 mg PRN Q6HRS PRN PO COUGH; Start 09/21/16 at 21:00 Albuterol Sulfate (Ventolin) 2.5 mg PRN Q4HRS PRN NEB SHORTNESS OF BREATH; Start 09/21/16 at 22:00 Nystatin (Mycostatin) 1 ml TID PO ; Start 09/21/16 at 21:00; Stop 09/21/16 at 23: 18; Status DC Polyethylene Glycol (miraLAX) 17 gm DAILY PO Last administered on 10/08/16 07: 50; Start 09/22/16 at 09:00 Artificial Tears (Refresh Classic) 1 drop BID OU Last administered on 19:05; Start 09/21/16 at 21:00 Saliva Substitute (Biotene Dry Mouth) 1 alejandra DAILY PO Last administered on 07:53; Start 09/22/16 at 09:00 Tramadol HCl (Ultram) 50 mg PRN QID PRN PO MODERATE PAIN; Start 09/21/16 at 21: 00; Stop 09/21/16 at 23:18; Status DC Non-Formulary Medication 1 sprays BID NS ; Start 09/21/16 at 21:00; Stop 09/21/16 at 21:48; Status DC Non-Formulary Medication 150 mg BID PO ; Start 09/21/16 at 21:00; Stop 09/21/16 at 21:48; Status DC Fluticasone Propionate (Flonase) 2 spray DAILY NS Last administered on 07:53; Start 09/22/16 at 09:00 Famotidine (Pepcid) 20 mg BID PO Last administered on 10/08/16 19:10; Start at 22:00 Nystatin (Mycostatin) 5 ml TID PO Last administered on 09/25/16 20:41; Start at 09:00; Stop 09/26/16 at 08:59; Status DC Olanzapine (Zyprexa) 2.5 mg DAILY PO Last administered on 09/26/16 07:49; Start 09/22/16 at 09:00; Stop 09/26/16 at 10:15; Status DC Rivastigmine (Exelon 13.3mg) 1 patch DAILY TD Last administered on 10/08/16 07 :51; Start 09/22/16 at 09:00 Ciprofloxacin (Cipro) 250 mg BID PO Last administered on 09/30/16 10:38; Start 09/22/16 at 21:00; Stop 09/30/16 at 14:45; Status DC Lorazepam (Ativan) 0.75 mg TID PO Last administered on 09/27/16 20:02; Start 09/22/16 at 21:00; Stop 09/27/16 at 21:00; Status DC Lorazepam (Ativan) 0.5 mg TID PO Last administered on 10/03/16 19:35; Start at 09:00; Stop 10/03/16 at 21:00; Status DC Lorazepam (Ativan) 0.25 mg TID PO Last administered on 10/08/16 19:08; Start 10/04/16 at 09:00 Quetiapine Fumarate (SEROquel) 12.5 mg BID92 PO Last administered on 09/26/16 07:49; Start 09/23/16 at 09:00; Stop 09/26/16 at 10:15; Status DC Fosfomycin Tromethamine (Monurol) 3 gm 1X ONCE PO ; Start 09/23/16 at 17:45; Stop 09/23/16 at 18:07; Status DC Quetiapine Fumarate (SEROquel) 12.5 mg QID PO Last administered on 10/08/16 19 :10; Start 09/26/16 at 13:00 Vitamin D (Vitamin D3) 2,000 unit DAILYBFRSUP PO Last administered on 16:41; Start 09/26/16 at 17:00 Olanzapine (Zyprexa Zydis) 2.5 mg PRN Q2HR PRN PO AGITATION Last administered on 10/07/16 22:15; Start 09/30/16 at 05:45 Enoxaparin Sodium (Lovenox 80mg Syringe) 80 mg Q12HR SQ ; Start 10/05/16 at 21: 00; Stop 10/05/16 at 21:00; Status DC Duloxetine HCl (Cymbalta) 60 mg DAILY PO ; Start 10/07/16 at 09:00; Stop at 09:00; Status DC Duloxetine HCl (Cymbalta) 60 mg DAILY PO Last administered on 10/08/16 07:51; Start 10/07/16 at 09:00 Phenylephrine/ Shark Liver Oil (Preparation H) 1 supp PRN Q8HRS PRN VA RECTAL PAIN; Start 10/06/16 at 16:30 Active Scripts Active Reported Olanzapine 2.5 Mg Tablet 2.5 Mg PO DAILY EXELON 13.3mg/24hr (Rivastigmine) 1 Each Patch.td24 1 Patch TD DAILY Nystatin 100,000 Unit/1 Ml Oral.susp 5 Ml PO TID 4 Days Stop Date 09/25/16 Furosemide 20 Mg Tablet 20 Mg PO Q3DAYS Bisacodyl 5 Mg Tablet.dr 10 Mg PO PRN DAILY PRN Tramadol Hcl (Tramadol HCl) 50 Mg Tablet 50 Mg PO PRN BID PRN Biotene (Saliva Substitution Combo No.9) 1,000 Ml Mouthwash 30 Ml PO DAILY Guaifenesin 100 Mg/5 Ml Liquid 100 Mg PO PRN Q6HRS PRN Duoneb 0.5-3(2.5) Mg/3 Ml (Albuterol/Ipratropium) 3 Ml Ampul.neb 3 Ml NEB PRN Q4HRS PRN Ranitidine Hcl 150 Mg Capsule 150 Mg PO BID Refresh Classic Eye Drops (Polyvinyl Alcohol/Povidone/Pf) 1 Each Droperette 1 Drop OU BID Flonase Allergy Relief (Fluticasone Propionate) 9.9 Ml [place].susp 1 Sprays NS BID Celebrex (Celecoxib) 200 Mg Capsule 200 Mg PO BID Bisacodyl 10 Mg Supp.rect 10 Mg RC PRN DAILY PRN Acetaminophen 500 Mg Tablet 500 Mg PO PRN Q4HRS PRN Restasis (Cyclosporine) 1 Each Droperette 1 Drop EACHEYE BID Polyethylene Glycol 3350 17 Gm Powd.pack 17 Gm PO DAILY Fiber-Tabs (Calcium Polycarbophil) 625 Mg Tablet 625 Mg PO DAILY Cymbalta (Duloxetine Hcl) 30 Mg Capsule.dr 30 Mg PO DAILY 14 Days Stop Date 10/05/16 Lorazepam 1 Mg Tablet 1 Mg PO TID 12 Days Stop Date 10/03/16 Lorazepam 1 Mg Tablet 1 Mg PO DAILY PRN Docusate Sodium 100 Mg Capsule 100 Mg PO BID Diagnosis: Problems: (1) Anxiety disorder (2) Bipolar affective, mixed, sev w/ psych (3) Impulse control disorder (4) Schizoaffective disorder, chronic condition with acute exacerbation CRISTINO JI MD Oct 08, 2016 20:58
[2016-10-09] MEDS ORDERED: ACET325T9 PO (02:39)
[2016-10-09] MEDS ORDERED: ALBU2.5V5 NEB (02:40)
[2016-10-09] MEDS ORDERED: CHOL10003 PO (02:42)
[2016-10-09] MEDS ORDERED: FAMO20TA5 PO (02:44)
[2016-10-09] MEDS ORDERED: LORA0.5T PO (02:47)
[2016-10-09] MEDS ORDERED: MAG30ORA2 PO (02:49)
[2016-10-09] MEDS ORDERED: MAGN2400 PO (02:51)
[2016-10-09] MEDS ORDERED: OLAN5TAB5 PO (02:53)
[2016-10-09] MEDS ORDERED: METH29OI TP (02:53)
[2016-10-09] MEDS ORDERED: PHEN1SUP75 RC (02:55)
[2016-10-09] MEDS ORDERED: QUET25TA PO (02:57)
[2016-10-09 05:58] VITALS: BP 112/67
[2016-10-09] MEDS: CELECOXIB 200 MG CAPSULE PO SCH (08:08)
[2016-10-09] MEDS: POLYETHYLENE GLYCOL 3350 17 GM PACKET. PO SCH (08:08)
[2016-10-09] MEDS: CYCLOSPORINE 0.05% OPTH DROPERETTE. OU SCH (08:08)
[2016-10-09] MEDS: RIVASTIGMINE 13.3MG PATCH. TD SCH (08:08)
[2016-10-09] MEDS: POLYVINYL ALCOHOL/POVIDONE/PF OPHTH SOLUTION DROPERETTE. OU SCH (08:08)
[2016-10-09] MEDS: FUROSEMIDE 20 MG TABLET PO SCH (08:09)
[2016-10-09] MEDS: CALCIUM POLYCARBOPHIL 625 MG TABLET PO SCH (08:09)
[2016-10-09] MEDS: DOCUSATE SODIUM 100 MG CAPSULE PO SCH (08:09)
[2016-10-09] MEDS: FAMOTIDINE 20 MG TABLET PO SCH (08:09)
[2016-10-09] MEDS: QUEtiapine 25 MG TABLET. PO SCH ×2 (08:09→12:55)
[2016-10-09] MEDS: DULOXETINE HCL 60 MG CAPSULE.DR. PO SCH (08:09)
[2016-10-09] MEDS: FLUTICASONE 50MCG/NASAL SPRAY 16GM BOTTLE. NS SCH (08:10)
[2016-10-09] MEDS: LORAZEPAM 0.5 MG TABLET PO SCH ×2 (08:11→12:56)
[2016-10-09] MEDS: SALIVA STIMULANT AGENT MOUTHWASH 237ML BOTTLE. PO SCH (08:11)
--- NOTE | 2016-10-10 01:21 | PN ---
DATE: 10/08/2016 PSYCHIATRIC PROGRESS NOTE This is a late entry for 10/08/2016, covers elements not covered in my initial note. SUBJECTIVE: Per nursing report, the patient remains in a wheelchair, takes two to assist her for transfers; otherwise, compliant, little anxious. REVIEW OF SYSTEMS: Ambulation impaired. No CV, , pulmonary, eye system symptoms on review. MENTAL STATUS EXAM: Oriented to herself and situation. Speech has some latency, coherent. She has some typical speech mannerisms, which are in fact very pleasant, but she is not aware of this. Abstraction fair, computation impaired, language function intact, attention span short. Mood and affect, less anxious, less labile. No suicidal or homicidal ideation. LABORATORY DATA: Reviewed. IMPRESSION: Unchanged from initial note. PLAN: Continue current psychotropics. Possible transition to a lower level of care later this week. MAN Alexandr JI MD DR: ONEL/sarah JOB#: [id number] / [id number]
--- NOTE | 2016-10-10 02:18 | PN ---
DATE: 10/07/2016 PSYCHIATRIC PROGRESS NOTE This is a late entry of 10/07/2016. Covers elements not covered in my initial note. SUBJECTIVE: Overall, the patient has been calm, compliant, at times a little anxious, attention seeking, especially when the family of her roommate visited. REVIEW OF SYSTEMS: Ambulation impaired, in a wheelchair. No CV, , pulmonary, eye system symptoms on review. MENTAL STATUS EXAM: Oriented to herself and situation. Speech has some latency, coherent. She is preoccupied with discharge plans and I processed with abstraction fair, computation impaired, language function intact. Mood and affect is showing improvement. No suicidal or homicidal ideation. LABORATORY DATA: Reviewed. IMPRESSION: Bipolar 1 disorder, mixed with psychotic features, in partial remission; anxiety disorder, unspecified. Rest diagnosis unchanged. PLAN: Continue psychotropics mentioned in my initial note, adjust as clinically indicated. MAN Alexandr JI MD DR: ONEL/sarah JOB#: [id number] / [id number]
--- NOTE | 2016-10-11 10:48 | DS ---
DATE OF DISCHARGE: 10/09/2016 DISCHARGE SUMMARY/PSYCHIATRIC PROGRESS NOTE This is a late entry for 10/09/2016. REASON FOR ADMISSION: Please refer to the admission history for details. Briefly, the patient is an 86-year-old female, referred to us from [facility] on account of increasing mood swings, hallucinations, paranoid, believing people were trying to kill her. This was within the context of history of bipolar disorder and some memory deficits and worsening psychotic symptoms. SIGNIFICANT FINDINGS AND CLINICAL COURSE: Following admission, the patient was seen daily individually by myself from a psychiatric standpoint, followed medically per Dr. Andrew/Dr Vance. The patient remains somewhat anxious, labile at times. Adjustments were made in her psychotropics and she seemed to respond to a combination of Exelon patch 13.3 mg a day, Cymbalta 60 mg a day, Ativan 0.25 t.i.d. and 1 mg daily p.r.n., Seroquel 12.5 mg 4 times a day, Zyprexa p.r.n. She had a questionable UTI at admission, treated on Cipro, but final culture was E. coli 50,000 per mL and Cipro was discontinued. Prior to discharge on 10/09/2016 Temperature 97.8, BP 118/70, pulse 83, respirations 18. REVIEW OF SYSTEMS: Ambulation impaired in her wheelchair. No CV, , pulmonary, eye system symptoms on review. MENTAL STATUS EXAM: Oriented to herself and situation and otherwise reasonably oriented, though she had some short term memory deficits. Speech coherent, abstraction fair, computation impaired, language function intact, attention span short. Mood and affect was improved, less labile. No active suicidal or homicidal ideation prior to discharge and paranoia seemed to have subsided. FINAL DIAGNOSES: Bipolar 1 disorder, unspecified versus schizoaffective disorder, bipolar type, mixed with psychotic features, and partial remission; anxiety disorder, unspecified; psychotic disorder, unspecified. Rest diagnosis unchanged from admission. DISCHARGE MEDICATIONS: Please refer to the MRAD. DISCHARGE INSTRUCTIONS: Outpatient psychiatric and medical followup at the halfway. CRISTINO JI MD DR: ONEL/sarah JOB#: [id number] / [id number]
== END 2016-10-09 13:06 | DRG 885 ==
LOC: EEVIPCON → GEROPSY 17:17
PROVIDERS: ADMIT Psychiatry & Neurology Psychiatry; ATTEND Psychiatry & Neurology Psychiatry
DX: F25.0 Schizoaffective disorder, bipolar type (principal); N39.0 Urinary tract infection, site not specified; F43.23 Adjustment disorder with mixed anxiety and depressed mood; F31.60 Bipolar disorder, current episode mixed, unspecified; E78.5 Hyperlipidemia, unspecified; F09 Unspecified mental disorder due to known physiological condition; F41.1 Generalized anxiety disorder; F63.9 Impulse disorder, unspecified; G20 Parkinson's disease; G47.00 Insomnia, unspecified; I10 Essential (primary) hypertension; J44.9 Chronic obstructive pulmonary disease, unspecified; M15.9 Polyosteoarthritis, unspecified; M81.0 Age-related osteoporosis without current pathological fracture; Z96.653 Presence of artificial knee joint, bilateral; Z99.3 Dependence on wheelchair; Z88.0 Allergy status to penicillin; Z88.2 Allergy status to sulfonamides; Z88.8 Allergy status to other drugs, medicaments and biological substances
CPT/HCPCS: 36415; 80053; 80061; 82306; 82607; 83036; 83540; 83550; 83735; 84436; 84443; 84480; 85027; 86592; 86593; 93005; 93970; 97110; 97116; 97530; 97535